=== PATIENT | female | born 1960 | race Caucasian/White ===

== ENCOUNTER 2022-05-07 12:58 | Outpatient (CLI) | payer MEDICARE ==
[2022-05-07 14:16] VITALS: BP 114/78
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
== END 2022-05-07 12:59 | disposition home or self-care (01) ==
LOC: SC 12:58
PROVIDERS: ATTEND Nurse Practitioner Family
DX: G47.10 Hypersomnia, unspecified (principal); R53.83 Other fatigue; R51.9 Headache, unspecified; R06.83 Snoring; G47.8 Other sleep disorders; I10 Essential (primary) hypertension; F32.A Depression, unspecified; F17.210 Nicotine dependence, cigarettes, uncomplicated
CPT/HCPCS: 99203; G0463; 99212

== ENCOUNTER 2022-08-15 11:21 | Outpatient (CLI) | payer MEDICARE ==
[2022-08-15 12:05] VITALS: BP 136/70
--- NOTE | 2022-08-15 12:06 | SLEEP CARE CONSULTATION ---
Information from patient questionnaire entered by Ryanne Murphy. I have reviewed and concur with the information entered by Ryanne Murphy. This document represents the service I personally performed and the decisions made by me, Aminata Levin ARNP. History of Present Illness Service Date and Time: 08/15/2022 1121 Previous diagnosis: Moderate, Obstructive Sleep Apnea-Hypopnea Syndrome AHI: 27.7 (in 2021) Reason for follow up: first compliance Equipment type: CPAP (ResMed, SD card only) Equipment obtained from: [employer] ([employer]) Mask style: Nasal Mask brand: Resmed (Mirage FX) Backup mask available: No (will keep old mask when replaced) Last cushion change: 1 month plus Prior sleep studies: No Type of Sleep Study: Polysomnography HPI additional information: NANNETTE LOUIS was diagnosed to have moderate, AHI 27.7, obstructive sleep apnea- hypopnea syndrome and returned today for CPAP therapy first compliance follow- up. Sleep Study - Results Type of Sleep Study: Polysomnography Prior sleep studies: No CPAP Compliance Data - Data Reviewed with Patient Average duration of nightly device use: 9 HRS, 40 MIN Compliance rate %: 91 (06/19/2022-08/14/2022) Current pressure setting (cmH2O): 4-15 (median 5.6, avg 10.1, max 11.8) Average residual AHI: 2.1 Central apnea: 1.3 Obstructive apnea: 0.4 Subjective Patient concerns: reports: air blowing in eyes (a little), dry mouth, nose, throat. denies: aerophagia, mask discomfort, mask leak noise, condensation in mask/hose, nasal congestion, epistaxis Observed to snore while using device: No Current pressure setting perceived as: comfortable On therapy, patient: reports: sleeping better, awakening more refreshed, being more awake and alert during the day, more rested overall. denies: drowsiness while driving Initial [place] Sleepiness Scale score: 6 Current Rousseau Sleepiness Scale score: 3 (08/15/2022) Allergies and Home Medications Drug allergies reviewed: Yes (Sulfa, Tetracylines) Home medication list reviewed: Yes (Astelin nasal spray; Amelia) Review of Systems Review of systems same as previous: No (Sinusitis) Physical Exam Vital signs obtained and entered by: RYANNE Bridges MA Blood Pressure: 136/70 (LEFT ARM) Cuff size: regular Heart Rate: 67 O2 Saturation: 98 Height: 4 ft 11 in Weight: 109 lb 9.6 oz Body Mass Index: 22.1 BMI Classification: Normal Impression and Plan 1. Obstructive Sleep Apnea-Hypopnea Syndrome, moderate, with good treatment compliance and good apnea control. On CPAP therapy, the patient has better sleep quality and is more rested overall. Patient has had a few difficulties with some air leaking into her eyes but just needs to adjust her mask for this to reduce. She also has had times where she will open her mouth while sleeping and got a dry mouth. We discussed ways to keep her mouth closed with using her nasal mask including a chinstrap or mouth tapes to keep lips closed. She voiced understanding and will look into these. The patients pressure will be changed to autoCPAP 10-12 cmH20 to reflect pressure being used. Patient advised to contact me if pressure change is uncomfortable so that it can be adjusted. Goals for apnea control discussed. Patient's apnea severity and rationale for treatment to reduce apnea, improve sleep quality and reduce cardiovascular and cerebrovascular events was reviewed. I also reviewed the benefit of consistent device use of CPAP for hypertension, cerebrovascular disease, depression and anxiety. * Change auto CPAP pressure to 10-12 cmH2O * Notify me if snoring with mask or feeling that the pressure is too much or too little * Call this office if any problems using CPAP * Return for follow up in 1-2 months, or sooner if concerns arise Counseling Topics: Spare mask Visit Type: In Office Time Spent with Patient (minutes): 22 Provider Statement: I spent 100% of the Face to Face Visit with the patient with greater than 50% spent counseling the patient and coordination of care.
== END 2022-08-15 11:22 | disposition home or self-care (01) ==
LOC: SC 11:21
PROVIDERS: ATTEND Nurse Practitioner Family
DX: G47.33 Obstructive sleep apnea (adult) (pediatric) (principal)
CPT/HCPCS: 99213; G0463; 99212

== ENCOUNTER 2022-09-04 10:46 | Outpatient (CLI) | payer MEDICARE ==
[2022-09-04 11:22] VITALS: BP 142/80
--- NOTE | 2022-09-04 11:22 | SLEEP CARE CONSULTATION ---
Information from patient questionnaire entered by Ryanne Murphy. I have reviewed and concur with the information entered by Ryanne Murphy. This document represents the service I personally performed and the decisions made by me, Aminata Levin ARNP. History of Present Illness Service Date and Time: 09/04/2022 1046 Previous diagnosis: Moderate, Obstructive Sleep Apnea-Hypopnea Syndrome AHI: 27.7 (in 2021) Reason for follow up: one month (F/U PRESSURE CHANGE ) Equipment type: CPAP (ResMed, SD card only) Equipment obtained from: [facility] (needs to) Mask style: Nasal Mask brand: Resmed (Mirage FX, small) Backup mask available: No (will keep old mask when replaced) Last cushion change: 3 months Prior sleep studies: No Type of Sleep Study: Polysomnography HPI additional information: NANNETTE LOUIS was diagnosed to have moderate, AHI 27.7, obstructive sleep apnea- hypopnea syndrome and returned today for CPAP therapy one month follow-up. Sleep Study - Results Type of Sleep Study: Polysomnography Prior sleep studies: No CPAP Compliance Data - Data Reviewed with Patient Average duration of nightly device use: 9 hours 19 minutes Compliance rate %: 90 (74/77 days used) Current pressure setting (cmH2O): 10-12 Average residual AHI: 2.5 Central apnea: 1.3 Obstructive apnea: 0.4 Average large leak: 12.7 lpm Subjective Patient concerns: reports: mask leak noise, nasal congestion, dry mouth, nose, throat. denies: aerophagia, mask discomfort, air blowing in eyes, condensation in mask/hose, epistaxis Observed to snore while using device: No Current pressure setting perceived as: comfortable On therapy, patient: reports: sleeping better, awakening more refreshed, being more awake and alert during the day, more rested overall. denies: drowsiness while driving Initial [place] Sleepiness Scale score: 6 Current [place] Sleepiness Scale score: 0 (09/04/22) Allergies and Home Medications Drug allergies reviewed: Yes (sulfa, tetracyclines) Home medication list reviewed: Yes (astelin nasal spray) Review of Systems Review of systems same as previous: Yes (no changes) Physical Exam Vital signs obtained and entered by: RYANNE Bridges MA Blood Pressure: 142/80 (LEFT ARM) Cuff size: regular Heart Rate: 91 O2 Saturation: 97 Height: 4 ft 11 in Weight: 107 lb 9.6 oz Body Mass Index: 21.7 BMI Classification: Normal Impression and Plan 1. Obstructive Sleep Apnea-Hypopnea Syndrome, moderate, with good treatment compliance and good apnea control. On CPAP therapy, the patient has better sleep quality and is more rested overall. Patient has been getting some dry mouth from oral venting. I advised her to try a chin strap or mouth strips to keep her mouth closed and she voiced understanding. Oral dryness can be reduced by adjusting humidity setting higher or heated hose lower or by adjusting both settings. Verbal instructions given on how to change humidity and heated hose settings with rationale explaining why to change. Oral dryness can also be reduced by reducing mask leaks. Patient's apnea severity and rationale for treatment to reduce apnea, improve sleep quality and reduce cardiovascular and cerebrovascular events was reviewed. I also reviewed the benefit of consistent device use of CPAP for hypertension, cerebrovascular disease, depression and anxiety. * Continue auto CPAP pressure at 10-12 cmH2O * Notify me if snoring with mask or feeling that the pressure is too much or too little * Call this office if any problems using CPAP * Return for follow up in 3 months, or sooner if concerns arise Counseling Topics: Spare mask Visit Type: In Office Time Spent with Patient (minutes): 24 Provider Statement: I spent 100% of the Face to Face Visit with the patient with greater than 50% spent counseling the patient and coordination of care.
== END 2022-09-04 10:47 | disposition home or self-care (01) ==
LOC: SC 10:46
PROVIDERS: ATTEND Nurse Practitioner Family
DX: G47.33 Obstructive sleep apnea (adult) (pediatric) (principal)
CPT/HCPCS: 99213; G0463; 99212

== ENCOUNTER 2022-10-30 22:34 | Emergency (ER) | payer MEDICARE ==
--- NOTE | 2022-10-30 22:51 | ED Physician Documentation ---
PD HPI CHEST PAIN - Stated complaint Stated Complaint: CHEST PX, DISORIENTED - History obtained from History obtained from: Patient, Family (daughter) - Additional information Additional information: 62yF with pmh anxiety and depression, multiple CVAs on eliquis, p/w self reported dizziness, slurring, and frequent falls. patient is poor historian and having difficulty giving further history. She does state she took her nighttime sleeping meds prior to arrival. Collateral history obtained from daughter who lives with the patient. She reports the patient has been depressed ever since a break-up from her boyfriend 2 to 3 weeks ago, staying in bed, not eating much, complaining of dizziness. Daughter states she has had multiple breakups and "she will get herself in a depressed state." She was seen at [facility] last week and also by her primary care provider Dr. Dey yesterday, found to have some LFT and renal function derangements and sludge in the gallbladder. 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 Patient has told her daughter that she has had multiple falls but the daughter herself has not seen her fall and states that her saw the patient standing on 1 leg talking on the phone while eating TV dinner yeste rday.Daughter does report that the patient has a history of anxiety and depression and has been on multiple sedating medications for "a long time" and it is not unusual for her to slur her words and be sedated in the evenings.Daughter does note that the patient has been seemingly forgetful, saying that she needs to feed the dogs after she has already fed them. She states it is possible the patient is taking extra doses of her medications. 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, Hysterectomy - Present Medications Home Medications: Ambulatory Orders Medication Instructions Recorded Confirmed Baclofen 10 mg PO TID 05/09/15 10/30/22 cloNIDine HCL [Clonidine HCl] 0.1 mg PO BID 05/09/15 10/30/22 Tramadol HCl 100 mg PO QID #20 tablet 06/30/16 10/30/22 Apixaban [Eliquis] See Rx Instructions .ROUTE .COMPLEX 08/15/22 10/30/22 Gabapentin [Gralise] See Rx Instructions .ROUTE .COMPLEX 08/15/22 10/30/22 Losartan Potassium See Rx Instructions .ROUTE .COMPLEX 08/15/22 10/30/22 Mirtazapine See Rx Instructions .ROUTE .COMPLEX 08/15/22 10/30/22 Ondansetron Odt [Zofran Odt] See Rx Instructions .ROUTE .COMPLEX 08/15/22 10/30/22 Rosuvastatin Calcium [Crestor] See Rx Instructions .ROUTE .COMPLEX 08/15/22 10/30/22 clonazePAM [Clonazepam] See Rx Instructions .ROUTE .COMPLEX 08/15/22 10/30/22 - Allergies Allergies/Adverse Reactions: Allergies Allergy/AdvReac Type Severity Reaction Status Date / Time Sulfa (Sulfonamide Allergy Rash Verified 10/30/22 22:43 Antibiotics) Tetracyclines Allergy Rash Verified 10/30/22 22:43 - Social History Does the pt smoke?: Yes Does the pt drink ETOH?: No Does the pt have substance abuse?: No - Immunizations Immunizations are current?: Yes PD ED PE NORMAL - Vitals Vital signs reviewed: Yes - General General: Alert and oriented X 3, No acute distress, Well developed/nourished, Other (sedated appearing) - HEENT HEENT: Atraumatic, PERRL, EOMI, Moist mucous membranes, Pharynx benign - Neck Neck: Supple, no meningeal sign - Cardiac Cardiac: RRR - Respiratory Respiratory: No respiratory distress, Clear bilaterally - Abdomen Abdomen: Non tender, Non distended - Derm Derm: Normal color, Warm and dry - Neuro Neuro: Alert and oriented X 3, nurse transitional 2-12 intact, No motor deficit, No sensory deficit, Other (slurred speech) - Psych Psych: Other (sedated appearing) Results - Vitals Vitals: Vital Signs - 24 hr 10/30/22 10/30/22 10/31/22 22:46 23:02 02:01 Temperature 36.9 C Heart Rate 82 73 64 Respiratory 16 21 9 L Rate Blood Pressure 133/80 H 126/62 92/56 L O2 Saturation 100 95 93 10/31/22 10/31/22 03:08 05:00 Temperature 36.2 C L Heart Rate 83 89 Respiratory 14 14 Rate Blood Pressure 153/73 H 146/75 H O2 Saturation 95 100 Oxygen O2 Source Room air - EKG (time done) 2242 Rate: Rate (enter#) (78) Rhythm: NSR, LAE Intervals: Normal NE QRS: Normal Ischemia: Normal ST segments Compare to prior EKG: Unchanged from prior EKG (06/30/16) - Labs Labs: Laboratory Tests 10/30/22 10/30/22 10/30/22 23:03 23:08 23:08 WBC 7.7 RBC 4.27 Hgb 12.3 Hct 40.1 MCV 93.9 MCH 28.8 MCHC 30.7 L RDW 15.2 H Plt Count 338 MPV 9.9 Neut # (Auto) 5.4 Lymph # (Auto) 1.3 L Bonner # (Auto) 0.8 Eos # (Auto) 0.2 Baso # (Auto) 0.1 Absolute Nucleated RBC 0.00 Nucleated RBC % 0.0 Sodium 138 Potassium 4.2 Chloride 100 L Carbon Dioxide 27 Anion Gap 11.0 BUN 34 H Creatinine 2.4 H Estimated GFR (MDRD) 20 L Glucose 119 H POC Whole Bld Glucose 114 H Calcium 9.5 Total Bilirubin 2.1 H AST 309 H ALT 271 H Alkaline Phosphatase 742 H Troponin I High Sens Total Protein 7.8 Albumin 4.0 Globulin 3.8 Albumin/Globulin Ratio 1.1 Lipase 39 10/30/22 23:08 WBC RBC Hgb Hct MCV MCH MCHC RDW Plt Count MPV Neut # (Auto) Lymph # (Auto) Bonner # (Auto) Eos # (Auto) Baso # (Auto) Absolute Nucleated RBC Nucleated RBC % Sodium Potassium Chloride Carbon Dioxide Anion Gap BUN Creatinine Estimated GFR (MDRD) Glucose POC Whole Bld Glucose Calcium Total Bilirubin AST ALT Alkaline Phosphatase Troponin I High Sens 10.9 Total Protein Albumin Globulin Albumin/Globulin Ratio Lipase PD Medical Decision Making - ED course ED course: 62-year-old woman with history of CVA on Eliquis, CKD 3, type 2 diabetes, anxiet y and depression presented for dizziness, slurring, and multiple falls.Patient found to be sedated appearing in the emergency Department and states she took her nighttime medications. Suspect polypharmacy as cause of her symptoms. CT head was unremarkable. Note that she had a visit with her primary care provider yesterday and was told she has renal and liver issues, reflected on her lab work today with elevated LFTs and renal function. Plan to allow her to metabolize her sedating sleep medications and then reevaluate in the morning. daughter has been updated. 5:15am - patient now ambulatory, AOX3, speaking coherently. CN2-12 intact. normal cerebellar testing. Plan to dc home for outpatient follow up with her PCP and neurology. Departure - Departure Disposition: 01 Home, Self Care Clinical Impression: Dizziness, Sedated due to multiple medications Condition: Good Instructions: ED Dizziness UKO Follow-Up: Ruthy Tello, [Physician No Access] - Comments: You were seen in the emergency department for dizziness and sedation. Your CT of the head uncovered no new issues. Your labwork did show liver function and kidney function problems. You should strongly consider cutting back on sedating medications. Please make an appointment with your primary care provider to review labwork and medication use. I also am enclosing a referral to neurology. Return to the emergency department for new or worsening symptoms or if you have other concerns.
--- OUTSIDE RECORDS SUMMARY | 2022-10-30 22:53 | EXTERNAL MEDICAL SUMMARY RPT | Continuity of Care Document ---
:1960 Author Organization [facility] Address [address] [place] [address] Phone Care Team Providers Name Role Phone Arcenio Dey Unavailable Unavailable Allergies and Intolerances date description facility type (no date) Sulfa (Sulfonamide Antibiotics) [facility] (unknown) Encounters No information. Functional Status No information. Immunizations No information. Medications No information. Problems date description facility 2022-10-26 00:00 Chest pain [facility] 2022-10-26 00:00 Elevated liver function tests [facility] Procedures date description facility 2022-10-26 00:00 X-ray of chest, single view [facility] 2022-10-26 00:00 US abdomen complete [facility] Results/Labs test date author facility value unit interpret ation Result panel 1 (unknown) (no date[facility]) Result panel 2 (unknown) (no date) (unknown[facility] Result panel 3 (unknown) (no date) (unknown[facility]) Result panel 4 (unknown) (no date) (unknown[facility]) Result panel 5 (unknown) (no date) (unknown[facility]) Result panel 6 (unknown) (no date) (unknown[facility]) Result panel 7 (unknown) (no date) (unknown[facility]) Result panel 8 (unknown) (no date) (unknown[facility]) Result panel 9 (unknown) (no date) (unknown[facility]) Result panel 10 (unknown) (no date) (unknown[facility]) Result panel 11 (unknown) (no date) (unknown[facility]) Result panel 12 (unknown) (no date) (unknown[facility]) Result panel 13 (unknown) (no date) (unknown[facility]) Result panel 14 (unknown) (no date) (unknown[facility]) Result panel 15 (unknown) (no date) (unknown[facility]) Result panel 16 (unknown) (no date) (unknown[facility]) Result panel 17 (unknown) (no date) (unknown[facility]) Result panel 18 (unknown) (no date) (unknown[facility]) Result panel 19 (unknown) (no date) (unknown[facility]) Result panel 20 (unknown) (no date) (unknown[facility]) Result panel 21 (unknown) (no date) (unknown[facility]) Result panel 22 (unknown) (no date) (unknown[facility]) Result panel 23 (unknown) (no date) (unknown[facility]) Result panel 24 (unknown) (no date) (unknown[facility]) Result panel 25 (unknown) (no date) (unknown[facility]) Result panel 26 (unknown) (no date) (unknown[facility]) Result panel 27 (unknown) (no date) (unknown[facility]) Result panel 28 (unknown) (no date) (unknown[facility]) Result panel 29 (unknown) (no date) (unknown[facility]) Result panel 30 (unknown) (no date) (unknown[facility]) Result panel 31 (unknown) (no date) (unknown[facility]) Result panel 32 (unknown) (no date) (unknown[facility]) Result panel 33 (unknown) (no date) (unknown[facility]) Result panel 34 (unknown) (no date) (unknown[facility]) Result panel 35 (unknown) (no date) (unknown[facility]) Result panel 36 (unknown) (no date) (unknown[facility]) Result panel 37 (unknown) (no date) (unknown[facility]) Result panel 38 (unknown) (no date) (unknown[facility]) Result panel 39 (unknown) (no date) (unknown[facility]) Result panel 40 (unknown) (no date) (unknown[facility]) Result panel 41 (unknown) (no date) (unknown[facility]) Result panel 42 (unknown) (no date) (unknown[facility]) Result panel 43 (unknown) (no date) (unknown[facility]) Result panel 44 (unknown) (no date) (unknown[facility]) Result panel 45 (unknown) (no date) (unknown[facility]) Result panel 46 (unknown) (no date) (unknown[facility]) Result panel 47 (unknown) (no date) (unknown[facility]) Result panel 48 (unknown) (no date) (unknown[facility]) Result panel 49 (unknown) (no date) (unknown[facility]) Result panel 50 (unknown) (no date) (unknown[facility]) Result panel 51 (unknown) (no date) (unknown[facility]) Result panel 52 (unknown) (no date) (unknown[facility]) Result panel 53 (unknown) (no date) (unknown[facility]) Result panel 54 (unknown) (no date) (unknown[facility]) Result panel 55 (unknown) (no date) (unknown[facility]) Result panel 56 (unknown) (no date) (unknown[facility]) Result panel 57 (unknown) (no date) (unknown[facility]) Result panel 58 (unknown) (no date) (unknown[facility]) Result panel 59 (unknown) (no date) (unknown[facility]) Result panel 60 (unknown) (no date) (unknown[facility]) Result panel 61 (unknown) (no date) (unknown[facility]) Result panel 62 (unknown) (no date) (unknown[facility]) Result panel 63 (unknown) (no date) (unknown[facility]) Result panel 64 (unknown) (no date) (unknown[facility]) Result panel 65 (unknown) (no date) (unknown[facility]) Result panel 66 (unknown) (no date) (unknown[facility]) Result panel 67 (unknown) (no date) (unknown[facility]) Result panel 68 (unknown) (no date) (unknown[facility]) Result panel 69 (unknown) (no date) (unknown[facility]) Result panel 70 (unknown) (no date) (unknown[facility]) Result panel 71 (unknown) (no date) (unknown[facility]) Result panel 72 (unknown) (no date) (unknown[facility]) Result panel 73 (unknown) (no date) (unknown[facility]) Result panel 74 (unknown) (no date) (unknown[facility]) Result panel 75 (unknown) (no date) (unknown[facility]) Result panel 76 (unknown) (no date) (unknown[facility]) Result panel 77 (unknown) (no date) (unknown[facility]) Result panel 78 (unknown) (no date) (unknown[facility]) Result panel 79 (unknown) (no date) (unknown[facility]) Result panel 80 (unknown) (no date) (unknown[facility]) Result panel 81 (unknown) (no date) (unknown[facility]) Result panel 82 (unknown) (no date) (unknown[facility]) Result panel 83 (unknown) (no date) (unknown[facility]) Result panel 84 (unknown) (no date) (unknown[facility]) Result panel 85 (unknown) (no date) (unknown[facility]) Result panel 86 (unknown) (no date) (unknown[facility]) Result panel 87 (unknown) (no date) (unknown[facility]) Result panel 88 (unknown) (no date) (unknown[facility]) Result panel 89 (unknown) (no date) (unknown[facility]) Result panel 90 (unknown) (no date) (unknown[facility]) Result panel 91 (unknown) (no date) (unknown[facility]) Result panel 92 (unknown) (no date) (unknown[facility]) Result panel 93 (unknown) (no date) (unknown[facility]) Result panel 94 (unknown) (no date) (unknown[facility]) Result panel 95 (unknown) (no date) (unknown[facility]) Result panel 96 (unknown) (no date) (unknown[facility]) Result panel 97 (unknown) (no date) (unknown[facility]) Result panel 98 (unknown) (no date) (unknown[facility]) Result panel 99 (unknown) (no date) (unknown[facility]) Result panel 100 (unknown) (no date) (unknown[facility]) Result panel 101 (unknown) (no date) (unknown[facility]) Result panel 102 (unknown) (no date) (unknown[facility]) Result panel 103 (unknown) (no date) (unknown[facility]) Result panel 104 (unknown) (no date) (unknown[facility]) Result panel 105 (unknown) (no date) (unknown[facility]) Result panel 106 (unknown) (no date) (unknown[facility]) Result panel 107 (unknown) (no date) (unknown[facility]) Result panel 108 (unknown) (no date) (unknown[facility]) Result panel 109 (unknown) (no date) (unknown[facility]) Result panel 110 (unknown) (no date) (unknown[facility]) Result panel 111 (unknown) (no date) (unknown[facility]) Result panel 112 (unknown) (no date) (unknown[facility]) Result panel 113 (unknown) (no date) (unknown[facility]) Result panel 114 (unknown) (no date) (unknown[facility]) Result panel 115 (unknown) (no date) (unknown[facility]) Result panel 116 (unknown) (no date) (unknown[facility]) Result panel 117 (unknown) (no date) (unknown[facility]) Result panel 118 (unknown) (no date) (unknown[facility]) Result panel 119 (unknown) (no date) (unknown) [facility]) Result panel 120 (unknown) (no date) (unknown[facility]) Result panel 121 (unknown) (no date) (unknown[facility]) Result panel 122 (unknown) (no date) (unknown[facility]) Result panel 123 (unknown) (no date) (unknown) [facility]) Result panel 124 (unknown) (no date) (unknown) [facility]) Result panel 125 (unknown) (no date) (unknown[facility]) Result panel 126 (unknown) (no date) (unknown[facility]) Result panel 127 (unknown) (no date) (unknown[facility]) Result panel 128 (unknown) (no date) (unknown[facility]) Result panel 129 (unknown) (no date) (unknown[facility]) Result panel 130 (unknown) (no date) (unknown[facility]) Result panel 131 (unknown) (no date) (unknown[facility]) Result panel 132 (unknown) (no date) (unknown[facility]) Result panel 133 (unknown) (no date) (unknown[facility]) Result panel 134 (unknown) (no date) (unknown[facility]) Result panel 135 (unknown) (no date) (unknown[facility]) Result panel 136 (unknown) (no date) (unknown) [facility]) Result panel 137 (unknown) (no date) (unknown[facility]) Result panel 138 (unknown) (no date) (unknown) [facility]) Result panel 139 (unknown) (no date) (unknown[facility]) Result panel 140 (unknown) (no (unknown) (unknown) (no value) (units (unk nown) date) unknown) (unknown) (no (unknown) (unknown) 10/26/22 (units (unkno wn) date) unknown) (unknown) (no (unknown) (unknown) [id number] (units (unkno wn) date) unknown) (unknown) (no (unknown) (unknown) [address] [place] [address] (units (unknown) date) unknown) (unknown) (no (unknown) (unknown) Accession Number: (units (unknown) date) [id number] unknown) (unknown) (no (unknown) (unknown) Age/Sex: 62 / F (units (unknown) date) Date of Service: unknown) (unknown) (no (unknown) (unknown) MAGY Escobedo (units ( unknown) date) [id number] unknown) (unknown) (no (unknown) (unknown) Approved by: Robert Rossunits (unknown) date) Ana Maria Arriaga on unknown) 10/26/2022 at 18:42 (unknown) (no (unknown) (unknown) Bones and chest (units (unknown) date) wall: No unknown) suspicious bony lesions. Overlying soft tissues (unknown) (no (unknown) (unknown) COMPARISON: (units (un known) date) [facility], unknown) CR, XR CHEST 1V, 03/30/2022, 18:39. (unknown) (no (unknown) (unknown) : 1960 (units (unknown) date) Acct:[id number] unknown) (unknown) (no (unknown) (unknown) Dictated by: Robert (units (unknown) date) Ana Maria Arriaga on unknown) 10/26/2022 at 18:40 (unknown) (no (unknown) (unknown) FINDINGS: (units (unkn own) date) unknown) (unknown) (no (unknown) (unknown) IMPRESSION: No (units (unknown) date) acute unknown) cardiopulmonary pathology. (unknown) (no (unknown) (unknown) INDICATIONS: (units (u nknown) date) chest pain unknown) (unknown) (no (unknown) (unknown) [facility] (units (unknown) date) unknown) (unknown) (no (unknown) (unknown) Loc: ED (units (unkno wn) date) unknown) (unknown) (no (unknown) (unknown) Lungs and pleura: (units (unknown) date) Lungs are clear. unknown) No pleural effusions or pneumothorax. (unknown) (no (unknown) (unknown) Mediastinum: (units (u nknown) date) Mediastinal unknown) contours appear normal. Heart size is normal. (unknown) (no (unknown) (unknown) Ordering (units (unkno wn) date) Provider: unknown) Vignesh Garcia D.O. (unknown) (no (unknown) (unknown) PROCEDURE: XR (units ( unknown) date) CHEST 1V unknown) (unknown) (no (unknown) (unknown) Patient: (units (unkno wn) date) Mona Hunter MR#: unknown) [id number] (unknown) (no (unknown) (unknown) Procedure: XR (units ( unknown) date) chest 1V unknown) (unknown) (no (unknown) (unknown) Signed (units (unkno wn) date) unknown) (unknown) (no (unknown) (unknown) Surgical changes (units (unknown) date) and devices: None. unknown) (unknown) (no (unknown) (unknown) TECHNIQUE: One (units (unknown) date) view of the chest unknown) was acquired. (unknown) (no (unknown) (unknown) XRay Report (units (un known) date) unknown) (unknown) (no (unknown) (unknown) appear (units (unkno wn) date) unknown) (unknown) (no (unknown) (unknown) unremarkable. (units ( unknown) date) unknown) Result panel 141 (unknown) (no date) (unknown) (unknown) 0.9 % (unkn own) (unknown) (no date) (unknown) (unknown) 10.2 % (unkn own) (unknown) (no date) (unknown) (unknown) 100 /ul (unkn own) (unknown) (no date) (unknown) (unknown) 11.9 g/dl (unkn own) (unknown) (no date) (unknown) (unknown) 14.7 % (unkn own) (unknown) (no date) (unknown) (unknown) 1900 /ul (unkn own) (unknown) (no date) (unknown) (unknown) 200 /ul (unkn own) (unknown) (no date) (unknown) (unknown) 284 x10 3/ul (unkn own) (unknown) (no date) (unknown) (unknown) 29.8 pg (unkn own) (unknown) (no date) (unknown) (unknown) 3.1 % (unkn own) (unknown) (no date) (unknown) (unknown) 32.2 % (unkn own) (unknown) (no date) (unknown) (unknown) 3200 /ul (unkn own) (unknown) (no date) (unknown) (unknown) 33.1 % (unkn own) (unknown) (no date) (unknown) (unknown) 36.0 % (unkn own) (unknown) (no date) (unknown) (unknown) 4.00 x10 6/ul (unkn own) (unknown) (no date) (unknown) (unknown) 5.9 x10 3/ul (unkn own) (unknown) (no date) (unknown) (unknown) 53.6 % (unkn own) (unknown) (no date) (unknown) (unknown) 600 /ul (unkn own) (unknown) (no date) (unknown) (unknown) 90.0 fl (unkn own) Result panel 142 (unknown) (no date) (unknown) (unknown) 0.9 mg/dl (unkn own) (unknown) (no date) (unknown) (unknown) 1.2 (units unknown) (unknown) (unknown) (no date) (unknown) (unknown) 1.66 mg/dl (unkn own) (unknown) (no date) (unknown) (unknown) 101 mmol/l (unkn own) (unknown) (no date) (unknown) (unknown) 13.9 (units unknown) (unknown) (unknown) (no date) (unknown) (unknown) 14.3 seconds (unkn own) (unknown) (no date) (unknown) (unknown) 141 mmol/l (unkn own) (unknown) (no date) (unknown) (unknown) 143 u/l (unkn own) (unknown) (no date) (unknown) (unknown) 153 u/l (unkn own) (unknown) (no date) (unknown) (unknown) 2.0 mg/dl (unkn own) (unknown) (no date) (unknown) (unknown) 23 mg/dl (unkn own) (unknown) (no date) (unknown) (unknown) 263 iu/l (unkn own) (unknown) (no date) (unknown) (unknown) 3.7 mmol/l (unkn own) (unknown) (no date) (unknown) (unknown) 30 mmol/l (unkn own) (unknown) (no date) (unknown) (unknown) 35 ml/min (unkn own) (unknown) (no date) (unknown) (unknown) 35 ml/min (unkn own) (unknown) (no date) (unknown) (unknown) 375 iu/l (unkn own) (unknown) (no date) (unknown) (unknown) 38 seconds (unkn own) (unknown) (no date) (unknown) (unknown) 38 seconds (unkn own) (unknown) (no date) (unknown) (unknown) 424 u/l (unkn own) (unknown) (no date) (unknown) (unknown) 7.9 g/dl (unkn own) (unknown) (no date) (unknown) (unknown) 9.5 mg/dl (unkn own) (unknown) (no date) (unknown) (unknown) 95 mg/dl (unkn own) (unknown) (no date) (unknown) (unknown) 95 mg/dl (unkn own) Result panel 143 (unknown) (no date) (unknown) (unknown) < 0.012 ng/ml (unkn own) (unknown) (no date) (unknown) (unknown) < 0.012 ng/ml (unkn own) (unknown) (no date) (unknown) (unknown) 0.5 % (unkn own) (unknown) (no date) (unknown) (unknown) 0.73 ng/ml (unkn own) (unknown) (no date) (unknown) (unknown) 0.9 mg/dl (unkn own) (unknown) (no date) (unknown) (unknown) 1.66 mg/dl (unkn own) (unknown) (no date) (unknown) (unknown) 101 mmol/l (unkn own) (unknown) (no date) (unknown) (unknown) 13.9 (units (unkn own) unknown) (unknown) (no date) (unknown) (unknown) 141 mmol/l (unkn own) (unknown) (no date) (unknown) (unknown) 143 u/l (unkn own) (unknown) (no date) (unknown) (unknown) 153 u/l (unkn own) (unknown) (no date) (unknown) (unknown) 2.0 mg/dl (unkn own) (unknown) (no date) (unknown) (unknown) 23 mg/dl (unkn own) (unknown) (no date) (unknown) (unknown) 263 iu/l (unkn own) (unknown) (no date) (unknown) (unknown) 3.7 mmol/l (unkn own) (unknown) (no date) (unknown) (unknown) 30 mmol/l (unkn own) (unknown) (no date) (unknown) (unknown) 35 ml/min (unkn own) (unknown) (no date) (unknown) (unknown) 35 ml/min (unkn own) (unknown) (no date) (unknown) (unknown) 375 iu/l (unkn own) (unknown) (no date) (unknown) (unknown) 424 u/l (unkn own) (unknown) (no date) (unknown) (unknown) 7.9 g/dl (unkn own) (unknown) (no date) (unknown) (unknown) 9.5 mg/dl (unkn own) (unknown) (no date) (unknown) (unknown) 95 mg/dl (unkn own) (unknown) (no date) (unknown) (unknown) 95 mg/dl (unkn own) Result panel 144 (unknown) (no (unknown) (unknown) (no value) (units (unk nown) date) unknown) (unknown) (no (unknown) (unknown) 10/26/22 (units (unkno wn) date) 10/26/22 10/26/22 unknown) Range/Units (unknown) (no (unknown) (unknown) 10/26/22 16:47 (units (unknown) date) unknown) (unknown) (no (unknown) (unknown) 10/26/22 17:56 (units (unknown) date) unknown) (unknown) (no (unknown) (unknown) 10/26/22 18:00 (units (unknown) date) unknown) (unknown) (no (unknown) (unknown) 10/26/22 18:20 (units (unknown) date) unknown) (unknown) (no (unknown) (unknown) 10/26/22 18:30 (units (unknown) date) unknown) (unknown) (no (unknown) (unknown) 10/26/22 (units (unkno wn) date) unknown) (unknown) (no (unknown) (unknown) 0924 (units (unkno wn) date) unknown) (unknown) (no (unknown) (unknown) 17:50 (units (unkno wn) date) unknown) (unknown) (no (unknown) (unknown) 18:00 18:00 (units (un known) date) 18:00 unknown) (unknown) (no (unknown) (unknown) ALT 375 H (<35) (units (unknown) date) IU/L unknown) (unknown) (no (unknown) (unknown) APTT 38 H (units (unkn own) date) (26-36) SECONDS unknown) (unknown) (no (unknown) (unknown) AST 263 H (units (unkn own) date) (14-36) IU/L unknown) (unknown) (no (unknown) (unknown) Age/Sex: 62 / F (units (unknown) date) unknown) (unknown) (no (unknown) (unknown) Alkaline (units (unkno wn) date) Phosphatase 424 H unknown) (38-126) U/L (unknown) (no (unknown) (unknown) Allergies (units (unkn own) date) unknown) (unknown) (no (unknown) (unknown) Allergy/AdvReac (units (unknown) date) Type Severity unknown) Reaction Status Date / Time (unknown) (no (unknown) (unknown) Antibiotics) (units (u nknown) date) Skin unknown) (unknown) (no (unknown) (unknown) Aspirin (Aspirin (units (unknown) date) 81 Mg Chew Tab) unknown) 324 mg PO NOW ONE (unknown) (no (unknown) (unknown) BUN 23 H (7-17) (units (unknown) date) mg/dL unknown) (unknown) (no (unknown) (unknown) BUN/Creatinine (units (unknown) date) Ratio 13.9 (6-22) unknown) (unknown) (no (unknown) (unknown) Baso # (Auto) (units ( unknown) date) 100 (0-100) /uL unknown) (unknown) (no (unknown) (unknown) Baso % (Auto) (units ( unknown) date) 0.9 (0-2) % unknown) (unknown) (no (unknown) (unknown) Bedside Urine (units ( unknown) date) Bilirubin - unknown) Negative (unknown) (no (unknown) (unknown) Bedside Urine (units ( unknown) date) Glucose Negative unknown) (unknown) (no (unknown) (unknown) Bedside Urine (units ( unknown) date) Ketone - Negative unknown) (unknown) (no (unknown) (unknown) Bedside Urine (units ( unknown) date) Leukocytes - unknown) Negative (unknown) (no (unknown) (unknown) Bedside Urine (units ( unknown) date) Nitrite - unknown) Negative (unknown) (no (unknown) (unknown) Bedside Urine (units ( unknown) date) Occult Blood +/ unknown) (unknown) (no (unknown) (unknown) Bedside Urine (units ( unknown) date) Protein - unknown) Negative (unknown) (no (unknown) (unknown) Bedside Urine (units ( unknown) date) Urobilinogen - unknown) Negative (unknown) (no (unknown) (unknown) Bedside Urine pH (units (unknown) date) 6.0 unknown) (unknown) (no (unknown) (unknown) Blood Pressure (units (unknown) date) 151/68 H 10/26/22 unknown) 17:50 (unknown) (no (unknown) (unknown) Blood Pressure (units (unknown) date) 151/68 H unknown) (unknown) (no (unknown) (unknown) CK-MB (CK-2) (units (u nknown) date) 0.73 (<2.37) unknown) ng/mL (unknown) (no (unknown) (unknown) CK-MB (CK-2) Rel (units (unknown) date) Index 0.5 L unknown) (1.5-5.0) % (unknown) (no (unknown) (unknown) COVID19 -Nasal (units (unknown) date) RAPID/Pre-Proc unknown) Stat (unknown) (no (unknown) (unknown) Calcium 9.5 (units (un known) date) (8.4-10.2) mg/dL unknown) (unknown) (no (unknown) (unknown) Carbon Dioxide (units (unknown) date) 30 (22-32) mmol/L unknown) (unknown) (no (unknown) (unknown) Chief Complaint: (units (unknown) date) Chest Pain unknown) (unknown) (no (unknown) (unknown) Chloride 101 (units (u nknown) date) (98-107) mmol/L unknown) (unknown) (no (unknown) (unknown) Complete Blood (units (unknown) date) Count AUTO DIFF unknown) Stat (unknown) (no (unknown) (unknown) Comprehensive (units ( unknown) date) Metabolic Panel unknown) Stat (unknown) (no (unknown) (unknown) Course (units (unkno wn) date) unknown) (unknown) (no (unknown) (unknown) Creatinine 1.66 (units (unknown) date) H (0.52-1.04) unknown) mg/dL (unknown) (no (unknown) (unknown) : 1960 (units (unknown) date) Acct:[id number] unknown) (unknown) (no (unknown) (unknown) Date of Service: (units (unknown) date) 10/26/22 unknown) (unknown) (no (unknown) (unknown) Departure (units (unkn own) date) unknown) (unknown) (no (unknown) (unknown) Discharge Plan (units (unknown) date) unknown) (unknown) (no (unknown) (unknown) Discontinued (units (u nknown) date) Medications unknown) (unknown) (no (unknown) (unknown) Documented By: (units (unknown) date) KEB unknown) (unknown) (no (unknown) (unknown) ED Orders (units (unkn own) date) unknown) (unknown) (no (unknown) (unknown) EKG-12 Lead Stat (units (unknown) date) unknown) (unknown) (no (unknown) (unknown) ER Physician: (units ( unknown) date) Ruthy Vance unknown) D.O. (unknown) (no (unknown) (unknown) Emergency Report (units (unknown) date) unknown) (unknown) (no (unknown) (unknown) Eos # (Auto) 200 (units (unknown) date) (0-450) /uL unknown) (unknown) (no (unknown) (unknown) Eos % (Auto) 3.1 (units (unknown) date) (2-4) % unknown) (unknown) (no (unknown) (unknown) Esterase (units (unkno wn) date) unknown) (unknown) (no (unknown) (unknown) Estimated GFR 35 (units (unknown) date) L (>60) mL/min unknown) (unknown) (no (unknown) (unknown) Exam (units (unkno wn) date) unknown) (unknown) (no (unknown) (unknown) Arcenio Dey (units (unk nown) date) MD Madhav unknown) [Primary Care Provider] (unknown) (no (unknown) (unknown) General (units (unkno wn) date) unknown) (unknown) (no (unknown) (unknown) Glucose 95 (units (unk nown) date) (80-110) mg/dL unknown) (unknown) (no (unknown) (unknown) HPI - Chest Pain (units (unknown) date) unknown) (unknown) (no (unknown) (unknown) Hct 36.0 (36-46) (units (unknown) date) % unknown) (unknown) (no (unknown) (unknown) Hgb 11.9 L (units (unk nown) date) (12.0-16.0) g/dL unknown) (unknown) (no (unknown) (unknown) INR 1.2 (units (unkno wn) date) (0.9-1.3) unknown) (unknown) (no (unknown) (unknown) Initial Vital (units ( unknown) date) Signs unknown) (unknown) (no (unknown) (unknown) Initial Vital (units ( unknown) date) Signs: unknown) (unknown) (no (unknown) (unknown) [facility] (units (unknown) date) [address] unknown) [place] [address] (unknown) (no (unknown) (unknown) Lab Data (units (unkno wn) date) unknown) (unknown) (no (unknown) (unknown) Lab Results (units (un known) date) unknown) (unknown) (no (unknown) (unknown) Labs: (units (unkno wn) date) unknown) (unknown) (no (unknown) (unknown) Last Admin: (units (un known) date) 10/26/22 18:59 unknown) Dose: 324 mg (unknown) (no (unknown) (unknown) Lipase 153 (units (unk nown) date) (23-300) U/L unknown) (unknown) (no (unknown) (unknown) Lipase Stat (units (un known) date) unknown) (unknown) (no (unknown) (unknown) Lymph # (Auto) (units (unknown) date) 1900 (9556-6714) unknown) /uL (unknown) (no (unknown) (unknown) Lymph % (Auto) (units (unknown) date) 32.2 (25-40) % unknown) (unknown) (no (unknown) (unknown) MCH 29.8 (26-34) (units (unknown) date) PG unknown) (unknown) (no (unknown) (unknown) MCHC 33.1 (units (unkn own) date) (30-36) % unknown) (unknown) (no (unknown) (unknown) MCV 90.0 (units (unkno wn) date) (80-100) fL unknown) (unknown) (no (unknown) (unknown) MDM - Chest Pain (units (unknown) date) unknown) (unknown) (no (unknown) (unknown) Magnesium 2.0 (units ( unknown) date) (1.6-2.3) mg/dL unknown) (unknown) (no (unknown) (unknown) Magnesium Stat (units (unknown) date) unknown) (unknown) (no (unknown) (unknown) Mode of arrival: (units (unknown) date) Ambulatory unknown) (unknown) (no (unknown) (unknown) [place] # (Auto) (units ( unknown) date) 600 (0-900) /uL unknown) (unknown) (no (unknown) (unknown) [place] % (Auto) (units ( unknown) date) 10.2 (3-14) % unknown) (unknown) (no (unknown) (unknown) Neut # (Auto) (units ( unknown) date) 3200 (4226-8610) unknown) /uL (unknown) (no (unknown) (unknown) Neut % (Auto) (units ( unknown) date) 53.6 (50-75) % unknown) (unknown) (no (unknown) (unknown) Ordered: (units (unkno wn) date) unknown) (unknown) (no (unknown) (unknown) Orders (units (unkno wn) date) unknown) (unknown) (no (unknown) (unknown) Oxygen Delivery (units (unknown) date) Method 10/26/22 unknown) 17:50 (unknown) (no (unknown) (unknown) Oxygen Delivery (units (unknown) date) Method Room Air unknown) (unknown) (no (unknown) (unknown) PT 14.3 H (units (unkn own) date) (10.1-12.7) unknown) SECONDS (unknown) (no (unknown) (unknown) Partial (units (unkno wn) date) Thromboplastin unknown) Time Stat (unknown) (no (unknown) (unknown) Patient History (units (unknown) date) unknown) (unknown) (no (unknown) (unknown) Patient: (units (unkno wn) date) Mona Hunter MR#: unknown) [id number] (unknown) (no (unknown) (unknown) Plt Count 284 (units ( unknown) date) (150-400) X103/uL unknown) (unknown) (no (unknown) (unknown) Potassium 3.7 (units ( unknown) date) (3.4-5.1) mmol/L unknown) (unknown) (no (unknown) (unknown) Prothrombin Time (units (unknown) date) INR Stat unknown) (unknown) (no (unknown) (unknown) Pulse Oximetry (units (unknown) date) 99 10/26/22 17:50 unknown) (unknown) (no (unknown) (unknown) Pulse Oximetry (units (unknown) date) 99 unknown) (unknown) (no (unknown) (unknown) Pulse Rate 86 (units ( unknown) date) 10/26/22 17:50 unknown) (unknown) (no (unknown) (unknown) Pulse Rate 86 (units ( unknown) date) unknown) (unknown) (no (unknown) (unknown) RBC 4.00 (units (unkno wn) date) (4.0-5.2) X106/uL unknown) (unknown) (no (unknown) (unknown) RDW 14.7 (units (unkno wn) date) (11.6-14.8) % unknown) (unknown) (no (unknown) (unknown) Referrals: (units (unk nown) date) unknown) (unknown) (no (unknown) (unknown) Related Data (units (u nknown) date) unknown) (unknown) (no (unknown) (unknown) Respiratory Rate (units (unknown) date) 18 10/26/22 17:50 unknown) (unknown) (no (unknown) (unknown) Respiratory Rate (units (unknown) date) 18 unknown) (unknown) (no (unknown) (unknown) Result diagrams: (units (unknown) date) unknown) (unknown) (no (unknown) (unknown) Signed By: (units (unk nown) date) unknown) (unknown) (no (unknown) (unknown) Smoking Status: (units (unknown) date) Current every day unknown) smoker (unknown) (no (unknown) (unknown) Social History (units (unknown) date) (Reviewed unknown) 03/30/22 @ 21:55 by Luzma Cooley DO) (unknown) (no (unknown) (unknown) Sodium 141 (units (unk nown) date) (137-145) mmol/L unknown) (unknown) (no (unknown) (unknown) Source: patient (units (unknown) date) unknown) (unknown) (no (unknown) (unknown) Stated (units (unkno wn) date) Complaint: Chest unknown) pain, squeezing, light headed, 'not right' (unknown) (no (unknown) (unknown) Stop: 10/26/22 (units (unknown) date) 17:57 unknown) (unknown) (no (unknown) (unknown) Substance Use (units ( unknown) date) Type: does not unknown) use (unknown) (no (unknown) (unknown) Sulfa (units (unkno wn) date) (Sulfonamide unknown) Allergy Redness of Verified 10/26/22 17:50 (unknown) (no (unknown) (unknown) Temperature 98.1 (units (unknown) date) F 10/26/22 17:50 unknown) (unknown) (no (unknown) (unknown) Temperature 98.1 (units (unknown) date) F unknown) (unknown) (no (unknown) (unknown) Time Seen by (units (u nknown) date) Provider: unknown) 10/26/22 19:14 (unknown) (no (unknown) (unknown) Total Bilirubin (units (unknown) date) 0.9 (0.2-1.3) unknown) mg/dL (unknown) (no (unknown) (unknown) Total Creatine (units (unknown) date) Kinase 143 H unknown) (30-135) U/L (unknown) (no (unknown) (unknown) Total Protein (units ( unknown) date) 7.9 (6.3-8.2) unknown) g/dL (unknown) (no (unknown) (unknown) Troponin + CK (units ( unknown) date) Cardiac Panel unknown) Stat (unknown) (no (unknown) (unknown) Troponin I < (units (u nknown) date) 0.012 unknown) (0.01-0.034) ng/mL (unknown) (no (unknown) (unknown) Urine Dip (units (unkn own) date) unknown) (unknown) (no (unknown) (unknown) Urine (units (unkno wn) date) Microscopic Stat unknown) (unknown) (no (unknown) (unknown) Urine Specific (units (unknown) date) Ophelia 1.015 unknown) (unknown) (no (unknown) (unknown) Vital Signs - 8 (units (unknown) date) hr unknown) (unknown) (no (unknown) (unknown) Vital Signs (units (un known) date) unknown) (unknown) (no (unknown) (unknown) Vital signs: (units (u nknown) date) unknown) (unknown) (no (unknown) (unknown) WBC 5.9 (units (unkno wn) date) (4.5-11.0) unknown) X103/uL (unknown) (no (unknown) (unknown) XR chest 1V Stat (units (unknown) date) unknown) (unknown) (no (unknown) (unknown) [Embedded Image (units (unknown) date) Not Available] unknown) (unknown) (no (unknown) (unknown) alcohol intake (units (unknown) date) frequency: 0-2 unknown) drinks per day (unknown) (no (unknown) (unknown) tobacco type: (units ( unknown) date) cigarettes unknown) Result panel 145 (unknown) (no (unknown) (unknown) (no value) (units (unk nown) date) unknown) (unknown) (no (unknown) (unknown) 10/26/22 (units (unkno wn) date) unknown) (unknown) (no (unknown) (unknown) [address] (units (unkno wn) date) unknown) (unknown) (no (unknown) (unknown) [address] [place] [address] (units (unknown) date) unknown) (unknown) (no (unknown) (unknown) 7.5 mm. There (units ( unknown) date) appears to be unknown) debris/sludge or mural thickening involving the (unknown) (no (unknown) (unknown) 8.8 cm long; (units (u nknown) date) unknown) (unknown) (no (unknown) (unknown) Accession Number: (units (unknown) date) [id number] unknown) (unknown) (no (unknown) (unknown) Age/Sex: 62 / F (units (unknown) date) Date of Service: unknown) (unknown) (no (unknown) (unknown) [place], [place] (units ( unknown) date) [id number] unknown) (unknown) (no (unknown) (unknown) Aorta: Visualized (units (unknown) date) aorta is normal in unknown) caliber at less than 3 cm. (unknown) (no (unknown) (unknown) Approved by: (units (u nknown) date) Matthew Barrera, unknown) Aan Maria on 10/26/2022 at 20:46 (unknown) (no (unknown) (unknown) Biliary ducts: (units (unknown) date) Intrahepatic bile unknown) ducts are slightly dilated. Extrahepatic (unknown) (no (unknown) (unknown) COMPARISON: None. (units (unknown) date) unknown) (unknown) (no (unknown) (unknown) : 1960 (units (unknown) date) Acct:[id number] unknown) (unknown) (no (unknown) (unknown) Dictated by: (units (u nknown) date) jim Be) Ana Maria on 10/26/2022 at 20:43 (unknown) (no (unknown) (unknown) FINDINGS: (units (unkn own) date) unknown) (unknown) (no (unknown) (unknown) Gallbladder: Free (units (unknown) date) of calculus or unknown) abnormal gallbladder wall thickening (unknown) (no (unknown) (unknown) IMPRESSION: No (units (unknown) date) hepatic mass unknown) lesion is seen. Slight prominence of the (unknown) (no (unknown) (unknown) INDICATIONS: (units (u nknown) date) ELEVATED LFTS; unknown) LEFT FLANK PAIN (unknown) (no (unknown) (unknown) IVC: Intrahepatic (units (unknown) date) inferior vena cava unknown) is patent. (unknown) (no (unknown) (unknown) Iliacs: Proximal (units (unknown) date) common iliac unknown) arteries are normal in caliber at less than 2.5 (unknown) (no (unknown) (unknown) [facility] (units (unknown) date) unknown) (unknown) (no (unknown) (unknown) Kidneys: Kidneys (units (unknown) date) are normal in size unknown) and echotexture. Right kidney measures (unknown) (no (unknown) (unknown) Liver: Liver is (units (unknown) date) normal in size and unknown) homogeneous in echotexture. (unknown) (no (unknown) (unknown) Loc: ED (units (unkno wn) date) unknown) (unknown) (no (unknown) (unknown) Miscellaneous: No (units (unknown) date) free abdominal unknown) fluid. (unknown) (no (unknown) (unknown) Ordering (units (unkno wn) date) Provider: unknown) Ruthy Vance D.O. (unknown) (no (unknown) (unknown) PROCEDURE: US (units ( unknown) date) ABDOMEN COMPLETE unknown) (unknown) (no (unknown) (unknown) Pancreas: (units (unkn own) date) Visualized unknown) portions of the pancreas are sonographically normal. (unknown) (no (unknown) (unknown) Patient: (units (unkno wn) date) Mona Hunter MR#: unknown) [id number] (unknown) (no (unknown) (unknown) Procedure: US (units ( unknown) date) abdomen complete unknown) (unknown) (no (unknown) (unknown) Real-time (units (unkn own) date) scanning was unknown) performed of the abdominal and retroperitoneal organs, (unknown) (no (unknown) (unknown) Signed (units (unkno wn) date) unknown) (unknown) (no (unknown) (unknown) Spleen: Spleen is (units (unknown) date) normal in size and unknown) homogeneous in echotexture. (unknown) (no (unknown) (unknown) TECHNIQUE: (units (unk nown) date) unknown) (unknown) (no (unknown) (unknown) Ultrasound Report (units (unknown) date) unknown) (unknown) (no (unknown) (unknown) bile duct (units (unkn own) date) unknown) (unknown) (no (unknown) (unknown) caliber measures (units (unknown) date) 7.5 mm. Normal is unknown) 6-7 mm or less in diameter, or 10 mm or (unknown) (no (unknown) (unknown) cm. (units (unkno wn) date) unknown) (unknown) (no (unknown) (unknown) common bile duct. (units (unknown) date) The gallbladder unknown) wall is not abnormally thickened (unknown) (no (unknown) (unknown) common bile (units (un known) date) unknown) (unknown) (no (unknown) (unknown) documentation. (units (unknown) date) unknown) (unknown) (no (unknown) (unknown) duct. This may (units (unknown) date) indicate presence unknown) of cholangitis. (unknown) (no (unknown) (unknown) ducts. The (units (unk nown) date) extrahepatic unknown) common bile duct is just above the upper limits of (unknown) (no (unknown) (unknown) intrahepatic bile (units (unknown) date) unknown) (unknown) (no (unknown) (unknown) involving the (units ( unknown) date) unknown) (unknown) (no (unknown) (unknown) left kidney (units (un known) date) measures 9.8 cm unknown) long. No hydronephrosis or nephrolithiasis. No (unknown) (no (unknown) (unknown) less (units (unkno wn) date) unknown) (unknown) (no (unknown) (unknown) masses. (units (unkno wn) date) unknown) (unknown) (no (unknown) (unknown) normal, at (units (unk nown) date) unknown) (unknown) (no (unknown) (unknown) post-cholecystect (units (unknown) date) jennifer. There appears unknown) to be a sludge or mural thickening (unknown) (no (unknown) (unknown) solid (units (unkno wn) date) unknown) (unknown) (no (unknown) (unknown) with image (units (unk nown) date) unknown) Result panel 146 (unknown) (no (unknown) (unknown) (no value) (units (unk nown) date) unknown) (unknown) (no (unknown) (unknown) 10/26/22 (units (unkno wn) date) 10/26/22 10/26/22 unknown) Range/Units (unknown) (no (unknown) (unknown) 10/26/22 16:47 (units (unknown) date) unknown) (unknown) (no (unknown) (unknown) 10/26/22 17:56 (units (unknown) date) unknown) (unknown) (no (unknown) (unknown) 10/26/22 18:00 (units (unknown) date) unknown) (unknown) (no (unknown) (unknown) 10/26/22 18:20 (units (unknown) date) unknown) (unknown) (no (unknown) (unknown) 10/26/22 18:30 (units (unknown) date) unknown) (unknown) (no (unknown) (unknown) 10/26/22 (units (unkno wn) date) unknown) (unknown) (no (unknown) (unknown) 0924 (units (unkno wn) date) unknown) (unknown) (no (unknown) (unknown) 17:50 (units (unkno wn) date) unknown) (unknown) (no (unknown) (unknown) 18:00 18:00 (units (un known) date) 18:00 unknown) (unknown) (no (unknown) (unknown) ALT 375 H (<35) (units (unknown) date) IU/L unknown) (unknown) (no (unknown) (unknown) APTT 38 H (units (unkn own) date) (26-36) SECONDS unknown) (unknown) (no (unknown) (unknown) AST 263 H (units (unkn own) date) (14-36) IU/L unknown) (unknown) (no (unknown) (unknown) Age/Sex: 62 / F (units (unknown) date) unknown) (unknown) (no (unknown) (unknown) Alkaline (units (unkno wn) date) Phosphatase 424 H unknown) (38-126) U/L (unknown) (no (unknown) (unknown) Allergies (units (unkn own) date) unknown) (unknown) (no (unknown) (unknown) Allergy/AdvReac (units (unknown) date) Type Severity unknown) Reaction Status Date / Time (unknown) (no (unknown) (unknown) Antibiotics) (units (u nknown) date) Skin unknown) (unknown) (no (unknown) (unknown) Aspirin (Aspirin (units (unknown) date) 81 Mg Chew Tab) unknown) 324 mg PO NOW ONE (unknown) (no (unknown) (unknown) BUN 23 H (7-17) (units (unknown) date) mg/dL unknown) (unknown) (no (unknown) (unknown) BUN/Creatinine (units (unknown) date) Ratio 13.9 (6-22) unknown) (unknown) (no (unknown) (unknown) Baso # (Auto) (units ( unknown) date) 100 (0-100) /uL unknown) (unknown) (no (unknown) (unknown) Baso % (Auto) (units ( unknown) date) 0.9 (0-2) % unknown) (unknown) (no (unknown) (unknown) Bedside Urine (units ( unknown) date) Bilirubin - unknown) Negative (unknown) (no (unknown) (unknown) Bedside Urine (units ( unknown) date) Glucose Negative unknown) (unknown) (no (unknown) (unknown) Bedside Urine (units ( unknown) date) Ketone - Negative unknown) (unknown) (no (unknown) (unknown) Bedside Urine (units ( unknown) date) Leukocytes - unknown) Negative (unknown) (no (unknown) (unknown) Bedside Urine (units ( unknown) date) Nitrite - unknown) Negative (unknown) (no (unknown) (unknown) Bedside Urine (units ( unknown) date) Occult Blood +/ unknown) (unknown) (no (unknown) (unknown) Bedside Urine (units ( unknown) date) Protein - unknown) Negative (unknown) (no (unknown) (unknown) Bedside Urine (units ( unknown) date) Urobilinogen - unknown) Negative (unknown) (no (unknown) (unknown) Bedside Urine pH (units (unknown) date) 6.0 unknown) (unknown) (no (unknown) (unknown) Blood Pressure (units (unknown) date) 151/68 H 10/26/22 unknown) 17:50 (unknown) (no (unknown) (unknown) Blood Pressure (units (unknown) date) 151/68 H unknown) (unknown) (no (unknown) (unknown) CK-MB (CK-2) (units (u nknown) date) 0.73 (<2.37) unknown) ng/mL (unknown) (no (unknown) (unknown) CK-MB (CK-2) Rel (units (unknown) date) Index 0.5 L unknown) (1.5-5.0) % (unknown) (no (unknown) (unknown) COVID19 -Nasal (units (unknown) date) RAPID/Pre-Proc unknown) Stat (unknown) (no (unknown) (unknown) Calcium 9.5 (units (un known) date) (8.4-10.2) mg/dL unknown) (unknown) (no (unknown) (unknown) Carbon Dioxide (units (unknown) date) 30 (22-32) mmol/L unknown) (unknown) (no (unknown) (unknown) Chief Complaint: (units (unknown) date) Chest Pain unknown) (unknown) (no (unknown) (unknown) Chloride 101 (units (u nknown) date) (98-107) mmol/L unknown) (unknown) (no (unknown) (unknown) Complete Blood (units (unknown) date) Count AUTO DIFF unknown) Stat (unknown) (no (unknown) (unknown) Comprehensive (units ( unknown) date) Metabolic Panel unknown) Stat (unknown) (no (unknown) (unknown) Course (units (unkno wn) date) unknown) (unknown) (no (unknown) (unknown) Creatinine 1.66 (units (unknown) date) H (0.52-1.04) unknown) mg/dL (unknown) (no (unknown) (unknown) : 1960 (units (unknown) date) Acct:[id number] unknown) (unknown) (no (unknown) (unknown) Date of Service: (units (unknown) date) 10/26/22 unknown) (unknown) (no (unknown) (unknown) Departure (units (unkn own) date) unknown) (unknown) (no (unknown) (unknown) Discharge Plan (units (unknown) date) unknown) (unknown) (no (unknown) (unknown) Discontinued (units (u nknown) date) Medications unknown) (unknown) (no (unknown) (unknown) Documented By: (units (unknown) date) KEB unknown) (unknown) (no (unknown) (unknown) ED Orders (units (unkn own) date) unknown) (unknown) (no (unknown) (unknown) EKG-12 Lead Stat (units (unknown) date) unknown) (unknown) (no (unknown) (unknown) ER Physician: (units ( unknown) date) Ruthy Vance unknown) D.O. (unknown) (no (unknown) (unknown) Emergency Report (units (unknown) date) unknown) (unknown) (no (unknown) (unknown) Eos # (Auto) 200 (units (unknown) date) (0-450) /uL unknown) (unknown) (no (unknown) (unknown) Eos % (Auto) 3.1 (units (unknown) date) (2-4) % unknown) (unknown) (no (unknown) (unknown) Esterase (units (unkno wn) date) unknown) (unknown) (no (unknown) (unknown) Estimated GFR 35 (units (unknown) date) L (>60) mL/min unknown) (unknown) (no (unknown) (unknown) Exam (units (unkno wn) date) unknown) (unknown) (no (unknown) (unknown) Arcenio Dey (units (unk nown) date) MD Madhav unknown) [Primary Care Provider] (unknown) (no (unknown) (unknown) General (units (unkno wn) date) unknown) (unknown) (no (unknown) (unknown) Glucose 95 (units (unk nown) date) (80-110) mg/dL unknown) (unknown) (no (unknown) (unknown) HPI - Chest Pain (units (unknown) date) unknown) (unknown) (no (unknown) (unknown) Hct 36.0 (36-46) (units (unknown) date) % unknown) (unknown) (no (unknown) (unknown) Hgb 11.9 L (units (unk nown) date) (12.0-16.0) g/dL unknown) (unknown) (no (unknown) (unknown) INR 1.2 (units (unkno wn) date) (0.9-1.3) unknown) (unknown) (no (unknown) (unknown) Initial Vital (units ( unknown) date) Signs unknown) (unknown) (no (unknown) (unknown) Initial Vital (units ( unknown) date) Signs: unknown) (unknown) (no (unknown) (unknown) [facility] (units (unknown) date) [address] [place] [address] unknown) [place] [address] (unknown) (no (unknown) (unknown) Lab Data (units (unkno wn) date) unknown) (unknown) (no (unknown) (unknown) Lab Results (units (un known) date) unknown) (unknown) (no (unknown) (unknown) Labs: (units (unkno wn) date) unknown) (unknown) (no (unknown) (unknown) Last Admin: (units (un known) date) 10/26/22 18:59 unknown) Dose: 324 mg (unknown) (no (unknown) (unknown) Lipase 153 (units (unk nown) date) (23-300) U/L unknown) (unknown) (no (unknown) (unknown) Lipase Stat (units (un known) date) unknown) (unknown) (no (unknown) (unknown) Lymph # (Auto) (units (unknown) date) 1900 (8672-3982) unknown) /uL (unknown) (no (unknown) (unknown) Lymph % (Auto) (units (unknown) date) 32.2 (25-40) % unknown) (unknown) (no (unknown) (unknown) MCH 29.8 (26-34) (units (unknown) date) PG unknown) (unknown) (no (unknown) (unknown) MCHC 33.1 (units (unkn own) date) (30-36) % unknown) (unknown) (no (unknown) (unknown) MCV 90.0 (units (unkno wn) date) (80-100) fL unknown) (unknown) (no (unknown) (unknown) MDM - Chest Pain (units (unknown) date) unknown) (unknown) (no (unknown) (unknown) Magnesium 2.0 (units ( unknown) date) (1.6-2.3) mg/dL unknown) (unknown) (no (unknown) (unknown) Magnesium Stat (units (unknown) date) unknown) (unknown) (no (unknown) (unknown) Mode of arrival: (units (unknown) date) Ambulatory unknown) (unknown) (no (unknown) (unknown) [place] # (Auto) (units ( unknown) date) 600 (0-900) /uL unknown) (unknown) (no (unknown) (unknown) [place] % (Auto) (units ( unknown) date) 10.2 (3-14) % unknown) (unknown) (no (unknown) (unknown) Neut # (Auto) (units ( unknown) date) 3200 ([id number]) unknown) /uL (unknown) (no (unknown) (unknown) Neut % (Auto) (units ( unknown) date) 53.6 (50-75) % unknown) (unknown) (no (unknown) (unknown) Ordered: (units (unkno wn) date) unknown) (unknown) (no (unknown) (unknown) Orders (units (unkno wn) date) unknown) (unknown) (no (unknown) (unknown) Oxygen Delivery (units (unknown) date) Method 10/26/22 unknown) 17:50 (unknown) (no (unknown) (unknown) Oxygen Delivery (units (unknown) date) Method Room Air unknown) (unknown) (no (unknown) (unknown) PT 14.3 H (units (unkn own) date) (10.1-12.7) unknown) SECONDS (unknown) (no (unknown) (unknown) Partial (units (unkno wn) date) Thromboplastin unknown) Time Stat (unknown) (no (unknown) (unknown) Patient History (units (unknown) date) unknown) (unknown) (no (unknown) (unknown) Patient: (units (unkno wn) date) Mona Hunter MR#: unknown) [id number] (unknown) (no (unknown) (unknown) Plt Count 284 (units ( unknown) date) (150-400) X103/uL unknown) (unknown) (no (unknown) (unknown) Potassium 3.7 (units ( unknown) date) (3.4-5.1) mmol/L unknown) (unknown) (no (unknown) (unknown) Prothrombin Time (units (unknown) date) INR Stat unknown) (unknown) (no (unknown) (unknown) Pulse Oximetry (units (unknown) date) 99 10/26/22 17:50 unknown) (unknown) (no (unknown) (unknown) Pulse Oximetry (units (unknown) date) 99 unknown) (unknown) (no (unknown) (unknown) Pulse Rate 86 (units ( unknown) date) 10/26/22 17:50 unknown) (unknown) (no (unknown) (unknown) Pulse Rate 86 (units ( unknown) date) unknown) (unknown) (no (unknown) (unknown) RBC 4.00 (units (unkno wn) date) (4.0-5.2) X106/uL unknown) (unknown) (no (unknown) (unknown) RDW 14.7 (units (unkno wn) date) (11.6-14.8) % unknown) (unknown) (no (unknown) (unknown) Referrals: (units (unk nown) date) unknown) (unknown) (no (unknown) (unknown) Related Data (units (u nknown) date) unknown) (unknown) (no (unknown) (unknown) Respiratory Rate (units (unknown) date) 18 10/26/22 17:50 unknown) (unknown) (no (unknown) (unknown) Respiratory Rate (units (unknown) date) 18 unknown) (unknown) (no (unknown) (unknown) Result diagrams: (units (unknown) date) unknown) (unknown) (no (unknown) (unknown) Signed By: (units (unk nown) date) unknown) (unknown) (no (unknown) (unknown) Smoking Status: (units (unknown) date) Current every day unknown) smoker (unknown) (no (unknown) (unknown) Social History (units (unknown) date) (Reviewed unknown) 03/30/22 @ 21:55 by Luzma Cooley DO) (unknown) (no (unknown) (unknown) Sodium 141 (units (unk nown) date) (137-145) mmol/L unknown) (unknown) (no (unknown) (unknown) Source: patient (units (unknown) date) unknown) (unknown) (no (unknown) (unknown) Stated (units (unkno wn) date) Complaint: Chest unknown) pain, squeezing, light headed, 'not right' (unknown) (no (unknown) (unknown) Stop: 10/26/22 (units (unknown) date) 17:57 unknown) (unknown) (no (unknown) (unknown) Substance Use (units ( unknown) date) Type: does not unknown) use (unknown) (no (unknown) (unknown) Sulfa (units (unkno wn) date) (Sulfonamide unknown) Allergy Redness of Verified 10/26/22 17:50 (unknown) (no (unknown) (unknown) Temperature 98.1 (units (unknown) date) F 10/26/22 17:50 unknown) (unknown) (no (unknown) (unknown) Temperature 98.1 (units (unknown) date) F unknown) (unknown) (no (unknown) (unknown) Time Seen by (units (u nknown) date) Provider: unknown) 10/26/22 19:14 (unknown) (no (unknown) (unknown) Total Bilirubin (units (unknown) date) 0.9 (0.2-1.3) unknown) mg/dL (unknown) (no (unknown) (unknown) Total Creatine (units (unknown) date) Kinase 143 H unknown) (30-135) U/L (unknown) (no (unknown) (unknown) Total Protein (units ( unknown) date) 7.9 (6.3-8.2) unknown) g/dL (unknown) (no (unknown) (unknown) Troponin + CK (units ( unknown) date) Cardiac Panel unknown) Stat (unknown) (no (unknown) (unknown) Troponin I < (units (u nknown) date) 0.012 unknown) (0.01-0.034) ng/mL (unknown) (no (unknown) (unknown) Urine Dip (units (unkn own) date) unknown) (unknown) (no (unknown) (unknown) Urine (units (unkno wn) date) Microscopic Stat unknown) (unknown) (no (unknown) (unknown) Urine Specific (units (unknown) date) Ophelia 1.015 unknown) (unknown) (no (unknown) (unknown) Vital Signs - 8 (units (unknown) date) hr unknown) (unknown) (no (unknown) (unknown) Vital Signs (units (un known) date) unknown) (unknown) (no (unknown) (unknown) Vital signs: (units (u nknown) date) unknown) (unknown) (no (unknown) (unknown) WBC 5.9 (units (unkno wn) date) (4.5-11.0) unknown) X103/uL (unknown) (no (unknown) (unknown) XR chest 1V Stat (units (unknown) date) unknown) (unknown) (no (unknown) (unknown) [Embedded Image (units (unknown) date) Not Available] unknown) (unknown) (no (unknown) (unknown) alcohol intake (units (unknown) date) frequency: 0-2 unknown) drinks per day (unknown) (no (unknown) (unknown) tobacco type: (units ( unknown) date) cigarettes unknown) Result panel 147 (unknown) (no (unknown) (unknown) (no value) (units (unk nown) date) unknown) (unknown) (no (unknown) (unknown) 10/26/22 10/26/22 (units (unknown) date) 10/26/22 unknown) Range/Units (unknown) (no (unknown) (unknown) 10/26/22 16:47 (units (unknown) date) unknown) (unknown) (no (unknown) (unknown) 10/26/22 17:56 (units (unknown) date) unknown) (unknown) (no (unknown) (unknown) 10/26/22 18:00 (units (unknown) date) unknown) (unknown) (no (unknown) (unknown) 10/26/22 18:20 (units (unknown) date) unknown) (unknown) (no (unknown) (unknown) 10/26/22 18:30 (units (unknown) date) unknown) (unknown) (no (unknown) (unknown) 10/26/22 19:16 (units (unknown) date) unknown) (unknown) (no (unknown) (unknown) 10/26/22 19:32 (units (unknown) date) unknown) (unknown) (no (unknown) (unknown) 10/26/22 20:00 (units (unknown) date) unknown) (unknown) (no (unknown) (unknown) 10/26/22 (units (unkno wn) date) unknown) (unknown) (no (unknown) (unknown) 0924 (units (unkno wn) date) unknown) (unknown) (no (unknown) (unknown) [address] [place] [address] (units (unknown) date) unknown) (unknown) (no (unknown) (unknown) 17:50 10/26/22 (units (unknown) date) unknown) (unknown) (no (unknown) (unknown) 18:00 18:00 18:00 (units (unknown) date) unknown) (unknown) (no (unknown) (unknown) 18:01 10/26/22 (units (unknown) date) unknown) (unknown) (no (unknown) (unknown) 18:03 10/26/22 (units (unknown) date) unknown) (unknown) (no (unknown) (unknown) 18:03 (units (unkno wn) date) unknown) (unknown) (no (unknown) (unknown) 18:30 10/26/22 (units (unknown) date) unknown) (unknown) (no (unknown) (unknown) 18:31 10/26/22 (units (unknown) date) unknown) (unknown) (no (unknown) (unknown) 18:31 (units (unkno wn) date) unknown) (unknown) (no (unknown) (unknown) 19:00 10/26/22 (units (unknown) date) unknown) (unknown) (no (unknown) (unknown) 19:00 (units (unkno wn) date) unknown) (unknown) (no (unknown) (unknown) ? (units (unkno wn) date) unknown) (unknown) (no (unknown) (unknown) ABDOMEN: Soft, (units (unknown) date) nontender. unknown) Normoactive bowel sounds all 4 quadrants. No (unknown) (no (unknown) (unknown) ALT 375 H (<35) (units (unknown) date) IU/L unknown) (unknown) (no (unknown) (unknown) APTT 38 H (26-36) (units (unknown) date) SECONDS unknown) (unknown) (no (unknown) (unknown) AST 263 H (14-36) (units (unknown) date) IU/L unknown) (unknown) (no (unknown) (unknown) Accession Number: (units (unknown) date) [id number] ?? unknown) (unknown) (no (unknown) (unknown) Acct:[id number] (units (unknown) date) unknown) (unknown) (no (unknown) (unknown) Age/Sex: 62 / F (units (unknown) date) unknown) (unknown) (no (unknown) (unknown) Alkaline (units (unkno wn) date) Phosphatase 424 H unknown) (38-126) U/L (unknown) (no (unknown) (unknown) Allergies (units (unkn own) date) unknown) (unknown) (no (unknown) (unknown) Allergy/AdvReac (units (unknown) date) Type Severity unknown) Reaction Status Date / Time (unknown) (no (unknown) (unknown) [place], [place] (units ( unknown) date) [address] unknown) (unknown) (no (unknown) (unknown) Antibiotics) Skin (units (unknown) date) unknown) (unknown) (no (unknown) (unknown) Approved by: Robert Rossunits (unknown) date) Ana Maria Arriaga on unknown) 10/26/2022 at 18:42?? (unknown) (no (unknown) (unknown) Aspirin (Aspirin (units (unknown) date) 81 Mg Chew Tab) unknown) 324 mg PO NOW ONE (unknown) (no (unknown) (unknown) Attestation: I (units (unknown) date) personally unknown) reviewed and interpreted this ECG as follows: (unknown) (no (unknown) (unknown) BUN 23 H (7-17) (units (unknown) date) mg/dL unknown) (unknown) (no (unknown) (unknown) BUN/Creatinine (units (unknown) date) Ratio 13.9 (6-22) unknown) (unknown) (no (unknown) (unknown) Baso # (Auto) 100 (units (unknown) date) (0-100) /uL unknown) (unknown) (no (unknown) (unknown) Baso % (Auto) 0.9 (units (unknown) date) (0-2) % unknown) (unknown) (no (unknown) (unknown) Bedside Urine (units ( unknown) date) Bilirubin - unknown) Negative (unknown) (no (unknown) (unknown) Bedside Urine (units ( unknown) date) Glucose Negative unknown) (unknown) (no (unknown) (unknown) Bedside Urine (units ( unknown) date) Ketone - Negative unknown) (unknown) (no (unknown) (unknown) Bedside Urine (units ( unknown) date) Leukocytes - unknown) Negative (unknown) (no (unknown) (unknown) Bedside Urine (units ( unknown) date) Nitrite - Negative unknown) (unknown) (no (unknown) (unknown) Bedside Urine (units ( unknown) date) Occult Blood +/ unknown) (unknown) (no (unknown) (unknown) Bedside Urine (units ( unknown) date) Protein - Negative unknown) (unknown) (no (unknown) (unknown) Bedside Urine (units ( unknown) date) Urobilinogen - unknown) Negative (unknown) (no (unknown) (unknown) Bedside Urine pH (units (unknown) date) 6.0 unknown) (unknown) (no (unknown) (unknown) Blood Pressure (units (unknown) date) 127/59 L unknown) (unknown) (no (unknown) (unknown) Blood Pressure (units (unknown) date) 151/68 H 10/26/22 unknown) 17:50 (unknown) (no (unknown) (unknown) Blood Pressure (units (unknown) date) 151/68 H unknown) (unknown) (no (unknown) (unknown) Blood Pressure (units (unknown) date) 164/72 H 138/62 unknown) (unknown) (no (unknown) (unknown) Bones and chest (units (unknown) date) wall:? No unknown) suspicious bony lesions.? Overlying soft tissues (unknown) (no (unknown) (unknown) CARDIOVASCULAR: (units (unknown) date) Regular rate and unknown) rhythm without murmurs, rubs or gallops. No (unknown) (no (unknown) (unknown) CK-MB (CK-2) 0.73 (units (unknown) date) (<2.37) ng/mL unknown) (unknown) (no (unknown) (unknown) CK-MB (CK-2) Rel (units (unknown) date) Index 0.5 L unknown) (1.5-5.0) % (unknown) (no (unknown) (unknown) COMPARISON:? (units (u nknown) date) [facility], unknown) CR, XR CHEST 1V, 03/30/2022, 18:39. (unknown) (no (unknown) (unknown) COVID19 -Nasal (units (unknown) date) RAPID/Pre-Proc unknown) Stat (unknown) (no (unknown) (unknown) Calcium 9.5 (units (un known) date) (8.4-10.2) mg/dL unknown) (unknown) (no (unknown) (unknown) Carbon Dioxide 30 (units (unknown) date) (22-32) mmol/L unknown) (unknown) (no (unknown) (unknown) Chest x-ray: (units (u nknown) date) unknown) (unknown) (no (unknown) (unknown) Chief Complaint: (units (unknown) date) Chest Pain unknown) (unknown) (no (unknown) (unknown) Chloride 101 (units (u nknown) date) (98-107) mmol/L unknown) (unknown) (no (unknown) (unknown) Complete Blood (units (unknown) date) Count AUTO DIFF unknown) Stat (unknown) (no (unknown) (unknown) Comprehensive (units ( unknown) date) Metabolic Panel unknown) Stat (unknown) (no (unknown) (unknown) Course (units (unkno wn) date) unknown) (unknown) (no (unknown) (unknown) Creatinine 1.66 H (units (unknown) date) (0.52-1.04) mg/dL unknown) (unknown) (no (unknown) (unknown) : 1960 (units (unknown) date) Acct:[id number] unknown) (unknown) (no (unknown) (unknown) : 1960 (units (unknown) date) unknown) (unknown) (no (unknown) (unknown) Date of Service: (units (unknown) date) 10/26/22 unknown) (unknown) (no (unknown) (unknown) Departure (units (unkn own) date) unknown) (unknown) (no (unknown) (unknown) Dictated by: Robert (units (unknown) date) Ana Maria Arriaga on unknown) 10/26/2022 at 18:40 ? ? (unknown) (no (unknown) (unknown) Discharge Plan (units (unknown) date) unknown) (unknown) (no (unknown) (unknown) Discontinued (units (u nknown) date) Medications unknown) (unknown) (no (unknown) (unknown) Documented By: (units (unknown) date) JO unknown) (unknown) (no (unknown) (unknown) ECG Data (units (unkno wn) date) unknown) (unknown) (no (unknown) (unknown) ED Orders (units (unkn own) date) unknown) (unknown) (no (unknown) (unknown) EKG-12 Lead Stat (units (unknown) date) unknown) (unknown) (no (unknown) (unknown) ER Physician: (units ( unknown) date) Ruthy Vance D.O. unknown) (unknown) (no (unknown) (unknown) EXTREMITIES: (units (u nknown) date) Normal range of unknown) motion, no clubbing or edema. Neurovascularly (unknown) (no (unknown) (unknown) Emergency Report (units (unknown) date) unknown) (unknown) (no (unknown) (unknown) Eos # (Auto) 200 (units (unknown) date) (0-450) /uL unknown) (unknown) (no (unknown) (unknown) Eos % (Auto) 3.1 (units (unknown) date) (2-4) % unknown) (unknown) (no (unknown) (unknown) Esterase (units (unkno wn) date) unknown) (unknown) (no (unknown) (unknown) Estimated GFR 35 (units (unknown) date) L (>60) mL/min unknown) (unknown) (no (unknown) (unknown) Exam Narrative: (units (unknown) date) unknown) (unknown) (no (unknown) (unknown) Exam (units (unkno wn) date) unknown) (unknown) (no (unknown) (unknown) FINDINGS:? (units (unk nown) date) unknown) (unknown) (no (unknown) (unknown) Arcenio Dey (units (unk nown) date) MD Madhav unknown) [Primary Care Provider] (unknown) (no (unknown) (unknown) GENERAL: Alert (units (unknown) date) and oriented x unknown) three, female in mild distress. (unknown) (no (unknown) (unknown) : No CVA (units (unk nown) date) tenderness unknown) (unknown) (no (unknown) (unknown) General (units (unkno wn) date) unknown) (unknown) (no (unknown) (unknown) Glucose 95 (units (unk nown) date) (80-110) mg/dL unknown) (unknown) (no (unknown) (unknown) HEENT: Head (units (un known) date) normocephalic, unknown) atraumatic, EOMI, pupils reactive, face symmetric, (unknown) (no (unknown) (unknown) HPI - Chest Pain (units (unknown) date) unknown) (unknown) (no (unknown) (unknown) HPI narrative: (units (unknown) date) unknown) (unknown) (no (unknown) (unknown) Hct 36.0 (36-46) (units (unknown) date) % unknown) (unknown) (no (unknown) (unknown) Hgb 11.9 L (units (unk nown) date) (12.0-16.0) g/dL unknown) (unknown) (no (unknown) (unknown) History of (units (unk nown) date) Present Illness unknown) (unknown) (no (unknown) (unknown) IMPRESSION:? No (units (unknown) date) acute unknown) cardiopulmonary pathology. (unknown) (no (unknown) (unknown) INDICATIONS:? (units ( unknown) date) chest pain unknown) (unknown) (no (unknown) (unknown) INR 1.2 (0.9-1.3) (units (unknown) date) unknown) (unknown) (no (unknown) (unknown) Imaging Data (units (u nknown) date) unknown) (unknown) (no (unknown) (unknown) Initial Vital (units ( unknown) date) Signs unknown) (unknown) (no (unknown) (unknown) Initial Vital (units ( unknown) date) Signs: unknown) (unknown) (no (unknown) (unknown) Interpretation: (units (unknown) date) unknown) (unknown) (no (unknown) (unknown) [facility] (units (unknown) date) [address] unknown) [place] [address] (unknown) (no (unknown) (unknown) [facility] (units (unknown) date) unknown) (unknown) (no (unknown) (unknown) JVD. No swelling (units (unknown) date) bilateral lower unknown) extremities. (unknown) (no (unknown) (unknown) Lab Data (units (unkno wn) date) unknown) (unknown) (no (unknown) (unknown) Lab Results (units (un known) date) unknown) (unknown) (no (unknown) (unknown) Labs: (units (unkno wn) date) unknown) (unknown) (no (unknown) (unknown) Last Admin: (units (un known) date) 10/26/22 18:59 unknown) Dose: 324 mg (unknown) (no (unknown) (unknown) Limitations: no (units (unknown) date) limitations unknown) (unknown) (no (unknown) (unknown) Lipase 153 (units (unk nown) date) (23-300) U/L unknown) (unknown) (no (unknown) (unknown) Lipase Stat (units (un known) date) unknown) (unknown) (no (unknown) (unknown) Loc: ED (units (unkno wn) date) unknown) (unknown) (no (unknown) (unknown) Lungs and (units (unkn own) date) pleura:? Lungs are unknown) clear.? No pleural effusions or pneumothorax.? (unknown) (no (unknown) (unknown) Lymph # (Auto) (units (unknown) date) 1900 (8939-0095) unknown) /uL (unknown) (no (unknown) (unknown) Lymph % (Auto) (units (unknown) date) 32.2 (25-40) % unknown) (unknown) (no (unknown) (unknown) MCH 29.8 (26-34) (units (unknown) date) PG unknown) (unknown) (no (unknown) (unknown) MCHC 33.1 (30-36) (units (unknown) date) % unknown) (unknown) (no (unknown) (unknown) MCV 90.0 (80-100) (units (unknown) date) fL unknown) (unknown) (no (unknown) (unknown) MDM - Chest Pain (units (unknown) date) unknown) (unknown) (no (unknown) (unknown) MDM Narrative (units ( unknown) date) unknown) (unknown) (no (unknown) (unknown) MR#: [id number] (units (unknown) date) unknown) (unknown) (no (unknown) (unknown) Magnesium 2.0 (units ( unknown) date) (1.6-2.3) mg/dL unknown) (unknown) (no (unknown) (unknown) Magnesium Stat (units (unknown) date) unknown) (unknown) (no (unknown) (unknown) Mediastinum:? (units ( unknown) date) Mediastinal unknown) contours appear normal.? Heart size is normal.? (unknown) (no (unknown) (unknown) Medical decision (units (unknown) date) making narrative: unknown) (unknown) (no (unknown) (unknown) Mode of arrival: (units (unknown) date) Ambulatory unknown) (unknown) (no (unknown) (unknown) [place] [facility] # (Auto) 600 (units (unknown) date) (0-900) /uL unknown) (unknown) (no (unknown) (unknown) [place] % (Auto) (units ( unknown) date) 10.2 (3-14) % unknown) (unknown) (no (unknown) (unknown) NECK: Supple, (units ( unknown) date) full range of unknown) motion (unknown) (no (unknown) (unknown) NEUROLOGICAL: (units ( unknown) date) Cranial nerves II unknown) through XII grossly intact. Moving all (unknown) (no (unknown) (unknown) Narrative (units (unkn own) date) unknown) (unknown) (no (unknown) (unknown) Neut # (Auto) (units ( unknown) date) 3200 (7787-2288) unknown) /uL (unknown) (no (unknown) (unknown) Neut % (Auto) (units ( unknown) date) 53.6 (50-75) % unknown) (unknown) (no (unknown) (unknown) Ordered: (units (unkno wn) date) unknown) (unknown) (no (unknown) (unknown) Ordering (units (unkno wn) date) Provider: unknown) Vignesh Garcia D.O. (unknown) (no (unknown) (unknown) Orders (units (unkno wn) date) unknown) (unknown) (no (unknown) (unknown) Oxygen Delivery (units (unknown) date) Method 10/26/22 unknown) 17:50 (unknown) (no (unknown) (unknown) Oxygen Delivery (units (unknown) date) Method Room Air unknown) (unknown) (no (unknown) (unknown) Oxygen Delivery (units (unknown) date) Method unknown) (unknown) (no (unknown) (unknown) PROCEDURE:? XR (units (unknown) date) CHEST 1V unknown) (unknown) (no (unknown) (unknown) PT 14.3 H (units (unkn own) date) (10.1-12.7) unknown) SECONDS (unknown) (no (unknown) (unknown) Partial (units (unkno wn) date) Thromboplastin unknown) Time Stat (unknown) (no (unknown) (unknown) Patient History (units (unknown) date) unknown) (unknown) (no (unknown) (unknown) Patient states (units (unknown) date) she is never had a unknown) stress test or cardiac catheterization. (unknown) (no (unknown) (unknown) Patient: (units (unkno wn) date) ElsaMona MR#: unknown) [id number] (unknown) (no (unknown) (unknown) Patient: (units (unkno wn) date) Mona Hunter unknown) (unknown) (no (unknown) (unknown) Plt Count 284 (units ( unknown) date) (150-400) X103/uL unknown) (unknown) (no (unknown) (unknown) Potassium 3.7 (units ( unknown) date) (3.4-5.1) mmol/L unknown) (unknown) (no (unknown) (unknown) Prior ECG (units (unkn own) date) tracings: unknown) available for review (unknown) (no (unknown) (unknown) Procedure: XR (units ( unknown) date) chest 1V unknown) (unknown) (no (unknown) (unknown) Prothrombin Time (units (unknown) date) INR Stat unknown) (unknown) (no (unknown) (unknown) Pulse Oximetry 96 (units (unknown) date) unknown) (unknown) (no (unknown) (unknown) Pulse Oximetry 98 (units (unknown) date) 97 unknown) (unknown) (no (unknown) (unknown) Pulse Oximetry 99 (units (unknown) date) 10/26/22 17:50 unknown) (unknown) (no (unknown) (unknown) Pulse Oximetry 99 (units (unknown) date) 99 99 unknown) (unknown) (no (unknown) (unknown) Pulse Rate 78 78 (units (unknown) date) unknown) (unknown) (no (unknown) (unknown) Pulse Rate 80 (units ( unknown) date) unknown) (unknown) (no (unknown) (unknown) Pulse Rate 86 (units ( unknown) date) 10/26/22 17:50 unknown) (unknown) (no (unknown) (unknown) Pulse Rate 86 78 (units (unknown) date) 81 unknown) (unknown) (no (unknown) (unknown) RBC 4.00 (units (unkno wn) date) (4.0-5.2) X106/uL unknown) (unknown) (no (unknown) (unknown) RDW 14.7 (units (unkno wn) date) (11.6-14.8) % unknown) (unknown) (no (unknown) (unknown) RESPIRATORY: (units (u nknown) date) Breath sounds unknown) equal bilaterally, no wheezes rales or rhonchi. (unknown) (no (unknown) (unknown) ROS Unobtainable: (units (unknown) date) All systems unknown) reviewed + are unremarkable except as noted in HPI (unknown) (no (unknown) (unknown) Radiologist's (units ( unknown) date) Impression: unknown) (unknown) (no (unknown) (unknown) Referrals: (units (unk nown) date) unknown) (unknown) (no (unknown) (unknown) Related Data (units (u nknown) date) unknown) (unknown) (no (unknown) (unknown) Respiratory Rate (units (unknown) date) 18 10/26/22 17:50 unknown) (unknown) (no (unknown) (unknown) Respiratory Rate (units (unknown) date) 18 unknown) (unknown) (no (unknown) (unknown) Respiratory Rate (units (unknown) date) 23 28 H unknown) (unknown) (no (unknown) (unknown) Respiratory Rate (units (unknown) date) 23 unknown) (unknown) (no (unknown) (unknown) Result diagrams: (units (unknown) date) unknown) (unknown) (no (unknown) (unknown) Review of Systems (units (unknown) date) unknown) (unknown) (no (unknown) (unknown) SKIN: Warm, dry, (units (unknown) date) no petechiae, no unknown) rashes or lesions. (unknown) (no (unknown) (unknown) Signed By: (units (unk nown) date) unknown) (unknown) (no (unknown) (unknown) Signed (units (unkno wn) date) unknown) (unknown) (no (unknown) (unknown) Sinus rhythm rate (units (unknown) date) of 70 9p are 138 unknown) QRS of 94 QTC 415. No acute ST elevation or (unknown) (no (unknown) (unknown) Smoking Status: (units (unknown) date) Current every day unknown) smoker (unknown) (no (unknown) (unknown) Social History (units (unknown) date) (Reviewed 10/26/22 unknown) @ 19:36 by Ruthy Vance DO) (unknown) (no (unknown) (unknown) Sodium 141 (units (unk nown) date) (137-145) mmol/L unknown) (unknown) (no (unknown) (unknown) Source: patient (units (unknown) date) unknown) (unknown) (no (unknown) (unknown) Stated Complaint: (units (unknown) date) Chest pain, unknown) squeezing, light headed, 'not right' (unknown) (no (unknown) (unknown) States she is (units ( unknown) date) allergic to sulfa unknown) tetracycline. She does smoke tobacco, denies (unknown) (no (unknown) (unknown) Stop: 10/26/22 (units (unknown) date) 17:57 unknown) (unknown) (no (unknown) (unknown) Substance Use (units ( unknown) date) Type: does not use unknown) (unknown) (no (unknown) (unknown) Sulfa (units (unkno wn) date) (Sulfonamide unknown) Allergy Redness of Verified 10/26/22 17:50 (unknown) (no (unknown) (unknown) Surgical changes (units (unknown) date) and devices:? unknown) None.? (unknown) (no (unknown) (unknown) TECHNIQUE:? One (units (unknown) date) view of the chest unknown) was acquired.? (unknown) (no (unknown) (unknown) Temperature 98.1 (units (unknown) date) F 10/26/22 17:50 unknown) (unknown) (no (unknown) (unknown) Temperature 98.1 (units (unknown) date) F unknown) (unknown) (no (unknown) (unknown) Temperature (units (un known) date) unknown) (unknown) (no (unknown) (unknown) This is a (units (unkno wn) date) 62-year-old female unknown) with history of factor 8 elevation, 3 prior strokes (unknown) (no (unknown) (unknown) This is a (units (unkn own) date) 62-year-old female unknown) with history of hypertension, diabetes, factor 8 (unknown) (no (unknown) (unknown) Time Seen by (units (u nknown) date) Provider: 10/26/22 unknown) 19:14 (unknown) (no (unknown) (unknown) Total Bilirubin (units (unknown) date) 0.9 (0.2-1.3) unknown) mg/dL (unknown) (no (unknown) (unknown) Total Creatine (units (unknown) date) Kinase 143 H unknown) (30-135) U/L (unknown) (no (unknown) (unknown) Total Protein 7.9 (units (unknown) date) (6.3-8.2) g/dL unknown) (unknown) (no (unknown) (unknown) Trop I [Troponin (units (unknown) date) I] Stat unknown) (unknown) (no (unknown) (unknown) Troponin + CK (units ( unknown) date) Cardiac Panel Stat unknown) (unknown) (no (unknown) (unknown) Troponin I < (units (u nknown) date) 0.012 (0.01-0.034) unknown) ng/mL (unknown) (no (unknown) (unknown) Friday. (units (unkno wn) date) unknown) (unknown) (no (unknown) (unknown) US abdomen (units (unk nown) date) complete Stat unknown) (unknown) (no (unknown) (unknown) US abdomen (units (unk nown) date) limited Stat unknown) (unknown) (no (unknown) (unknown) Urine Dip (units (unkn own) date) unknown) (unknown) (no (unknown) (unknown) Urine Microscopic (units (unknown) date) Stat unknown) (unknown) (no (unknown) (unknown) Urine Specific (units (unknown) date) Ophelia 1.015 unknown) (unknown) (no (unknown) (unknown) Vital Signs - 8 (units (unknown) date) hr unknown) (unknown) (no (unknown) (unknown) Vital Signs (units (un known) date) unknown) (unknown) (no (unknown) (unknown) Vital signs: (units (u nknown) date) unknown) (unknown) (no (unknown) (unknown) WBC 5.9 (units (unkno wn) date) (4.5-11.0) X103/uL unknown) (unknown) (no (unknown) (unknown) XR chest 1V Stat (units (unknown) date) unknown) (unknown) (no (unknown) (unknown) XRay Report (units (un known) date) unknown) (unknown) (no (unknown) (unknown) [Embedded Image (units (unknown) date) Not Available] unknown) (unknown) (no (unknown) (unknown) alcohol intake (units (unknown) date) frequency: 0-2 unknown) drinks per day (unknown) (no (unknown) (unknown) alcohol, denies (units (unknown) date) illicit. Primary unknown) care is Dr. Dey she has not appointment on (unknown) (no (unknown) (unknown) also notes she is (units (unknown) date) had left flank unknown) pain for the past week she states she has a (unknown) (no (unknown) (unknown) and below (units (unkn own) date) unknown) (unknown) (no (unknown) (unknown) appear (units (unkno wn) date) unknown) (unknown) (no (unknown) (unknown) been constipated. (units (unknown) date) She states in unknown) terms of surgeries she is had lithotripsies, (unknown) (no (unknown) (unknown) depression noted. (units (unknown) date) Patient has prior unknown) from 03/30/2022 with no acute changes. (unknown) (no (unknown) (unknown) describes (units (unkn own) date) intermittent unknown) rating her jaw and left arm. She felt dizzy during these (unknown) (no (unknown) (unknown) diabetes, (units (unkn own) date) hypertension unknown) dyslipidemia and prior kidney stones. 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 Lipase (unknown) (no (unknown) (unknown) episodes and felt (units (unknown) date) short of breath unknown) during episodes they resolved on their own she (unknown) (no (unknown) (unknown) extremities (units (un known) date) unknown) (unknown) (no (unknown) (unknown) guarding or (units (un known) date) rebound, rigidity, unknown) no mass (unknown) (no (unknown) (unknown) history of kidney (units (unknown) date) stones feels unknown) similar. Patient denies dysuria frequency or (unknown) (no (unknown) (unknown) in her chest. (units ( unknown) date) Patient states she unknown) has not had similar symptoms in the past. She (unknown) (no (unknown) (unknown) intact (units (unkno wn) date) unknown) (unknown) (no (unknown) (unknown) is had an (units (unkn own) date) intermittently. unknown) She is had nausea when she has a squeezing sensation (unknown) (no (unknown) (unknown) is negative and (units (unknown) date) bilirubins normal. unknown) (unknown) (no (unknown) (unknown) major changes. (units (unknown) date) Creatinine appears unknown) stable from her baseline, she does have an (unknown) (no (unknown) (unknown) moist mucous (units (u nknown) date) membranes unknown) (unknown) (no (unknown) (unknown) of left chest (units ( unknown) date) pain squeezing unknown) radiating to her jaw arm intermittent. Has (unknown) (no (unknown) (unknown) on Eliquis, CKD (units (unknown) date) stage 3, Crohn's unknown) disease, diverticulitis, diet-controlled (unknown) (no (unknown) (unknown) resolved at this (units (unknown) date) time she also unknown) notes a little bit of left flank pain. Patient (unknown) (no (unknown) (unknown) tobacco type: (units ( unknown) date) cigarettes unknown) (unknown) (no (unknown) (unknown) unremarkable.? (units (unknown) date) unknown) (unknown) (no (unknown) (unknown) ureteral stents, (units (unknown) date) x3 with unknown) a complete hysterectomy for endometriosis. (unknown) (no (unknown) (unknown) urgency she (units (un known) date) states it has been unknown) a little bit more difficult to urinate. She is (unknown) (no (unknown) (unknown) woke up from a (units (unknown) date) nap at about 1300 unknown) day had left-sided chest squeezing which he Result panel 148 (unknown) (no date) (unknown) (unknown) Negative (units (unkn own) unknown) (unknown) (no date) (unknown) (unknown) Negative (units (unkn own) unknown) Result panel 149 (unknown) (no date) (unknown) (unknown) 0-1/HPF (units (unkn own) unknown) (unknown) (no date) (unknown) (unknown) Cult Not (units (unkn own) Indicated unknown) (unknown) (no date) (unknown) (unknown) None Seen (units (unk nown) unknown) (unknown) (no date) (unknown) (unknown) None Seen (units (unk nown) unknown) (unknown) (no date) (unknown) (unknown) None Seen (units (unk nown) unknown) Result panel 150 (unknown) (no date) (unknown) (unknown) < 0.012 ng/ml (unkn own) (unknown) (no date) (unknown) (unknown) < 0.012 ng/ml (unkn own) Result panel 151 (unknown) (no (unknown) (unknown) (no value) (units (unk nown) date) unknown) (unknown) (no (unknown) (unknown) 10/26/22 10/26/22 (units (unknown) date) 10/26/22 unknown) Range/Units (unknown) (no (unknown) (unknown) 10/26/22 16:47 (units (unknown) date) unknown) (unknown) (no (unknown) (unknown) 10/26/22 17:56 (units (unknown) date) unknown) (unknown) (no (unknown) (unknown) 10/26/22 18:00 (units (unknown) date) unknown) (unknown) (no (unknown) (unknown) 10/26/22 18:20 (units (unknown) date) unknown) (unknown) (no (unknown) (unknown) 10/26/22 18:30 (units (unknown) date) unknown) (unknown) (no (unknown) (unknown) 10/26/22 19:32 (units (unknown) date) unknown) (unknown) (no (unknown) (unknown) 10/26/22 20:20 (units (unknown) date) unknown) (unknown) (no (unknown) (unknown) 10/26/22 (units (unkno wn) date) unknown) (unknown) (no (unknown) (unknown) 0924 (units (unkno wn) date) unknown) (unknown) (no (unknown) (unknown) [address] [place] [address] (units (unknown) date) unknown) (unknown) (no (unknown) (unknown) 16:47 18:00 18:00 (units (unknown) date) unknown) (unknown) (no (unknown) (unknown) 17:50 10/26/22 (units (unknown) date) unknown) (unknown) (no (unknown) (unknown) 18:00 18:30 20:20 (units (unknown) date) unknown) (unknown) (no (unknown) (unknown) 18:01 10/26/22 (units (unknown) date) unknown) (unknown) (no (unknown) (unknown) 18:03 10/26/22 (units (unknown) date) unknown) (unknown) (no (unknown) (unknown) 18:03 (units (unkno wn) date) unknown) (unknown) (no (unknown) (unknown) 18:30 10/26/22 (units (unknown) date) unknown) (unknown) (no (unknown) (unknown) 18:31 10/26/22 (units (unknown) date) unknown) (unknown) (no (unknown) (unknown) 18:31 (units (unkno wn) date) unknown) (unknown) (no (unknown) (unknown) 19:00 10/26/22 (units (unknown) date) unknown) (unknown) (no (unknown) (unknown) 19:00 (units (unkno wn) date) unknown) (unknown) (no (unknown) (unknown) 19:30 10/26/22 (units (unknown) date) unknown) (unknown) (no (unknown) (unknown) 19:30 (units (unkno wn) date) unknown) (unknown) (no (unknown) (unknown) 19:44 10/26/22 (units (unknown) date) unknown) (unknown) (no (unknown) (unknown) 19:44 (units (unkno wn) date) unknown) (unknown) (no (unknown) (unknown) 19:46 10/26/22 (units (unknown) date) unknown) (unknown) (no (unknown) (unknown) 19:49 10/26/22 (units (unknown) date) unknown) (unknown) (no (unknown) (unknown) 19:51 10/26/22 (units (unknown) date) unknown) (unknown) (no (unknown) (unknown) 20:00 10/26/22 (units (unknown) date) unknown) (unknown) (no (unknown) (unknown) 20:00 (units (unkno wn) date) unknown) (unknown) (no (unknown) (unknown) 20:30 10/26/22 (units (unknown) date) unknown) (unknown) (no (unknown) (unknown) 20:30 (units (unkno wn) date) unknown) (unknown) (no (unknown) (unknown) 21:00 10/26/22 (units (unknown) date) unknown) (unknown) (no (unknown) (unknown) 21:01 10/26/22 (units (unknown) date) unknown) (unknown) (no (unknown) (unknown) 21:01 (units (unkno wn) date) unknown) (unknown) (no (unknown) (unknown) ? (units (unkno wn) date) unknown) (unknown) (no (unknown) (unknown) ABDOMEN: Soft, (units (unknown) date) nontender. unknown) Normoactive bowel sounds all 4 quadrants. No (unknown) (no (unknown) (unknown) ALT (<35) IU/L (units (unknown) date) unknown) (unknown) (no (unknown) (unknown) ALT 375 H (<35) (units (unknown) date) IU/L unknown) (unknown) (no (unknown) (unknown) APTT (26-36) (units (u nknown) date) SECONDS unknown) (unknown) (no (unknown) (unknown) APTT 38 H (26-36) (units (unknown) date) SECONDS unknown) (unknown) (no (unknown) (unknown) AST (14-36) IU/L (units (unknown) date) unknown) (unknown) (no (unknown) (unknown) AST 263 H (14-36) (units (unknown) date) IU/L unknown) (unknown) (no (unknown) (unknown) Accession Number: (units (unknown) date) [id number] ?? unknown) (unknown) (no (unknown) (unknown) Acct:[id number] (units (unknown) date) unknown) (unknown) (no (unknown) (unknown) Age/Sex: 62 / F (units (unknown) date) unknown) (unknown) (no (unknown) (unknown) Alkaline (units (unkno wn) date) Phosphatase unknown) (38-126) U/L (unknown) (no (unknown) (unknown) Alkaline (units (unkno wn) date) Phosphatase 424 H unknown) (38-126) U/L (unknown) (no (unknown) (unknown) Allergies (units (unkn own) date) unknown) (unknown) (no (unknown) (unknown) Allergy/AdvReac (units (unknown) date) Type Severity unknown) Reaction Status Date / Time (unknown) (no (unknown) (unknown) [place], [place] (units ( unknown) date) [address] unknown) (unknown) (no (unknown) (unknown) Antibiotics) Skin (units (unknown) date) unknown) (unknown) (no (unknown) (unknown) Approved by: Robert (units (unknown) date) Ana Maria Arriaga on unknown) 10/26/2022 at 18:42?? (unknown) (no (unknown) (unknown) Aspirin (Aspirin (units (unknown) date) 81 Mg Chew Tab) unknown) 324 mg PO NOW ONE (unknown) (no (unknown) (unknown) Attestation: I (units (unknown) date) personally unknown) reviewed and interpreted this ECG as follows: (unknown) (no (unknown) (unknown) BUN (7-17) mg/dL (units (unknown) date) unknown) (unknown) (no (unknown) (unknown) BUN 23 H (7-17) (units (unknown) date) mg/dL unknown) (unknown) (no (unknown) (unknown) BUN/Creatinine (units (unknown) date) Ratio (6-22) unknown) (unknown) (no (unknown) (unknown) BUN/Creatinine (units (unknown) date) Ratio 13.9 (6-22) unknown) (unknown) (no (unknown) (unknown) Baso # (Auto) (units ( unknown) date) (0-100) /uL unknown) (unknown) (no (unknown) (unknown) Baso # (Auto) 100 (units (unknown) date) (0-100) /uL unknown) (unknown) (no (unknown) (unknown) Baso % (Auto) (units ( unknown) date) (0-2) % unknown) (unknown) (no (unknown) (unknown) Baso % (Auto) 0.9 (units (unknown) date) (0-2) % unknown) (unknown) (no (unknown) (unknown) Bedside Urine (units ( unknown) date) Bilirubin - unknown) Negative (unknown) (no (unknown) (unknown) Bedside Urine (units ( unknown) date) Glucose Negative unknown) (unknown) (no (unknown) (unknown) Bedside Urine (units ( unknown) date) Ketone - Negative unknown) (unknown) (no (unknown) (unknown) Bedside Urine (units ( unknown) date) Leukocytes - unknown) Negative (unknown) (no (unknown) (unknown) Bedside Urine (units ( unknown) date) Nitrite - Negative unknown) (unknown) (no (unknown) (unknown) Bedside Urine (units ( unknown) date) Occult Blood +/ unknown) (unknown) (no (unknown) (unknown) Bedside Urine (units ( unknown) date) Protein - Negative unknown) (unknown) (no (unknown) (unknown) Bedside Urine (units ( unknown) date) Urobilinogen - unknown) Negative (unknown) (no (unknown) (unknown) Bedside Urine pH (units (unknown) date) 6.0 unknown) (unknown) (no (unknown) (unknown) Blood Pressure (units (unknown) date) 121/62 unknown) (unknown) (no (unknown) (unknown) Blood Pressure (units (unknown) date) 127/59 L unknown) (unknown) (no (unknown) (unknown) Blood Pressure (units (unknown) date) 137/97 H unknown) (unknown) (no (unknown) (unknown) Blood Pressure (units (unknown) date) 143/65 H 144/67 H unknown) (unknown) (no (unknown) (unknown) Blood Pressure (units (unknown) date) 151/68 H 10/26/22 unknown) 17:50 (unknown) (no (unknown) (unknown) Blood Pressure (units (unknown) date) 151/68 H unknown) (unknown) (no (unknown) (unknown) Blood Pressure (units (unknown) date) 152/74 H 143/65 H unknown) 162/78 H (unknown) (no (unknown) (unknown) Blood Pressure (units (unknown) date) 152/74 H unknown) (unknown) (no (unknown) (unknown) Blood Pressure (units (unknown) date) 164/72 H 138/62 unknown) (unknown) (no (unknown) (unknown) Bones and chest (units (unknown) date) wall:? No unknown) suspicious bony lesions.? Overlying soft tissues (unknown) (no (unknown) (unknown) CARDIOVASCULAR: (units (unknown) date) Regular rate and unknown) rhythm without murmurs, rubs or gallops. No (unknown) (no (unknown) (unknown) CK-MB (CK-2) (units (u nknown) date) (<2.37) ng/mL unknown) (unknown) (no (unknown) (unknown) CK-MB (CK-2) 0.73 (units (unknown) date) (<2.37) ng/mL unknown) (unknown) (no (unknown) (unknown) CK-MB (CK-2) Rel (units (unknown) date) Index (1.5-5.0) % unknown) (unknown) (no (unknown) (unknown) CK-MB (CK-2) Rel (units (unknown) date) Index 0.5 L unknown) (1.5-5.0) % (unknown) (no (unknown) (unknown) COMPARISON:? (units (u nknown) date) [facility], unknown) CR, XR CHEST 1V, 03/30/2022, 18:39. (unknown) (no (unknown) (unknown) COVID19 -Nasal (units (unknown) date) RAPID/Pre-Proc unknown) Stat (unknown) (no (unknown) (unknown) Calcium (units (unkno wn) date) (8.4-10.2) mg/dL unknown) (unknown) (no (unknown) (unknown) Calcium 9.5 (units (un known) date) (8.4-10.2) mg/dL unknown) (unknown) (no (unknown) (unknown) Carbon Dioxide (units (unknown) date) (22-32) mmol/L unknown) (unknown) (no (unknown) (unknown) Carbon Dioxide 30 (units (unknown) date) (22-32) mmol/L unknown) (unknown) (no (unknown) (unknown) Chest x-ray: (units (u nknown) date) unknown) (unknown) (no (unknown) (unknown) Chief Complaint: (units (unknown) date) Chest Pain unknown) (unknown) (no (unknown) (unknown) Chloride (98-107) (units (unknown) date) mmol/L unknown) (unknown) (no (unknown) (unknown) Chloride 101 (units (u nknown) date) (98-107) mmol/L unknown) (unknown) (no (unknown) (unknown) Complete Blood (units (unknown) date) Count AUTO DIFF unknown) Stat (unknown) (no (unknown) (unknown) Comprehensive (units ( unknown) date) Metabolic Panel unknown) Stat (unknown) (no (unknown) (unknown) Course (units (unkno wn) date) unknown) (unknown) (no (unknown) (unknown) Creatinine (units (unk nown) date) (0.52-1.04) mg/dL unknown) (unknown) (no (unknown) (unknown) Creatinine 1.66 H (units (unknown) date) (0.52-1.04) mg/dL unknown) (unknown) (no (unknown) (unknown) : 1960 (units (unknown) date) Acct:[id number] unknown) (unknown) (no (unknown) (unknown) : 1960 (units (unknown) date) unknown) (unknown) (no (unknown) (unknown) Date of Service: (units (unknown) date) 10/26/22 unknown) (unknown) (no (unknown) (unknown) Departure (units (unkn own) date) unknown) (unknown) (no (unknown) (unknown) Dictated by: Robert (units (unknown) date) Ana Maria Arriaga on unknown) 10/26/2022 at 18:40 ? ? (unknown) (no (unknown) (unknown) Discharge Plan (units (unknown) date) unknown) (unknown) (no (unknown) (unknown) Discontinued (units (u nknown) date) Medications unknown) (unknown) (no (unknown) (unknown) Documented By: BS (units (unknown) date) unknown) (unknown) (no (unknown) (unknown) Documented By: (units (unknown) date) [facility] unknown) (unknown) (no (unknown) (unknown) ECG Data (units (unkno wn) date) unknown) (unknown) (no (unknown) (unknown) ED Orders (units (unkn own) date) unknown) (unknown) (no (unknown) (unknown) EKG-12 Lead Stat (units (unknown) date) unknown) (unknown) (no (unknown) (unknown) ER Physician: (units ( unknown) date) Ruthy Vance D.O. unknown) (unknown) (no (unknown) (unknown) EXTREMITIES: (units (u nknown) date) Normal range of unknown) motion, no clubbing or edema. Neurovascularly (unknown) (no (unknown) (unknown) Emergency Report (units (unknown) date) unknown) (unknown) (no (unknown) (unknown) Eos # (Auto) (units (u nknown) date) (0-450) /uL unknown) (unknown) (no (unknown) (unknown) Eos # (Auto) 200 (units (unknown) date) (0-450) /uL unknown) (unknown) (no (unknown) (unknown) Eos % (Auto) (units (u nknown) date) (2-4) % unknown) (unknown) (no (unknown) (unknown) Eos % (Auto) 3.1 (units (unknown) date) (2-4) % unknown) (unknown) (no (unknown) (unknown) Esterase (units (unkno wn) date) unknown) (unknown) (no (unknown) (unknown) Estimated GFR (units ( unknown) date) (>60) mL/min unknown) (unknown) (no (unknown) (unknown) Estimated GFR 35 (units (unknown) date) L (>60) mL/min unknown) (unknown) (no (unknown) (unknown) Exam Narrative: (units (unknown) date) unknown) (unknown) (no (unknown) (unknown) Exam (units (unkno wn) date) unknown) (unknown) (no (unknown) (unknown) FINDINGS:? (units (unk nown) date) unknown) (unknown) (no (unknown) (unknown) Arcenio Dey (units (unk nown) date) MD Madhav unknown) [Primary Care Provider] (unknown) (no (unknown) (unknown) GENERAL: Alert (units (unknown) date) and oriented x unknown) three, female in mild distress. (unknown) (no (unknown) (unknown) : No CVA (units (unk nown) date) tenderness unknown) (unknown) (no (unknown) (unknown) General (units (unkno wn) date) unknown) (unknown) (no (unknown) (unknown) Glucose (80-110) (units (unknown) date) mg/dL unknown) (unknown) (no (unknown) (unknown) Glucose 95 (units (unk nown) date) (80-110) mg/dL unknown) (unknown) (no (unknown) (unknown) HEENT: Head (units (un known) date) normocephalic, unknown) atraumatic, EOMI, pupils reactive, face symmetric, (unknown) (no (unknown) (unknown) HPI - Chest Pain (units (unknown) date) unknown) (unknown) (no (unknown) (unknown) HPI narrative: (units (unknown) date) unknown) (unknown) (no (unknown) (unknown) Hct (36-46) % (units ( unknown) date) unknown) (unknown) (no (unknown) (unknown) Hct 36.0 (36-46) (units (unknown) date) % unknown) (unknown) (no (unknown) (unknown) Hgb (12.0-16.0) (units (unknown) date) g/dL unknown) (unknown) (no (unknown) (unknown) Hgb 11.9 L (units (unk nown) date) (12.0-16.0) g/dL unknown) (unknown) (no (unknown) (unknown) History of (units (unk nown) date) Present Illness unknown) (unknown) (no (unknown) (unknown) IMPRESSION:? No (units (unknown) date) acute unknown) cardiopulmonary pathology. (unknown) (no (unknown) (unknown) INDICATIONS:? (units ( unknown) date) chest pain unknown) (unknown) (no (unknown) (unknown) INR (0.9-1.3) (units ( unknown) date) unknown) (unknown) (no (unknown) (unknown) INR 1.2 (0.9-1.3) (units (unknown) date) unknown) (unknown) (no (unknown) (unknown) Imaging Data (units (u nknown) date) unknown) (unknown) (no (unknown) (unknown) Initial Vital (units ( unknown) date) Signs unknown) (unknown) (no (unknown) (unknown) Initial Vital (units ( unknown) date) Signs: unknown) (unknown) (no (unknown) (unknown) Interpretation: (units (unknown) date) unknown) (unknown) (no (unknown) (unknown) [facility] (units (unknown) date) [address] unknown) [place] [address] (unknown) (no (unknown) (unknown) [facility] (units (unknown) date) unknown) (unknown) (no (unknown) (unknown) JVD. No swelling (units (unknown) date) bilateral lower unknown) extremities. (unknown) (no (unknown) (unknown) Lab Data (units (unkno wn) date) unknown) (unknown) (no (unknown) (unknown) Lab Results (units (un known) date) unknown) (unknown) (no (unknown) (unknown) Labs: (units (unkno wn) date) unknown) (unknown) (no (unknown) (unknown) Last Admin: (units (un known) date) 10/26/22 18:59 unknown) Dose: 324 mg (unknown) (no (unknown) (unknown) Last Admin: (units (un known) date) 10/26/22 19:46 unknown) Dose: 0.4 mg (unknown) (no (unknown) (unknown) Limitations: no (units (unknown) date) limitations unknown) (unknown) (no (unknown) (unknown) Lipase (23-300) (units (unknown) date) U/L unknown) (unknown) (no (unknown) (unknown) Lipase 153 (units (unk nown) date) (23-300) U/L unknown) (unknown) (no (unknown) (unknown) Lipase Stat (units (un known) date) unknown) (unknown) (no (unknown) (unknown) Loc: ED (units (unkno wn) date) unknown) (unknown) (no (unknown) (unknown) Lungs and (units (unkn own) date) pleura:? Lungs are unknown) clear.? No pleural effusions or pneumothorax.? (unknown) (no (unknown) (unknown) Lymph # (Auto) (units (unknown) date) ([phone]) /uL unknown) (unknown) (no (unknown) (unknown) Lymph # (Auto) (units (unknown) date) 1900 ([phone]) unknown) /uL (unknown) (no (unknown) (unknown) Lymph % (Auto) (units (unknown) date) (25-40) % unknown) (unknown) (no (unknown) (unknown) Lymph % (Auto) (units (unknown) date) 32.2 (25-40) % unknown) (unknown) (no (unknown) (unknown) MCH (26-34) PG (units (unknown) date) unknown) (unknown) (no (unknown) (unknown) MCH 29.8 (26-34) (units (unknown) date) PG unknown) (unknown) (no (unknown) (unknown) MCHC (30-36) % (units (unknown) date) unknown) (unknown) (no (unknown) (unknown) MCHC 33.1 (30-36) (units (unknown) date) % unknown) (unknown) (no (unknown) (unknown) MCV (80-100) fL (units (unknown) date) unknown) (unknown) (no (unknown) (unknown) MCV 90.0 (80-100) (units (unknown) date) fL unknown) (unknown) (no (unknown) (unknown) MDM - Chest Pain (units (unknown) date) unknown) (unknown) (no (unknown) (unknown) MDM Narrative (units ( unknown) date) unknown) (unknown) (no (unknown) (unknown) MR#: [id number] (units (unknown) date) unknown) (unknown) (no (unknown) (unknown) Magnesium (units (unkn own) date) (1.6-2.3) mg/dL unknown) (unknown) (no (unknown) (unknown) Magnesium 2.0 (units ( unknown) date) (1.6-2.3) mg/dL unknown) (unknown) (no (unknown) (unknown) Magnesium Stat (units (unknown) date) unknown) (unknown) (no (unknown) (unknown) Mediastinum:? (units ( unknown) date) Mediastinal unknown) contours appear normal.? Heart size is normal.? (unknown) (no (unknown) (unknown) Medical decision (units (unknown) date) making narrative: unknown) (unknown) (no (unknown) (unknown) Mode of arrival: (units (unknown) date) Ambulatory unknown) (unknown) (no (unknown) (unknown) [facility] # (Auto) (units ( unknown) date) (0-900) /uL unknown) (unknown) (no (unknown) (unknown) [facility] # (Auto) 600 (units (unknown) date) (0-900) /uL unknown) (unknown) (no (unknown) (unknown) [facility] % (Auto) (units ( unknown) date) (3-14) % unknown) (unknown) (no (unknown) (unknown) [facility] % (Auto) (units ( unknown) date) 10.2 (3-14) % unknown) (unknown) (no (unknown) (unknown) NECK: Supple, (units ( unknown) date) full range of unknown) motion (unknown) (no (unknown) (unknown) NEUROLOGICAL: (units ( unknown) date) Cranial nerves II unknown) through XII grossly intact. Moving all (unknown) (no (unknown) (unknown) Narrative (units (unkn own) date) unknown) (unknown) (no (unknown) (unknown) Neut # (Auto) (units ( unknown) date) (7644-0836) /uL unknown) (unknown) (no (unknown) (unknown) Neut # (Auto) (units ( unknown) date) 3200 (2614-5954) unknown) /uL (unknown) (no (unknown) (unknown) Neut % (Auto) (units ( unknown) date) (50-75) % unknown) (unknown) (no (unknown) (unknown) Neut % (Auto) (units ( unknown) date) 53.6 (50-75) % unknown) (unknown) (no (unknown) (unknown) Nitroglycerin (units ( unknown) date) (Nitroglycerin 0.4 unknown) Mg Sl Tab) 0.4 mg SL [id number] PRN (unknown) (no (unknown) (unknown) Ordered: (units (unkno wn) date) unknown) (unknown) (no (unknown) (unknown) Ordering (units (unkno wn) date) Provider: unknown) Vignesh Garcia D.O. (unknown) (no (unknown) (unknown) Orders (units (unkno wn) date) unknown) (unknown) (no (unknown) (unknown) Oxygen Delivery (units (unknown) date) Method 10/26/22 unknown) 17:50 (unknown) (no (unknown) (unknown) Oxygen Delivery (units (unknown) date) Method Room Air unknown) (unknown) (no (unknown) (unknown) Oxygen Delivery (units (unknown) date) Method unknown) (unknown) (no (unknown) (unknown) PRN Reason: Chest (units (unknown) date) Pain unknown) (unknown) (no (unknown) (unknown) PROCEDURE:? XR (units (unknown) date) CHEST 1V unknown) (unknown) (no (unknown) (unknown) PT (10.1-12.7) (units (unknown) date) SECONDS unknown) (unknown) (no (unknown) (unknown) PT 14.3 H (units (unkn own) date) (10.1-12.7) unknown) SECONDS (unknown) (no (unknown) (unknown) Partial (units (unkno wn) date) Thromboplastin unknown) Time Stat (unknown) (no (unknown) (unknown) Patient History (units (unknown) date) unknown) (unknown) (no (unknown) (unknown) Patient states (units (unknown) date) she is never had a unknown) stress test or cardiac catheterization. (unknown) (no (unknown) (unknown) Patient: (units (unkno wn) date) Mona Hunter MR#: unknown) [id number] (unknown) (no (unknown) (unknown) Patient: (units (unkno wn) date) Mona Hunter unknown) (unknown) (no (unknown) (unknown) Plt Count (units (unkn own) date) (150-400) X103/uL unknown) (unknown) (no (unknown) (unknown) Plt Count 284 (units ( unknown) date) (150-400) X103/uL unknown) (unknown) (no (unknown) (unknown) Potassium (units (unkn own) date) (3.4-5.1) mmol/L unknown) (unknown) (no (unknown) (unknown) Potassium 3.7 (units ( unknown) date) (3.4-5.1) mmol/L unknown) (unknown) (no (unknown) (unknown) Prior ECG (units (unkn own) date) tracings: unknown) available for review (unknown) (no (unknown) (unknown) Procedure: XR (units ( unknown) date) chest 1V unknown) (unknown) (no (unknown) (unknown) Prothrombin Time (units (unknown) date) INR Stat unknown) (unknown) (no (unknown) (unknown) Pulse Oximetry 96 (units (unknown) date) unknown) (unknown) (no (unknown) (unknown) Pulse Oximetry 97 (units (unknown) date) 96 unknown) (unknown) (no (unknown) (unknown) Pulse Oximetry 97 (units (unknown) date) unknown) (unknown) (no (unknown) (unknown) Pulse Oximetry 98 (units (unknown) date) 97 unknown) (unknown) (no (unknown) (unknown) Pulse Oximetry 98 (units (unknown) date) 98 unknown) (unknown) (no (unknown) (unknown) Pulse Oximetry 99 (units (unknown) date) 10/26/22 17:50 unknown) (unknown) (no (unknown) (unknown) Pulse Oximetry 99 (units (unknown) date) 99 99 unknown) (unknown) (no (unknown) (unknown) Pulse Oximetry (units (unknown) date) unknown) (unknown) (no (unknown) (unknown) Pulse Rate 74 72 (units (unknown) date) unknown) (unknown) (no (unknown) (unknown) Pulse Rate 78 78 (units (unknown) date) unknown) (unknown) (no (unknown) (unknown) Pulse Rate 78 80 (units (unknown) date) unknown) (unknown) (no (unknown) (unknown) Pulse Rate 78 (units ( unknown) date) unknown) (unknown) (no (unknown) (unknown) Pulse Rate 79 75 (units (unknown) date) unknown) (unknown) (no (unknown) (unknown) Pulse Rate 80 80 (units (unknown) date) unknown) (unknown) (no (unknown) (unknown) Pulse Rate 80 (units ( unknown) date) unknown) (unknown) (no (unknown) (unknown) Pulse Rate 86 (units ( unknown) date) 10/26/22 17:50 unknown) (unknown) (no (unknown) (unknown) Pulse Rate 86 78 (units (unknown) date) 81 unknown) (unknown) (no (unknown) (unknown) RBC (4.0-5.2) (units ( unknown) date) X106/uL unknown) (unknown) (no (unknown) (unknown) RBC 4.00 (units (unkno wn) date) (4.0-5.2) X106/uL unknown) (unknown) (no (unknown) (unknown) RDW (11.6-14.8) % (units (unknown) date) unknown) (unknown) (no (unknown) (unknown) RDW 14.7 (units (unkno wn) date) (11.6-14.8) % unknown) (unknown) (no (unknown) (unknown) RESPIRATORY: (units (u nknown) date) Breath sounds unknown) equal bilaterally, no wheezes rales or rhonchi. (unknown) (no (unknown) (unknown) ROS Unobtainable: (units (unknown) date) All systems unknown) reviewed + are unremarkable except as noted in HPI (unknown) (no (unknown) (unknown) Radiologist's (units ( unknown) date) Impression: unknown) (unknown) (no (unknown) (unknown) Referrals: (units (unk nown) date) unknown) (unknown) (no (unknown) (unknown) Related Data (units (u nknown) date) unknown) (unknown) (no (unknown) (unknown) Respiratory Rate (units (unknown) date) 18 10/26/22 17:50 unknown) (unknown) (no (unknown) (unknown) Respiratory Rate (units (unknown) date) 18 unknown) (unknown) (no (unknown) (unknown) Respiratory Rate (units (unknown) date) 19 24 unknown) (unknown) (no (unknown) (unknown) Respiratory Rate (units (unknown) date) 20 19 unknown) (unknown) (no (unknown) (unknown) Respiratory Rate (units (unknown) date) 21 35 H unknown) (unknown) (no (unknown) (unknown) Respiratory Rate (units (unknown) date) 23 28 H unknown) (unknown) (no (unknown) (unknown) Respiratory Rate (units (unknown) date) 23 unknown) (unknown) (no (unknown) (unknown) Respiratory Rate (units (unknown) date) unknown) (unknown) (no (unknown) (unknown) Result diagrams: (units (unknown) date) unknown) (unknown) (no (unknown) (unknown) Review of Systems (units (unknown) date) unknown) (unknown) (no (unknown) (unknown) SARS-CoV-2 (PCR) (units (unknown) date) (Negative) unknown) (unknown) (no (unknown) (unknown) SARS-CoV-2 (PCR) (units (unknown) date) Negative unknown) (Negative) (unknown) (no (unknown) (unknown) SKIN: Warm, dry, (units (unknown) date) no petechiae, no unknown) rashes or lesions. (unknown) (no (unknown) (unknown) Signed By: (units (unk nown) date) unknown) (unknown) (no (unknown) (unknown) Signed (units (unkno wn) date) unknown) (unknown) (no (unknown) (unknown) Sinus rhythm rate (units (unknown) date) of 70 9p are 138 unknown) QRS of 94 QTC 415. No acute ST elevation or (unknown) (no (unknown) (unknown) Smoking Status: (units (unknown) date) Current every day unknown) smoker (unknown) (no (unknown) (unknown) Social History (units (unknown) date) (Reviewed 10/26/22 unknown) @ 19:36 by Ruthy Vance DO) (unknown) (no (unknown) (unknown) Sodium (137-145) (units (unknown) date) mmol/L unknown) (unknown) (no (unknown) (unknown) Sodium 141 (units (unk nown) date) (137-145) mmol/L unknown) (unknown) (no (unknown) (unknown) Source: patient (units (unknown) date) unknown) (unknown) (no (unknown) (unknown) Stated Complaint: (units (unknown) date) Chest pain, unknown) squeezing, light headed, 'not right' (unknown) (no (unknown) (unknown) States she is (units ( unknown) date) allergic to sulfa unknown) tetracycline. She does smoke tobacco, denies (unknown) (no (unknown) (unknown) Stop: 10/26/22 (units (unknown) date) 17:57 unknown) (unknown) (no (unknown) (unknown) Substance Use (units ( unknown) date) Type: does not use unknown) (unknown) (no (unknown) (unknown) Sulfa (units (unkno wn) date) (Sulfonamide unknown) Allergy Redness of Verified 10/26/22 17:50 (unknown) (no (unknown) (unknown) Surgical changes (units (unknown) date) and devices:? unknown) None.? (unknown) (no (unknown) (unknown) TECHNIQUE:? One (units (unknown) date) view of the chest unknown) was acquired.? (unknown) (no (unknown) (unknown) Temperature 98.1 (units (unknown) date) F 10/26/22 17:50 unknown) (unknown) (no (unknown) (unknown) Temperature 98.1 (units (unknown) date) F unknown) (unknown) (no (unknown) (unknown) Temperature (units (un known) date) unknown) (unknown) (no (unknown) (unknown) This is a (units (unkno wn) date) 62-year-old female unknown) with history of factor 8 elevation, 3 prior strokes (unknown) (no (unknown) (unknown) This is a (units (unkn own) date) 62-year-old female unknown) with history of hypertension, diabetes, factor 8 (unknown) (no (unknown) (unknown) Time Seen by (units (u nknown) date) Provider: 10/26/22 unknown) 19:14 (unknown) (no (unknown) (unknown) Total Bilirubin (units (unknown) date) (0.2-1.3) mg/dL unknown) (unknown) (no (unknown) (unknown) Total Bilirubin (units (unknown) date) 0.9 (0.2-1.3) unknown) mg/dL (unknown) (no (unknown) (unknown) Total Creatine (units (unknown) date) Kinase (30-135) unknown) U/L (unknown) (no (unknown) (unknown) Total Creatine (units (unknown) date) Kinase 143 H unknown) (30-135) U/L (unknown) (no (unknown) (unknown) Total Protein (units ( unknown) date) (6.3-8.2) g/dL unknown) (unknown) (no (unknown) (unknown) Total Protein 7.9 (units (unknown) date) (6.3-8.2) g/dL unknown) (unknown) (no (unknown) (unknown) Trop I [Troponin (units (unknown) date) I] Stat unknown) (unknown) (no (unknown) (unknown) Troponin + CK (units ( unknown) date) Cardiac Panel Stat unknown) (unknown) (no (unknown) (unknown) Troponin I < (units (u nknown) date) 0.012 < 0.012 unknown) (0.01-0.034) ng/mL (unknown) (no (unknown) (unknown) Troponin I (units (unk nown) date) (0.01-0.034) ng/mL unknown) (unknown) (no (unknown) (unknown) Friday. (units (unkno wn) date) unknown) (unknown) (no (unknown) (unknown) US abdomen (units (unk nown) date) complete Stat unknown) (unknown) (no (unknown) (unknown) Ur Culture (units (unk nown) date) Indicated? Cult unknown) not indicated (unknown) (no (unknown) (unknown) Ur Culture (units (unk nown) date) Indicated? unknown) (unknown) (no (unknown) (unknown) Urine Bacteria (units (unknown) date) (None) unknown) (unknown) (no (unknown) (unknown) Urine Bacteria (units (unknown) date) None seen (None) unknown) (unknown) (no (unknown) (unknown) Urine Dip (units (unkn own) date) unknown) (unknown) (no (unknown) (unknown) Urine Microscopic (units (unknown) date) Stat unknown) (unknown) (no (unknown) (unknown) Urine RBC (units (unkn own) date) (0-5/HPF) unknown) (unknown) (no (unknown) (unknown) Urine RBC None (units (unknown) date) seen (0-5/HPF) unknown) (unknown) (no (unknown) (unknown) Urine Specific (units (unknown) date) Ophelia 1.015 unknown) (unknown) (no (unknown) (unknown) Urine WBC (units (unkn own) date) (0-5/HPF) unknown) (unknown) (no (unknown) (unknown) Urine WBC 0-1/hpf (units (unknown) date) (0-5/HPF) unknown) (unknown) (no (unknown) (unknown) Vital Signs - 8 (units (unknown) date) hr unknown) (unknown) (no (unknown) (unknown) Vital Signs (units (un known) date) unknown) (unknown) (no (unknown) (unknown) Vital signs: (units (u nknown) date) unknown) (unknown) (no (unknown) (unknown) WBC (4.5-11.0) (units (unknown) date) X103/uL unknown) (unknown) (no (unknown) (unknown) WBC 5.9 (units (unkno wn) date) (4.5-11.0) X103/uL unknown) (unknown) (no (unknown) (unknown) XR chest 1V Stat (units (unknown) date) unknown) (unknown) (no (unknown) (unknown) XRay Report (units (un known) date) unknown) (unknown) (no (unknown) (unknown) [Embedded Image (units (unknown) date) Not Available] unknown) (unknown) (no (unknown) (unknown) alcohol intake (units (unknown) date) frequency: 0-2 unknown) drinks per day (unknown) (no (unknown) (unknown) alcohol, denies (units (unknown) date) illicit. Primary unknown) care is Dr. Dey she has not appointment on (unknown) (no (unknown) (unknown) also notes she is (units (unknown) date) had left flank unknown) pain for the past week she states she has a (unknown) (no (unknown) (unknown) and below (units (unkn own) date) unknown) (unknown) (no (unknown) (unknown) appear (units (unkno wn) date) unknown) (unknown) (no (unknown) (unknown) been constipated. (units (unknown) date) She states in unknown) terms of surgeries she is had lithotripsies, (unknown) (no (unknown) (unknown) depression noted. (units (unknown) date) Patient has prior unknown) from 03/30/2022 with no acute changes. (unknown) (no (unknown) (unknown) describes (units (unkn own) date) intermittent unknown) rating her jaw and left arm. She felt dizzy during these (unknown) (no (unknown) (unknown) diabetes, (units (unkn own) date) hypertension unknown) dyslipidemia and prior kidney stones. 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 Lipase (unknown) (no (unknown) (unknown) episodes and felt (units (unknown) date) short of breath unknown) during episodes they resolved on their own she (unknown) (no (unknown) (unknown) extremities (units (un known) date) unknown) (unknown) (no (unknown) (unknown) guarding or (units (un known) date) rebound, rigidity, unknown) no mass (unknown) (no (unknown) (unknown) history of kidney (units (unknown) date) stones feels unknown) similar. Patient denies dysuria frequency or (unknown) (no (unknown) (unknown) in her chest. (units ( unknown) date) Patient states she unknown) has not had similar symptoms in the past. She (unknown) (no (unknown) (unknown) intact (units (unkno wn) date) unknown) (unknown) (no (unknown) (unknown) is had an (units (unkn own) date) intermittently. unknown) She is had nausea when she has a squeezing sensation (unknown) (no (unknown) (unknown) is negative and (units (unknown) date) bilirubins normal. unknown) (unknown) (no (unknown) (unknown) major changes. (units (unknown) date) Creatinine appears unknown) stable from her baseline, she does have an (unknown) (no (unknown) (unknown) moist mucous (units (u nknown) date) membranes unknown) (unknown) (no (unknown) (unknown) of left chest (units ( unknown) date) pain squeezing unknown) radiating to her jaw arm intermittent. Has (unknown) (no (unknown) (unknown) on Eliquis, CKD (units (unknown) date) stage 3, Crohn's unknown) disease, diverticulitis, diet-controlled (unknown) (no (unknown) (unknown) resolved at this (units (unknown) date) time she also unknown) notes a little bit of left flank pain. Patient (unknown) (no (unknown) (unknown) tobacco type: (units ( unknown) date) cigarettes unknown) (unknown) (no (unknown) (unknown) unremarkable.? (units (unknown) date) unknown) (unknown) (no (unknown) (unknown) ureteral stents, (units (unknown) date) x3 with unknown) a complete hysterectomy for endometriosis. (unknown) (no (unknown) (unknown) urgency she (units (un known) date) states it has been unknown) a little bit more difficult to urinate. She is (unknown) (no (unknown) (unknown) woke up from a (units (unknown) date) nap at about 1300 unknown) day had left-sided chest squeezing which he Result panel 152 (unknown) (no (unknown) (unknown) (no value) (units (unk nown) date) unknown) (unknown) (no (unknown) (unknown) 10/26/22 10/26/22 (units (unknown) date) 10/26/22 unknown) Range/Units (unknown) (no (unknown) (unknown) 10/26/22 16:47 (units (unknown) date) unknown) (unknown) (no (unknown) (unknown) 10/26/22 17:56 (units (unknown) date) unknown) (unknown) (no (unknown) (unknown) 10/26/22 18:00 (units (unknown) date) unknown) (unknown) (no (unknown) (unknown) 10/26/22 18:20 (units (unknown) date) unknown) (unknown) (no (unknown) (unknown) 10/26/22 18:30 (units (unknown) date) unknown) (unknown) (no (unknown) (unknown) 10/26/22 19:32 (units (unknown) date) unknown) (unknown) (no (unknown) (unknown) 10/26/22 20:20 (units (unknown) date) unknown) (unknown) (no (unknown) (unknown) 10/26/22 (units (unkno wn) date) unknown) (unknown) (no (unknown) (unknown) 0924 (units (unkno wn) date) unknown) (unknown) (no (unknown) (unknown) [address] [place] [address] (units (unknown) date) unknown) (unknown) (no (unknown) (unknown) 16:47 18:00 18:00 (units (unknown) date) unknown) (unknown) (no (unknown) (unknown) 17:50 10/26/22 (units (unknown) date) unknown) (unknown) (no (unknown) (unknown) 18:00 18:30 20:20 (units (unknown) date) unknown) (unknown) (no (unknown) (unknown) 18:01 10/26/22 (units (unknown) date) unknown) (unknown) (no (unknown) (unknown) 18:03 10/26/22 (units (unknown) date) unknown) (unknown) (no (unknown) (unknown) 18:03 (units (unkno wn) date) unknown) (unknown) (no (unknown) (unknown) 18:30 10/26/22 (units (unknown) date) unknown) (unknown) (no (unknown) (unknown) 18:31 10/26/22 (units (unknown) date) unknown) (unknown) (no (unknown) (unknown) 18:31 (units (unkno wn) date) unknown) (unknown) (no (unknown) (unknown) 19:00 10/26/22 (units (unknown) date) unknown) (unknown) (no (unknown) (unknown) 19:00 (units (unkno wn) date) unknown) (unknown) (no (unknown) (unknown) 19:30 10/26/22 (units (unknown) date) unknown) (unknown) (no (unknown) (unknown) 19:30 (units (unkno wn) date) unknown) (unknown) (no (unknown) (unknown) 19:44 10/26/22 (units (unknown) date) unknown) (unknown) (no (unknown) (unknown) 19:44 (units (unkno wn) date) unknown) (unknown) (no (unknown) (unknown) 19:46 10/26/22 (units (unknown) date) unknown) (unknown) (no (unknown) (unknown) 19:49 10/26/22 (units (unknown) date) unknown) (unknown) (no (unknown) (unknown) 19:51 01/14/23 (units (unknown) date) unknown) (unknown) (no (unknown) (unknown) 20:00 10/26/22 (units (unknown) date) unknown) (unknown) (no (unknown) (unknown) 20:00 (units (unkno wn) date) unknown) (unknown) (no (unknown) (unknown) 20:30 10/26/22 (units (unknown) date) unknown) (unknown) (no (unknown) (unknown) 20:30 (units (unkno wn) date) unknown) (unknown) (no (unknown) (unknown) 21:00 10/26/22 (units (unknown) date) unknown) (unknown) (no (unknown) (unknown) 21:10/26/22 (units (unknown) date) unknown) (unknown) (no (unknown) (unknown) 21: (units (unkno wn) date) unknown) (unknown) (no (unknown) (unknown) ? (units (unkno wn) date) unknown) (unknown) (no (unknown) (unknown) ABDOMEN: Soft, (units (unknown) date) nontender. unknown) Normoactive bowel sounds all 4 quadrants. No (unknown) (no (unknown) (unknown) ALT (<35) IU/L (units (unknown) date) unknown) (unknown) (no (unknown) (unknown) ALT 375 H (<35) (units (unknown) date) IU/L unknown) (unknown) (no (unknown) (unknown) APTT (26-36) (units (u nknown) date) SECONDS unknown) (unknown) (no (unknown) (unknown) APTT 38 H (26-36) (units (unknown) date) SECONDS unknown) (unknown) (no (unknown) (unknown) AST (14-36) IU/L (units (unknown) date) unknown) (unknown) (no (unknown) (unknown) AST 263 H (14-36) (units (unknown) date) IU/L unknown) (unknown) (no (unknown) (unknown) Accession Number: (units (unknown) date) [id number] ?? unknown) (unknown) (no (unknown) (unknown) Acct:[id number] (units (unknown) date) unknown) (unknown) (no (unknown) (unknown) Age/Sex: 62 / F (units (unknown) date) unknown) (unknown) (no (unknown) (unknown) Alkaline (units (unkno wn) date) Phosphatase unknown) (38-126) U/L (unknown) (no (unknown) (unknown) Alkaline (units (unkno wn) date) Phosphatase 424 H unknown) (38-126) U/L (unknown) (no (unknown) (unknown) Allergies (units (unkn own) date) unknown) (unknown) (no (unknown) (unknown) Allergy/AdvReac (units (unknown) date) Type Severity unknown) Reaction Status Date / Time (unknown) (no (unknown) (unknown) [place], [place] (units ( unknown) date) [id number] unknown) (unknown) (no (unknown) (unknown) Antibiotics) Skin (units (unknown) date) unknown) (unknown) (no (unknown) (unknown) Approved by: Robert Rossunits (unknown) date) Ana Maria Arriaga on unknown) 10/26/2022 at 18:42?? (unknown) (no (unknown) (unknown) Aspirin (Aspirin (units (unknown) date) 81 Mg Chew Tab) unknown) 324 mg PO NOW ONE (unknown) (no (unknown) (unknown) Attestation: I (units (unknown) date) personally unknown) reviewed and interpreted this ECG as follows: (unknown) (no (unknown) (unknown) BUN (7-17) mg/dL (units (unknown) date) unknown) (unknown) (no (unknown) (unknown) BUN 23 H (7-17) (units (unknown) date) mg/dL unknown) (unknown) (no (unknown) (unknown) BUN/Creatinine (units (unknown) date) Ratio (6-22) unknown) (unknown) (no (unknown) (unknown) BUN/Creatinine (units (unknown) date) Ratio 13.9 (6-22) unknown) (unknown) (no (unknown) (unknown) Baso # (Auto) (units ( unknown) date) (0-100) /uL unknown) (unknown) (no (unknown) (unknown) Baso # (Auto) 100 (units (unknown) date) (0-100) /uL unknown) (unknown) (no (unknown) (unknown) Baso % (Auto) (units ( unknown) date) (0-2) % unknown) (unknown) (no (unknown) (unknown) Baso % (Auto) 0.9 (units (unknown) date) (0-2) % unknown) (unknown) (no (unknown) (unknown) Bedside Urine (units ( unknown) date) Bilirubin - unknown) Negative (unknown) (no (unknown) (unknown) Bedside Urine (units ( unknown) date) Glucose Negative unknown) (unknown) (no (unknown) (unknown) Bedside Urine (units ( unknown) date) Ketone - Negative unknown) (unknown) (no (unknown) (unknown) Bedside Urine (units ( unknown) date) Leukocytes - unknown) Negative (unknown) (no (unknown) (unknown) Bedside Urine (units ( unknown) date) Nitrite - Negative unknown) (unknown) (no (unknown) (unknown) Bedside Urine (units ( unknown) date) Occult Blood +/ unknown) (unknown) (no (unknown) (unknown) Bedside Urine (units ( unknown) date) Protein - Negative unknown) (unknown) (no (unknown) (unknown) Bedside Urine (units ( unknown) date) Urobilinogen - unknown) Negative (unknown) (no (unknown) (unknown) Bedside Urine pH (units (unknown) date) 6.0 unknown) (unknown) (no (unknown) (unknown) Blood Pressure (units (unknown) date) 121/62 unknown) (unknown) (no (unknown) (unknown) Blood Pressure (units (unknown) date) 127/59 L unknown) (unknown) (no (unknown) (unknown) Blood Pressure (units (unknown) date) 137/97 H unknown) (unknown) (no (unknown) (unknown) Blood Pressure (units (unknown) date) 143/65 H 144/67 H unknown) (unknown) (no (unknown) (unknown) Blood Pressure (units (unknown) date) 151/68 H 10/26/22 unknown) 17:50 (unknown) (no (unknown) (unknown) Blood Pressure (units (unknown) date) 151/68 H unknown) (unknown) (no (unknown) (unknown) Blood Pressure (units (unknown) date) 152/74 H 143/65 H unknown) 162/78 H (unknown) (no (unknown) (unknown) Blood Pressure (units (unknown) date) 152/74 H unknown) (unknown) (no (unknown) (unknown) Blood Pressure (units (unknown) date) 164/72 H 138/62 unknown) (unknown) (no (unknown) (unknown) Bones and chest (units (unknown) date) wall:? No unknown) suspicious bony lesions.? Overlying soft tissues (unknown) (no (unknown) (unknown) CARDIOVASCULAR: (units (unknown) date) Regular rate and unknown) rhythm without murmurs, rubs or gallops. No (unknown) (no (unknown) (unknown) CK-MB (CK-2) (units (u nknown) date) (<2.37) ng/mL unknown) (unknown) (no (unknown) (unknown) CK-MB (CK-2) 0.73 (units (unknown) date) (<2.37) ng/mL unknown) (unknown) (no (unknown) (unknown) CK-MB (CK-2) Rel (units (unknown) date) Index (1.5-5.0) % unknown) (unknown) (no (unknown) (unknown) CK-MB (CK-2) Rel (units (unknown) date) Index 0.5 L unknown) (1.5-5.0) % (unknown) (no (unknown) (unknown) COMPARISON:? (units (u nknown) date) [facility], unknown) CR, XR CHEST 1V, 03/30/2022, 18:39. (unknown) (no (unknown) (unknown) COVID19 -Nasal (units (unknown) date) RAPID/Pre-Proc unknown) Stat (unknown) (no (unknown) (unknown) Calcium (units (unkno wn) date) (8.4-10.2) mg/dL unknown) (unknown) (no (unknown) (unknown) Calcium 9.5 (units (un known) date) (8.4-10.2) mg/dL unknown) (unknown) (no (unknown) (unknown) Carbon Dioxide (units (unknown) date) (22-32) mmol/L unknown) (unknown) (no (unknown) (unknown) Carbon Dioxide 30 (units (unknown) date) (22-32) mmol/L unknown) (unknown) (no (unknown) (unknown) Chest x-ray: (units (u nknown) date) unknown) (unknown) (no (unknown) (unknown) Chief Complaint: (units (unknown) date) Chest Pain unknown) (unknown) (no (unknown) (unknown) Chloride (98-107) (units (unknown) date) mmol/L unknown) (unknown) (no (unknown) (unknown) Chloride 101 (units (u nknown) date) (98-107) mmol/L unknown) (unknown) (no (unknown) (unknown) Complete Blood (units (unknown) date) Count AUTO DIFF unknown) Stat (unknown) (no (unknown) (unknown) Comprehensive (units ( unknown) date) Metabolic Panel unknown) Stat (unknown) (no (unknown) (unknown) Course (units (unkno wn) date) unknown) (unknown) (no (unknown) (unknown) Creatinine (units (unk nown) date) (0.52-1.04) mg/dL unknown) (unknown) (no (unknown) (unknown) Creatinine 1.66 H (units (unknown) date) (0.52-1.04) mg/dL unknown) (unknown) (no (unknown) (unknown) : 1960 (units (unknown) date) Acct:[id number] unknown) (unknown) (no (unknown) (unknown) : 1960 (units (unknown) date) unknown) (unknown) (no (unknown) (unknown) Date of Service: (units (unknown) date) 10/26/22 unknown) (unknown) (no (unknown) (unknown) Departure (units (unkn own) date) unknown) (unknown) (no (unknown) (unknown) Dictated by: Robert (units (unknown) date) Ana Maria Arriaga on unknown) 10/26/2022 at 18:40 ? ? (unknown) (no (unknown) (unknown) Discharge Plan (units (unknown) date) unknown) (unknown) (no (unknown) (unknown) Discontinued (units (u nknown) date) Medications unknown) (unknown) (no (unknown) (unknown) Documented By: BS (units (unknown) date) unknown) (unknown) (no (unknown) (unknown) Documented By: (units (unknown) date) [facility] unknown) (unknown) (no (unknown) (unknown) ECG Data (units (unkno wn) date) unknown) (unknown) (no (unknown) (unknown) ED Orders (units (unkn own) date) unknown) (unknown) (no (unknown) (unknown) EKG-12 Lead Stat (units (unknown) date) unknown) (unknown) (no (unknown) (unknown) ER Physician: (units ( unknown) date) Ruthy Vance D.O. unknown) (unknown) (no (unknown) (unknown) EXTREMITIES: (units (u nknown) date) Normal range of unknown) motion, no clubbing or edema. Neurovascularly (unknown) (no (unknown) (unknown) Emergency Report (units (unknown) date) unknown) (unknown) (no (unknown) (unknown) Eos # (Auto) (units (u nknown) date) (0-450) /uL unknown) (unknown) (no (unknown) (unknown) Eos # (Auto) 200 (units (unknown) date) (0-450) /uL unknown) (unknown) (no (unknown) (unknown) Eos % (Auto) (units (u nknown) date) (2-4) % unknown) (unknown) (no (unknown) (unknown) Eos % (Auto) 3.1 (units (unknown) date) (2-4) % unknown) (unknown) (no (unknown) (unknown) Esterase (units (unkno wn) date) unknown) (unknown) (no (unknown) (unknown) Estimated GFR (units ( unknown) date) (>60) mL/min unknown) (unknown) (no (unknown) (unknown) Estimated GFR 35 (units (unknown) date) L (>60) mL/min unknown) (unknown) (no (unknown) (unknown) Exam Narrative: (units (unknown) date) unknown) (unknown) (no (unknown) (unknown) Exam (units (unkno wn) date) unknown) (unknown) (no (unknown) (unknown) FINDINGS:? (units (unk nown) date) unknown) (unknown) (no (unknown) (unknown) Arcenio Dey (units (unk nown) date) MD Madhav unknown) [Primary Care Provider] (unknown) (no (unknown) (unknown) GENERAL: Alert (units (unknown) date) and oriented x unknown) three, female in mild distress. (unknown) (no (unknown) (unknown) : No CVA (units (unk nown) date) tenderness unknown) (unknown) (no (unknown) (unknown) General (units (unkno wn) date) unknown) (unknown) (no (unknown) (unknown) Glucose (80-110) (units (unknown) date) mg/dL unknown) (unknown) (no (unknown) (unknown) Glucose 95 (units (unk nown) date) (80-110) mg/dL unknown) (unknown) (no (unknown) (unknown) HEENT: Head (units (un known) date) normocephalic, unknown) atraumatic, EOMI, pupils reactive, face symmetric, (unknown) (no (unknown) (unknown) HPI - Chest Pain (units (unknown) date) unknown) (unknown) (no (unknown) (unknown) HPI narrative: (units (unknown) date) unknown) (unknown) (no (unknown) (unknown) Hct (36-46) % (units ( unknown) date) unknown) (unknown) (no (unknown) (unknown) Hct 36.0 (36-46) (units (unknown) date) % unknown) (unknown) (no (unknown) (unknown) Hgb (12.0-16.0) (units (unknown) date) g/dL unknown) (unknown) (no (unknown) (unknown) Hgb 11.9 L (units (unk nown) date) (12.0-16.0) g/dL unknown) (unknown) (no (unknown) (unknown) History of (units (unk nown) date) Present Illness unknown) (unknown) (no (unknown) (unknown) IMPRESSION:? No (units (unknown) date) acute unknown) cardiopulmonary pathology. (unknown) (no (unknown) (unknown) INDICATIONS:? (units ( unknown) date) chest pain unknown) (unknown) (no (unknown) (unknown) INR (0.9-1.3) (units ( unknown) date) unknown) (unknown) (no (unknown) (unknown) INR 1.2 (0.9-1.3) (units (unknown) date) unknown) (unknown) (no (unknown) (unknown) Imaging Data (units (u nknown) date) unknown) (unknown) (no (unknown) (unknown) Initial Vital (units ( unknown) date) Signs unknown) (unknown) (no (unknown) (unknown) Initial Vital (units ( unknown) date) Signs: unknown) (unknown) (no (unknown) (unknown) Interpretation: (units (unknown) date) unknown) (unknown) (no (unknown) (unknown) [facility] (units (unknown) date) [address] unknown) [place] [address] (unknown) (no (unknown) (unknown) [facility] (units (unknown) date) unknown) (unknown) (no (unknown) (unknown) JVD. No swelling (units (unknown) date) bilateral lower unknown) extremities. (unknown) (no (unknown) (unknown) Lab Data (units (unkno wn) date) unknown) (unknown) (no (unknown) (unknown) Lab Results (units (un known) date) unknown) (unknown) (no (unknown) (unknown) Labs: (units (unkno wn) date) unknown) (unknown) (no (unknown) (unknown) Last Admin: (units (un known) date) 10/26/22 18:59 unknown) Dose: 324 mg (unknown) (no (unknown) (unknown) Last Admin: (units (un known) date) 10/26/22 19:46 unknown) Dose: 0.4 mg (unknown) (no (unknown) (unknown) Limitations: no (units (unknown) date) limitations unknown) (unknown) (no (unknown) (unknown) Lipase (23-300) (units (unknown) date) U/L unknown) (unknown) (no (unknown) (unknown) Lipase 153 (units (unk nown) date) (23-300) U/L unknown) (unknown) (no (unknown) (unknown) Lipase Stat (units (un known) date) unknown) (unknown) (no (unknown) (unknown) Loc: ED (units (unkno wn) date) unknown) (unknown) (no (unknown) (unknown) Lungs and (units (unkn own) date) pleura:? Lungs are unknown) clear.? No pleural effusions or pneumothorax.? (unknown) (no (unknown) (unknown) Lymph # (Auto) (units (unknown) date) ([id number]) /uL unknown) (unknown) (no (unknown) (unknown) Lymph # (Auto) (units (unknown) date) 1900 ([id number]) unknown) /uL (unknown) (no (unknown) (unknown) Lymph % (Auto) (units (unknown) date) (25-40) % unknown) (unknown) (no (unknown) (unknown) Lymph % (Auto) (units (unknown) date) 32.2 (25-40) % unknown) (unknown) (no (unknown) (unknown) MCH (26-34) PG (units (unknown) date) unknown) (unknown) (no (unknown) (unknown) MCH 29.8 (26-34) (units (unknown) date) PG unknown) (unknown) (no (unknown) (unknown) MCHC (30-36) % (units (unknown) date) unknown) (unknown) (no (unknown) (unknown) MCHC 33.1 (30-36) (units (unknown) date) % unknown) (unknown) (no (unknown) (unknown) MCV (80-100) fL (units (unknown) date) unknown) (unknown) (no (unknown) (unknown) MCV 90.0 (80-100) (units (unknown) date) fL unknown) (unknown) (no (unknown) (unknown) MDM - Chest Pain (units (unknown) date) unknown) (unknown) (no (unknown) (unknown) MDM Narrative (units ( unknown) date) unknown) (unknown) (no (unknown) (unknown) MR#: [id number] (units (unknown) date) unknown) (unknown) (no (unknown) (unknown) Magnesium (units (unkn own) date) (1.6-2.3) mg/dL unknown) (unknown) (no (unknown) (unknown) Magnesium 2.0 (units ( unknown) date) (1.6-2.3) mg/dL unknown) (unknown) (no (unknown) (unknown) Magnesium Stat (units (unknown) date) unknown) (unknown) (no (unknown) (unknown) Mediastinum:? (units ( unknown) date) Mediastinal unknown) contours appear normal.? Heart size is normal.? (unknown) (no (unknown) (unknown) Medical decision (units (unknown) date) making narrative: unknown) (unknown) (no (unknown) (unknown) Mode of arrival: (units (unknown) date) Ambulatory unknown) (unknown) (no (unknown) (unknown) [place] # (Auto) (units ( unknown) date) (0-900) /uL unknown) (unknown) (no (unknown) (unknown) [place] # (Auto) 600 (units (unknown) date) (0-900) /uL unknown) (unknown) (no (unknown) (unknown) [place] % (Auto) (units ( unknown) date) (3-14) % unknown) (unknown) (no (unknown) (unknown) [place] % (Auto) (units ( unknown) date) 10.2 (3-14) % unknown) (unknown) (no (unknown) (unknown) NECK: Supple, (units ( unknown) date) full range of unknown) motion (unknown) (no (unknown) (unknown) NEUROLOGICAL: (units ( unknown) date) Cranial nerves II unknown) through XII grossly intact. Moving all (unknown) (no (unknown) (unknown) NSR rate of 73, (units (unknown) date) pr 144, qrs 90, unknown) Qtc 409. No acute ST changes. (unknown) (no (unknown) (unknown) Narrative (units (unkn own) date) unknown) (unknown) (no (unknown) (unknown) Neut # (Auto) (units ( unknown) date) (0307-7031) /uL unknown) (unknown) (no (unknown) (unknown) Neut # (Auto) (units ( unknown) date) 3200 (6714-0484) unknown) /uL (unknown) (no (unknown) (unknown) Neut % (Auto) (units ( unknown) date) (50-75) % unknown) (unknown) (no (unknown) (unknown) Neut % (Auto) (units ( unknown) date) 53.6 (50-75) % unknown) (unknown) (no (unknown) (unknown) Nitroglycerin (units ( unknown) date) (Nitroglycerin 0.4 unknown) Mg Sl Tab) 0.4 mg SL [id number] PRN (unknown) (no (unknown) (unknown) Ordered: (units (unkno wn) date) unknown) (unknown) (no (unknown) (unknown) Ordering (units (unkno wn) date) Provider: unknown) Vignesh Garcia D.O. (unknown) (no (unknown) (unknown) Orders (units (unkno wn) date) unknown) (unknown) (no (unknown) (unknown) Oxygen Delivery (units (unknown) date) Method 10/26/22 unknown) 17:50 (unknown) (no (unknown) (unknown) Oxygen Delivery (units (unknown) date) Method Room Air unknown) (unknown) (no (unknown) (unknown) Oxygen Delivery (units (unknown) date) Method unknown) (unknown) (no (unknown) (unknown) PRN Reason: Chest (units (unknown) date) Pain unknown) (unknown) (no (unknown) (unknown) PROCEDURE:? XR (units (unknown) date) CHEST 1V unknown) (unknown) (no (unknown) (unknown) PT (10.1-12.7) (units (unknown) date) SECONDS unknown) (unknown) (no (unknown) (unknown) PT 14.3 H (units (unkn own) date) (10.1-12.7) unknown) SECONDS (unknown) (no (unknown) (unknown) Partial (units (unkno wn) date) Thromboplastin unknown) Time Stat (unknown) (no (unknown) (unknown) Patient History (units (unknown) date) unknown) (unknown) (no (unknown) (unknown) Patient states (units (unknown) date) she is never had a unknown) stress test or cardiac catheterization. (unknown) (no (unknown) (unknown) Patient: (units (unkno wn) date) Mona Hunter MR#: unknown) [id number] (unknown) (no (unknown) (unknown) Patient: (units (unkno wn) date) Mona Hunter unknown) (unknown) (no (unknown) (unknown) Plt Count (units (unkn own) date) (150-400) X103/uL unknown) (unknown) (no (unknown) (unknown) Plt Count 284 (units ( unknown) date) (150-400) X103/uL unknown) (unknown) (no (unknown) (unknown) Potassium (units (unkn own) date) (3.4-5.1) mmol/L unknown) (unknown) (no (unknown) (unknown) Potassium 3.7 (units ( unknown) date) (3.4-5.1) mmol/L unknown) (unknown) (no (unknown) (unknown) Prior ECG (units (unkn own) date) tracings: unknown) available for review (unknown) (no (unknown) (unknown) Procedure: XR (units ( unknown) date) chest 1V unknown) (unknown) (no (unknown) (unknown) Prothrombin Time (units (unknown) date) INR Stat unknown) (unknown) (no (unknown) (unknown) Pulse Oximetry 96 (units (unknown) date) unknown) (unknown) (no (unknown) (unknown) Pulse Oximetry 97 (units (unknown) date) 96 unknown) (unknown) (no (unknown) (unknown) Pulse Oximetry 97 (units (unknown) date) unknown) (unknown) (no (unknown) (unknown) Pulse Oximetry 98 (units (unknown) date) 97 unknown) (unknown) (no (unknown) (unknown) Pulse Oximetry 98 (units (unknown) date) 98 unknown) (unknown) (no (unknown) (unknown) Pulse Oximetry 99 (units (unknown) date) 10/26/22 17:50 unknown) (unknown) (no (unknown) (unknown) Pulse Oximetry 99 (units (unknown) date) 99 99 unknown) (unknown) (no (unknown) (unknown) Pulse Oximetry (units (unknown) date) unknown) (unknown) (no (unknown) (unknown) Pulse Rate 74 72 (units (unknown) date) unknown) (unknown) (no (unknown) (unknown) Pulse Rate 78 78 (units (unknown) date) unknown) (unknown) (no (unknown) (unknown) Pulse Rate 78 80 (units (unknown) date) unknown) (unknown) (no (unknown) (unknown) Pulse Rate 78 (units ( unknown) date) unknown) (unknown) (no (unknown) (unknown) Pulse Rate 79 75 (units (unknown) date) unknown) (unknown) (no (unknown) (unknown) Pulse Rate 80 80 (units (unknown) date) unknown) (unknown) (no (unknown) (unknown) Pulse Rate 80 (units ( unknown) date) unknown) (unknown) (no (unknown) (unknown) Pulse Rate 86 (units ( unknown) date) 10/26/22 17:50 unknown) (unknown) (no (unknown) (unknown) Pulse Rate 86 78 (units (unknown) date) 81 unknown) (unknown) (no (unknown) (unknown) RBC (4.0-5.2) (units ( unknown) date) X106/uL unknown) (unknown) (no (unknown) (unknown) RBC 4.00 (units (unkno wn) date) (4.0-5.2) X106/uL unknown) (unknown) (no (unknown) (unknown) RDW (11.6-14.8) % (units (unknown) date) unknown) (unknown) (no (unknown) (unknown) RDW 14.7 (units (unkno wn) date) (11.6-14.8) % unknown) (unknown) (no (unknown) (unknown) RESPIRATORY: (units (u nknown) date) Breath sounds unknown) equal bilaterally, no wheezes rales or rhonchi. (unknown) (no (unknown) (unknown) ROS Unobtainable: (units (unknown) date) All systems unknown) reviewed + are unremarkable except as noted in HPI (unknown) (no (unknown) (unknown) Radiologist's (units ( unknown) date) Impression: unknown) (unknown) (no (unknown) (unknown) Referrals: (units (unk nown) date) unknown) (unknown) (no (unknown) (unknown) Related Data (units (u nknown) date) unknown) (unknown) (no (unknown) (unknown) Respiratory Rate (units (unknown) date) 18 10/26/22 17:50 unknown) (unknown) (no (unknown) (unknown) Respiratory Rate (units (unknown) date) 18 unknown) (unknown) (no (unknown) (unknown) Respiratory Rate (units (unknown) date) 19 24 unknown) (unknown) (no (unknown) (unknown) Respiratory Rate (units (unknown) date) 20 19 unknown) (unknown) (no (unknown) (unknown) Respiratory Rate (units (unknown) date) 21 35 H unknown) (unknown) (no (unknown) (unknown) Respiratory Rate (units (unknown) date) 23 28 H unknown) (unknown) (no (unknown) (unknown) Respiratory Rate (units (unknown) date) 23 unknown) (unknown) (no (unknown) (unknown) Respiratory Rate (units (unknown) date) unknown) (unknown) (no (unknown) (unknown) Result diagrams: (units (unknown) date) unknown) (unknown) (no (unknown) (unknown) Review of Systems (units (unknown) date) unknown) (unknown) (no (unknown) (unknown) SARS-CoV-2 (PCR) (units (unknown) date) (Negative) unknown) (unknown) (no (unknown) (unknown) SARS-CoV-2 (PCR) (units (unknown) date) Negative unknown) (Negative) (unknown) (no (unknown) (unknown) SKIN: Warm, dry, (units (unknown) date) no petechiae, no unknown) rashes or lesions. (unknown) (no (unknown) (unknown) Signed By: (units (unk nown) date) unknown) (unknown) (no (unknown) (unknown) Signed (units (unkno wn) date) unknown) (unknown) (no (unknown) (unknown) Sinus rhythm rate (units (unknown) date) of 79 CA 138 QRS unknown) of 94 QTC 415. No acute ST elevation or (unknown) (no (unknown) (unknown) Smoking Status: (units (unknown) date) Current every day unknown) smoker (unknown) (no (unknown) (unknown) Social History (units (unknown) date) (Reviewed 10/26/22 unknown) @ 19:36 by Ruthy Vance DO) (unknown) (no (unknown) (unknown) Sodium (137-145) (units (unknown) date) mmol/L unknown) (unknown) (no (unknown) (unknown) Sodium 141 (units (unk nown) date) (137-145) mmol/L unknown) (unknown) (no (unknown) (unknown) Source: patient (units (unknown) date) unknown) (unknown) (no (unknown) (unknown) Stated Complaint: (units (unknown) date) Chest pain, unknown) squeezing, light headed, 'not right' (unknown) (no (unknown) (unknown) States she is (units ( unknown) date) allergic to sulfa unknown) tetracycline. She does smoke tobacco, denies (unknown) (no (unknown) (unknown) Stop: 10/26/22 (units (unknown) date) 17:57 unknown) (unknown) (no (unknown) (unknown) Substance Use (units ( unknown) date) Type: does not use unknown) (unknown) (no (unknown) (unknown) Sulfa (units (unkno wn) date) (Sulfonamide unknown) Allergy Redness of Verified 10/26/22 17:50 (unknown) (no (unknown) (unknown) Surgical changes (units (unknown) date) and devices:? unknown) None.? (unknown) (no (unknown) (unknown) TECHNIQUE:? One (units (unknown) date) view of the chest unknown) was acquired.? (unknown) (no (unknown) (unknown) Temperature 98.1 (units (unknown) date) F 10/26/22 17:50 unknown) (unknown) (no (unknown) (unknown) Temperature 98.1 (units (unknown) date) F unknown) (unknown) (no (unknown) (unknown) Temperature (units (un known) date) unknown) (unknown) (no (unknown) (unknown) This is a (units (unkno wn) date) 62-year-old female unknown) with history of factor 8 elevation, 3 prior strokes (unknown) (no (unknown) (unknown) This is a (units (unkn own) date) 62-year-old female unknown) with history of hypertension, diabetes, factor 8 (unknown) (no (unknown) (unknown) Time Seen by (units (u nknown) date) Provider: 10/26/22 unknown) 19:14 (unknown) (no (unknown) (unknown) Total Bilirubin (units (unknown) date) (0.2-1.3) mg/dL unknown) (unknown) (no (unknown) (unknown) Total Bilirubin (units (unknown) date) 0.9 (0.2-1.3) unknown) mg/dL (unknown) (no (unknown) (unknown) Total Creatine (units (unknown) date) Kinase (30-135) unknown) U/L (unknown) (no (unknown) (unknown) Total Creatine (units (unknown) date) Kinase 143 H unknown) (30-135) U/L (unknown) (no (unknown) (unknown) Total Protein (units ( unknown) date) (6.3-8.2) g/dL unknown) (unknown) (no (unknown) (unknown) Total Protein 7.9 (units (unknown) date) (6.3-8.2) g/dL unknown) (unknown) (no (unknown) (unknown) Trop I [Troponin (units (unknown) date) I] Stat unknown) (unknown) (no (unknown) (unknown) Troponin + CK (units ( unknown) date) Cardiac Panel Stat unknown) (unknown) (no (unknown) (unknown) Troponin I < (units (u nknown) date) 0.012 < 0.012 unknown) (0.01-0.034) ng/mL (unknown) (no (unknown) (unknown) Troponin I (units (unk nown) date) (0.01-0.034) ng/mL unknown) (unknown) (no (unknown) (unknown) Friday. (units (unkno wn) date) unknown) (unknown) (no (unknown) (unknown) US abdomen (units (unk nown) date) complete Stat unknown) (unknown) (no (unknown) (unknown) Ur Culture (units (unk nown) date) Indicated? Cult unknown) not indicated (unknown) (no (unknown) (unknown) Ur Culture (units (unk nown) date) Indicated? unknown) (unknown) (no (unknown) (unknown) Urine Bacteria (units (unknown) date) (None) unknown) (unknown) (no (unknown) (unknown) Urine Bacteria (units (unknown) date) None seen (None) unknown) (unknown) (no (unknown) (unknown) Urine Dip (units (unkn own) date) unknown) (unknown) (no (unknown) (unknown) Urine Microscopic (units (unknown) date) Stat unknown) (unknown) (no (unknown) (unknown) Urine RBC (units (unkn own) date) (0-5/HPF) unknown) (unknown) (no (unknown) (unknown) Urine RBC None (units (unknown) date) seen (0-5/HPF) unknown) (unknown) (no (unknown) (unknown) Urine Specific (units (unknown) date) Ophelia 1.015 unknown) (unknown) (no (unknown) (unknown) Urine WBC (units (unkn own) date) (0-5/HPF) unknown) (unknown) (no (unknown) (unknown) Urine WBC 0-1/hpf (units (unknown) date) (0-5/HPF) unknown) (unknown) (no (unknown) (unknown) Vital Signs - 8 (units (unknown) date) hr unknown) (unknown) (no (unknown) (unknown) Vital Signs (units (un known) date) unknown) (unknown) (no (unknown) (unknown) Vital signs: (units (u nknown) date) unknown) (unknown) (no (unknown) (unknown) WBC (4.5-11.0) (units (unknown) date) X103/uL unknown) (unknown) (no (unknown) (unknown) WBC 5.9 (units (unkno wn) date) (4.5-11.0) X103/uL unknown) (unknown) (no (unknown) (unknown) XR chest 1V Stat (units (unknown) date) unknown) (unknown) (no (unknown) (unknown) XRay Report (units (un known) date) unknown) (unknown) (no (unknown) (unknown) [Embedded Image (units (unknown) date) Not Available] unknown) (unknown) (no (unknown) (unknown) alcohol intake (units (unknown) date) frequency: 0-2 unknown) drinks per day (unknown) (no (unknown) (unknown) alcohol, denies (units (unknown) date) illicit. Primary unknown) care is Dr. Dey she has not appointment on (unknown) (no (unknown) (unknown) also notes she is (units (unknown) date) had left flank unknown) pain for the past week she states she has a (unknown) (no (unknown) (unknown) and below (units (unkn own) date) unknown) (unknown) (no (unknown) (unknown) appear (units (unkno wn) date) unknown) (unknown) (no (unknown) (unknown) been constipated. (units (unknown) date) She states in unknown) terms of surgeries she is had lithotripsies, (unknown) (no (unknown) (unknown) depression noted. (units (unknown) date) Patient has prior unknown) from 03/30/2022 with no acute changes. (unknown) (no (unknown) (unknown) describes (units (unkn own) date) intermittent unknown) rating her jaw and left arm. She felt dizzy during these (unknown) (no (unknown) (unknown) diabetes, (units (unkn own) date) hypertension unknown) dyslipidemia and prior kidney stones. 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 Lipase (unknown) (no (unknown) (unknown) episodes and felt (units (unknown) date) short of breath unknown) during episodes they resolved on their own she (unknown) (no (unknown) (unknown) extremities (units (un known) date) unknown) (unknown) (no (unknown) (unknown) guarding or (units (un known) date) rebound, rigidity, unknown) no mass (unknown) (no (unknown) (unknown) history of kidney (units (unknown) date) stones feels unknown) similar. Patient denies dysuria frequency or (unknown) (no (unknown) (unknown) in her chest. (units ( unknown) date) Patient states she unknown) has not had similar symptoms in the past. She (unknown) (no (unknown) (unknown) intact (units (unkno wn) date) unknown) (unknown) (no (unknown) (unknown) is had an (units (unkn own) date) intermittently. unknown) She is had nausea when she has a squeezing sensation (unknown) (no (unknown) (unknown) is negative and (units (unknown) date) bilirubins normal. unknown) (unknown) (no (unknown) (unknown) major changes. (units (unknown) date) Creatinine appears unknown) stable from her baseline, she does have an (unknown) (no (unknown) (unknown) moist mucous (units (u nknown) date) membranes unknown) (unknown) (no (unknown) (unknown) of left chest (units ( unknown) date) pain squeezing unknown) radiating to her jaw arm intermittent. Has (unknown) (no (unknown) (unknown) on Eliquis, CKD (units (unknown) date) stage 3, Crohn's unknown) disease, diverticulitis, diet-controlled (unknown) (no (unknown) (unknown) resolved at this (units (unknown) date) time she also unknown) notes a little bit of left flank pain. Patient (unknown) (no (unknown) (unknown) tobacco type: (units ( unknown) date) cigarettes unknown) (unknown) (no (unknown) (unknown) unremarkable.? (units (unknown) date) unknown) (unknown) (no (unknown) (unknown) ureteral stents, (units (unknown) date) x3 with unknown) a complete hysterectomy for endometriosis. (unknown) (no (unknown) (unknown) urgency she (units (un known) date) states it has been unknown) a little bit more difficult to urinate. She is (unknown) (no (unknown) (unknown) woke up from a (units (unknown) date) nap at about 1300 unknown) day had left-sided chest squeezing which he Result panel 153 (unknown) (no (unknown) (unknown) (no value) (units (unk nown) date) unknown) (unknown) (no (unknown) (unknown) 10/26/22 10/26/22 (units (unknown) date) 10/26/22 unknown) Range/Units (unknown) (no (unknown) (unknown) 10/26/22 16:47 (units (unknown) date) unknown) (unknown) (no (unknown) (unknown) 10/26/22 17:56 (units (unknown) date) unknown) (unknown) (no (unknown) (unknown) 10/26/22 18:00 (units (unknown) date) unknown) (unknown) (no (unknown) (unknown) 10/26/22 18:20 (units (unknown) date) unknown) (unknown) (no (unknown) (unknown) 10/26/22 18:30 (units (unknown) date) unknown) (unknown) (no (unknown) (unknown) 10/26/22 19:32 (units (unknown) date) unknown) (unknown) (no (unknown) (unknown) 10/26/22 20:20 (units (unknown) date) unknown) (unknown) (no (unknown) (unknown) 10/26/22 (units (unkno wn) date) unknown) (unknown) (no (unknown) (unknown) 0924 (units (unkno wn) date) unknown) (unknown) (no (unknown) (unknown) [address] [place] [address] (units (unknown) date) unknown) (unknown) (no (unknown) (unknown) 16:47 18:00 18:00 (units (unknown) date) unknown) (unknown) (no (unknown) (unknown) 17:50 10/26/22 (units (unknown) date) unknown) (unknown) (no (unknown) (unknown) 18:00 18:30 20:20 (units (unknown) date) unknown) (unknown) (no (unknown) (unknown) 18:01 10/26/22 (units (unknown) date) unknown) (unknown) (no (unknown) (unknown) 18:03 10/26/22 (units (unknown) date) unknown) (unknown) (no (unknown) (unknown) 18:03 (units (unkno wn) date) unknown) (unknown) (no (unknown) (unknown) 18:30 10/26/22 (units (unknown) date) unknown) (unknown) (no (unknown) (unknown) 18:31 10/26/22 (units (unknown) date) unknown) (unknown) (no (unknown) (unknown) 18:31 (units (unkno wn) date) unknown) (unknown) (no (unknown) (unknown) 19:00 10/26/22 (units (unknown) date) unknown) (unknown) (no (unknown) (unknown) 19:00 (units (unkno wn) date) unknown) (unknown) (no (unknown) (unknown) 19:30 10/26/22 (units (unknown) date) unknown) (unknown) (no (unknown) (unknown) 19:30 (units (unkno wn) date) unknown) (unknown) (no (unknown) (unknown) 19:44 10/26/22 (units (unknown) date) unknown) (unknown) (no (unknown) (unknown) 19:44 (units (unkno wn) date) unknown) (unknown) (no (unknown) (unknown) 19:46 10/26/22 (units (unknown) date) unknown) (unknown) (no (unknown) (unknown) 19:49 10/26/22 (units (unknown) date) unknown) (unknown) (no (unknown) (unknown) 19:51 10/26/22 (units (unknown) date) unknown) (unknown) (no (unknown) (unknown) 20:00 10/26/22 (units (unknown) date) unknown) (unknown) (no (unknown) (unknown) 20:00 (units (unkno wn) date) unknown) (unknown) (no (unknown) (unknown) 20:30 10/26/22 (units (unknown) date) unknown) (unknown) (no (unknown) (unknown) 20:30 (units (unkno wn) date) unknown) (unknown) (no (unknown) (unknown) 21:00 10/26/22 (units (unknown) date) unknown) (unknown) (no (unknown) (unknown) 21:01 10/26/22 (units (unknown) date) unknown) (unknown) (no (unknown) (unknown) 21:01 (units (unkno wn) date) unknown) (unknown) (no (unknown) (unknown) ? (units (unkno wn) date) unknown) (unknown) (no (unknown) (unknown) ABDOMEN: Soft, (units (unknown) date) nontender. unknown) Normoactive bowel sounds all 4 quadrants. No (unknown) (no (unknown) (unknown) ALT (<35) IU/L (units (unknown) date) unknown) (unknown) (no (unknown) (unknown) ALT 375 H (<35) (units (unknown) date) IU/L unknown) (unknown) (no (unknown) (unknown) APTT (26-36) (units (u nknown) date) SECONDS unknown) (unknown) (no (unknown) (unknown) APTT 38 H (26-36) (units (unknown) date) SECONDS unknown) (unknown) (no (unknown) (unknown) AST (14-36) IU/L (units (unknown) date) unknown) (unknown) (no (unknown) (unknown) AST 263 H (14-36) (units (unknown) date) IU/L unknown) (unknown) (no (unknown) (unknown) Accession Number: (units (unknown) date) [id number] ?? unknown) (unknown) (no (unknown) (unknown) Acct:[id number] (units (unknown) date) unknown) (unknown) (no (unknown) (unknown) Age/Sex: 62 / F (units (unknown) date) unknown) (unknown) (no (unknown) (unknown) Alkaline (units (unkno wn) date) Phosphatase unknown) (38-126) U/L (unknown) (no (unknown) (unknown) Alkaline (units (unkno wn) date) Phosphatase 424 H unknown) (38-126) U/L (unknown) (no (unknown) (unknown) Allergies (units (unkn own) date) unknown) (unknown) (no (unknown) (unknown) Allergy/AdvReac (units (unknown) date) Type Severity unknown) Reaction Status Date / Time (unknown) (no (unknown) (unknown) [place], [place] (units ( unknown) date) [id number] unknown) (unknown) (no (unknown) (unknown) Antibiotics) Skin (units (unknown) date) unknown) (unknown) (no (unknown) (unknown) Approved by: Robert (units (unknown) date) Ana Maria Arriaga on unknown) 10/26/2022 at 18:42?? (unknown) (no (unknown) (unknown) Aspirin (Aspirin (units (unknown) date) 81 Mg Chew Tab) unknown) 324 mg PO NOW ONE (unknown) (no (unknown) (unknown) Attestation: I (units (unknown) date) personally unknown) reviewed and interpreted this ECG as follows: (unknown) (no (unknown) (unknown) BUN (7-17) mg/dL (units (unknown) date) unknown) (unknown) (no (unknown) (unknown) BUN 23 H (7-17) (units (unknown) date) mg/dL unknown) (unknown) (no (unknown) (unknown) BUN/Creatinine (units (unknown) date) Ratio (6-22) unknown) (unknown) (no (unknown) (unknown) BUN/Creatinine (units (unknown) date) Ratio 13.9 (6-22) unknown) (unknown) (no (unknown) (unknown) Baso # (Auto) (units ( unknown) date) (0-100) /uL unknown) (unknown) (no (unknown) (unknown) Baso # (Auto) 100 (units (unknown) date) (0-100) /uL unknown) (unknown) (no (unknown) (unknown) Baso % (Auto) (units ( unknown) date) (0-2) % unknown) (unknown) (no (unknown) (unknown) Baso % (Auto) 0.9 (units (unknown) date) (0-2) % unknown) (unknown) (no (unknown) (unknown) Bedside Urine (units ( unknown) date) Bilirubin - unknown) Negative (unknown) (no (unknown) (unknown) Bedside Urine (units ( unknown) date) Glucose Negative unknown) (unknown) (no (unknown) (unknown) Bedside Urine (units ( unknown) date) Ketone - Negative unknown) (unknown) (no (unknown) (unknown) Bedside Urine (units ( unknown) date) Leukocytes - unknown) Negative (unknown) (no (unknown) (unknown) Bedside Urine (units ( unknown) date) Nitrite - Negative unknown) (unknown) (no (unknown) (unknown) Bedside Urine (units ( unknown) date) Occult Blood +/ unknown) (unknown) (no (unknown) (unknown) Bedside Urine (units ( unknown) date) Protein - Negative unknown) (unknown) (no (unknown) (unknown) Bedside Urine (units ( unknown) date) Urobilinogen - unknown) Negative (unknown) (no (unknown) (unknown) Bedside Urine pH (units (unknown) date) 6.0 unknown) (unknown) (no (unknown) (unknown) Blood Pressure (units (unknown) date) 121/62 unknown) (unknown) (no (unknown) (unknown) Blood Pressure (units (unknown) date) 127/59 L unknown) (unknown) (no (unknown) (unknown) Blood Pressure (units (unknown) date) 137/97 H unknown) (unknown) (no (unknown) (unknown) Blood Pressure (units (unknown) date) 143/65 H 144/67 H unknown) (unknown) (no (unknown) (unknown) Blood Pressure (units (unknown) date) 151/68 H 10/26/22 unknown) 17:50 (unknown) (no (unknown) (unknown) Blood Pressure (units (unknown) date) 151/68 H unknown) (unknown) (no (unknown) (unknown) Blood Pressure (units (unknown) date) 152/74 H 143/65 H unknown) 162/78 H (unknown) (no (unknown) (unknown) Blood Pressure (units (unknown) date) 152/74 H unknown) (unknown) (no (unknown) (unknown) Blood Pressure (units (unknown) date) 164/72 H 138/62 unknown) (unknown) (no (unknown) (unknown) Bones and chest (units (unknown) date) wall:? No unknown) suspicious bony lesions.? Overlying soft tissues (unknown) (no (unknown) (unknown) CARDIOVASCULAR: (units (unknown) date) Regular rate and unknown) rhythm without murmurs, rubs or gallops. No (unknown) (no (unknown) (unknown) CK-MB (CK-2) (units (u nknown) date) (<2.37) ng/mL unknown) (unknown) (no (unknown) (unknown) CK-MB (CK-2) 0.73 (units (unknown) date) (<2.37) ng/mL unknown) (unknown) (no (unknown) (unknown) CK-MB (CK-2) Rel (units (unknown) date) Index (1.5-5.0) % unknown) (unknown) (no (unknown) (unknown) CK-MB (CK-2) Rel (units (unknown) date) Index 0.5 L unknown) (1.5-5.0) % (unknown) (no (unknown) (unknown) COMPARISON:? (units (u nknown) date) [facility], unknown) CR, XR CHEST 1V, 03/30/2022, 18:39. (unknown) (no (unknown) (unknown) COVID19 -Nasal (units (unknown) date) RAPID/Pre-Proc unknown) Stat (unknown) (no (unknown) (unknown) Calcium (units (unkno wn) date) (8.4-10.2) mg/dL unknown) (unknown) (no (unknown) (unknown) Calcium 9.5 (units (un known) date) (8.4-10.2) mg/dL unknown) (unknown) (no (unknown) (unknown) Carbon Dioxide (units (unknown) date) (22-32) mmol/L unknown) (unknown) (no (unknown) (unknown) Carbon Dioxide 30 (units (unknown) date) (22-32) mmol/L unknown) (unknown) (no (unknown) (unknown) Chest x-ray: (units (u nknown) date) unknown) (unknown) (no (unknown) (unknown) Chief Complaint: (units (unknown) date) Chest Pain unknown) (unknown) (no (unknown) (unknown) Chloride (98-107) (units (unknown) date) mmol/L unknown) (unknown) (no (unknown) (unknown) Chloride 101 (units (u nknown) date) (98-107) mmol/L unknown) (unknown) (no (unknown) (unknown) Complete Blood (units (unknown) date) Count AUTO DIFF unknown) Stat (unknown) (no (unknown) (unknown) Comprehensive (units ( unknown) date) Metabolic Panel unknown) Stat (unknown) (no (unknown) (unknown) Consultation #1: (units (unknown) date) unknown) (unknown) (no (unknown) (unknown) Consultations (units ( unknown) date) unknown) (unknown) (no (unknown) (unknown) Course (units (unkno wn) date) unknown) (unknown) (no (unknown) (unknown) Creatinine (units (unk nown) date) (0.52-1.04) mg/dL unknown) (unknown) (no (unknown) (unknown) Creatinine 1.66 H (units (unknown) date) (0.52-1.04) mg/dL unknown) (unknown) (no (unknown) (unknown) : 1960 (units (unknown) date) Acct:[id number] unknown) (unknown) (no (unknown) (unknown) : 1960 (units (unknown) date) unknown) (unknown) (no (unknown) (unknown) Date of Service: (units (unknown) date) 10/26/22 unknown) (unknown) (no (unknown) (unknown) Departure (units (unkn own) date) unknown) (unknown) (no (unknown) (unknown) Dictated by: Robert (units (unknown) date) Ana Maria Arriaga on unknown) 10/26/2022 at 18:40 ? ? (unknown) (no (unknown) (unknown) Discharge Plan (units (unknown) date) unknown) (unknown) (no (unknown) (unknown) Discontinued (units (u nknown) date) Medications unknown) (unknown) (no (unknown) (unknown) Documented By: BS (units (unknown) date) unknown) (unknown) (no (unknown) (unknown) Documented By: (units (unknown) date) JO unknown) (unknown) (no (unknown) (unknown) Dr. Kearney, (units ( unknown) date) unknown) (unknown) (no (unknown) (unknown) ECG Data (units (unkno wn) date) unknown) (unknown) (no (unknown) (unknown) ED Orders (units (unkn own) date) unknown) (unknown) (no (unknown) (unknown) EKG-12 Lead Stat (units (unknown) date) unknown) (unknown) (no (unknown) (unknown) ER Physician: (units ( unknown) date) Ruthy Vance D.O. unknown) (unknown) (no (unknown) (unknown) EXTREMITIES: (units (u nknown) date) Normal range of unknown) motion, no clubbing or edema. Neurovascularly (unknown) (no (unknown) (unknown) Emergency Report (units (unknown) date) unknown) (unknown) (no (unknown) (unknown) Eos # (Auto) (units (u nknown) date) (0-450) /uL unknown) (unknown) (no (unknown) (unknown) Eos # (Auto) 200 (units (unknown) date) (0-450) /uL unknown) (unknown) (no (unknown) (unknown) Eos % (Auto) (units (u nknown) date) (2-4) % unknown) (unknown) (no (unknown) (unknown) Eos % (Auto) 3.1 (units (unknown) date) (2-4) % unknown) (unknown) (no (unknown) (unknown) Esterase (units (unkno wn) date) unknown) (unknown) (no (unknown) (unknown) Estimated GFR (units ( unknown) date) (>60) mL/min unknown) (unknown) (no (unknown) (unknown) Estimated GFR 35 (units (unknown) date) L (>60) mL/min unknown) (unknown) (no (unknown) (unknown) Exam Narrative: (units (unknown) date) unknown) (unknown) (no (unknown) (unknown) Exam (units (unkno wn) date) unknown) (unknown) (no (unknown) (unknown) FINDINGS:? (units (unk nown) date) unknown) (unknown) (no (unknown) (unknown) Arcenio Dey (units (unk nown) date) MD Madhav unknown) [Primary Care Provider] (unknown) (no (unknown) (unknown) GENERAL: Alert (units (unknown) date) and oriented x unknown) three, female in mild distress. (unknown) (no (unknown) (unknown) : No CVA (units (unk nown) date) tenderness unknown) (unknown) (no (unknown) (unknown) General (units (unkno wn) date) unknown) (unknown) (no (unknown) (unknown) Glucose (80-110) (units (unknown) date) mg/dL unknown) (unknown) (no (unknown) (unknown) Glucose 95 (units (unk nown) date) (80-110) mg/dL unknown) (unknown) (no (unknown) (unknown) HEENT: Head (units (un known) date) normocephalic, unknown) atraumatic, EOMI, pupils reactive, face symmetric, (unknown) (no (unknown) (unknown) HPI - Chest Pain (units (unknown) date) unknown) (unknown) (no (unknown) (unknown) HPI narrative: (units (unknown) date) unknown) (unknown) (no (unknown) (unknown) Hct (36-46) % (units ( unknown) date) unknown) (unknown) (no (unknown) (unknown) Hct 36.0 (36-46) (units (unknown) date) % unknown) (unknown) (no (unknown) (unknown) Hgb (12.0-16.0) (units (unknown) date) g/dL unknown) (unknown) (no (unknown) (unknown) Hgb 11.9 L (units (unk nown) date) (12.0-16.0) g/dL unknown) (unknown) (no (unknown) (unknown) History of (units (unk nown) date) Present Illness unknown) (unknown) (no (unknown) (unknown) IMPRESSION:? No (units (unknown) date) acute unknown) cardiopulmonary pathology. (unknown) (no (unknown) (unknown) INDICATIONS:? (units ( unknown) date) chest pain unknown) (unknown) (no (unknown) (unknown) INR (0.9-1.3) (units ( unknown) date) unknown) (unknown) (no (unknown) (unknown) INR 1.2 (0.9-1.3) (units (unknown) date) unknown) (unknown) (no (unknown) (unknown) Imaging Data (units (u nknown) date) unknown) (unknown) (no (unknown) (unknown) Initial Vital (units ( unknown) date) Signs unknown) (unknown) (no (unknown) (unknown) Initial Vital (units ( unknown) date) Signs: unknown) (unknown) (no (unknown) (unknown) Interpretation: (units (unknown) date) unknown) (unknown) (no (unknown) (unknown) [facility] (units (unknown) date) [address] unknown) [place] [address] (unknown) (no (unknown) (unknown) [facility] (units (unknown) date) unknown) (unknown) (no (unknown) (unknown) JVD. No swelling (units (unknown) date) bilateral lower unknown) extremities. (unknown) (no (unknown) (unknown) Lab Data (units (unkno wn) date) unknown) (unknown) (no (unknown) (unknown) Lab Results (units (un known) date) unknown) (unknown) (no (unknown) (unknown) Labs: (units (unkno wn) date) unknown) (unknown) (no (unknown) (unknown) Last Admin: (units (un known) date) 10/26/22 18:59 unknown) Dose: 324 mg (unknown) (no (unknown) (unknown) Last Admin: (units (un known) date) 10/26/22 19:46 unknown) Dose: 0.4 mg (unknown) (no (unknown) (unknown) Limitations: no (units (unknown) date) limitations unknown) (unknown) (no (unknown) (unknown) Lipase (23-300) (units (unknown) date) U/L unknown) (unknown) (no (unknown) (unknown) Lipase 153 (units (unk nown) date) (23-300) U/L unknown) (unknown) (no (unknown) (unknown) Lipase Stat (units (un known) date) unknown) (unknown) (no (unknown) (unknown) Loc: ED (units (unkno wn) date) unknown) (unknown) (no (unknown) (unknown) Lungs and (units (unkn own) date) pleura:? Lungs are unknown) clear.? No pleural effusions or pneumothorax.? (unknown) (no (unknown) (unknown) Lymph # (Auto) (units (unknown) date) (5809-0824) /uL unknown) (unknown) (no (unknown) (unknown) Lymph # (Auto) (units (unknown) date) 1900 (2167-9560) unknown) /uL (unknown) (no (unknown) (unknown) Lymph % (Auto) (units (unknown) date) (25-40) % unknown) (unknown) (no (unknown) (unknown) Lymph % (Auto) (units (unknown) date) 32.2 (25-40) % unknown) (unknown) (no (unknown) (unknown) MCH (26-34) PG (units (unknown) date) unknown) (unknown) (no (unknown) (unknown) MCH 29.8 (26-34) (units (unknown) date) PG unknown) (unknown) (no (unknown) (unknown) MCHC (30-36) % (units (unknown) date) unknown) (unknown) (no (unknown) (unknown) MCHC 33.1 (30-36) (units (unknown) date) % unknown) (unknown) (no (unknown) (unknown) MCV (80-100) fL (units (unknown) date) unknown) (unknown) (no (unknown) (unknown) MCV 90.0 (80-100) (units (unknown) date) fL unknown) (unknown) (no (unknown) (unknown) MDM - Chest Pain (units (unknown) date) unknown) (unknown) (no (unknown) (unknown) MDM Narrative (units ( unknown) date) unknown) (unknown) (no (unknown) (unknown) MR#: [id number] (units (unknown) date) unknown) (unknown) (no (unknown) (unknown) Magnesium (units (unkn own) date) (1.6-2.3) mg/dL unknown) (unknown) (no (unknown) (unknown) Magnesium 2.0 (units ( unknown) date) (1.6-2.3) mg/dL unknown) (unknown) (no (unknown) (unknown) Magnesium Stat (units (unknown) date) unknown) (unknown) (no (unknown) (unknown) Mediastinum:? (units ( unknown) date) Mediastinal unknown) contours appear normal.? Heart size is normal.? (unknown) (no (unknown) (unknown) Medical decision (units (unknown) date) making narrative: unknown) (unknown) (no (unknown) (unknown) Mode of arrival: (units (unknown) date) Ambulatory unknown) (unknown) (no (unknown) (unknown) [facility] # (Auto) (units ( unknown) date) (0-900) /uL unknown) (unknown) (no (unknown) (unknown) [place] [facility] # (Auto) 600 (units (unknown) date) (0-900) /uL unknown) (unknown) (no (unknown) (unknown) [place] [facility] % (Auto) (units ( unknown) date) (3-14) % unknown) (unknown) (no (unknown) (unknown) [place] [facility] % (Auto) (units ( unknown) date) 10.2 (3-14) % unknown) (unknown) (no (unknown) (unknown) NECK: Supple, (units ( unknown) date) full range of unknown) motion (unknown) (no (unknown) (unknown) NEUROLOGICAL: (units ( unknown) date) Cranial nerves II unknown) through XII grossly intact. Moving all (unknown) (no (unknown) (unknown) NSR rate of 73, (units (unknown) date) pr 144, qrs 90, unknown) Qtc 409. No acute ST changes. (unknown) (no (unknown) (unknown) Narrative (units (unkn own) date) unknown) (unknown) (no (unknown) (unknown) Neut # (Auto) (units ( unknown) date) (0132-4087) /uL unknown) (unknown) (no (unknown) (unknown) Neut # (Auto) (units ( unknown) date) 3200 (8638-1881) unknown) /uL (unknown) (no (unknown) (unknown) Neut % (Auto) (units ( unknown) date) (50-75) % unknown) (unknown) (no (unknown) (unknown) Neut % (Auto) (units ( unknown) date) 53.6 (50-75) % unknown) (unknown) (no (unknown) (unknown) Nitroglycerin (units ( unknown) date) (Nitroglycerin 0.4 unknown) Mg Sl Tab) 0.4 mg SL [id number] PRN (unknown) (no (unknown) (unknown) Ordered: (units (unkno wn) date) unknown) (unknown) (no (unknown) (unknown) Ordering (units (unkno wn) date) Provider: unknown) Vignesh Garcia D.O. (unknown) (no (unknown) (unknown) Orders (units (unkno wn) date) unknown) (unknown) (no (unknown) (unknown) Oxygen Delivery (units (unknown) date) Method 10/26/22 unknown) 17:50 (unknown) (no (unknown) (unknown) Oxygen Delivery (units (unknown) date) Method Room Air unknown) (unknown) (no (unknown) (unknown) Oxygen Delivery (units (unknown) date) Method unknown) (unknown) (no (unknown) (unknown) PRN Reason: Chest (units (unknown) date) Pain unknown) (unknown) (no (unknown) (unknown) PROCEDURE:? XR (units (unknown) date) CHEST 1V unknown) (unknown) (no (unknown) (unknown) PT (10.1-12.7) (units (unknown) date) SECONDS unknown) (unknown) (no (unknown) (unknown) PT 14.3 H (units (unkn own) date) (10.1-12.7) unknown) SECONDS (unknown) (no (unknown) (unknown) Partial (units (unkno wn) date) Thromboplastin unknown) Time Stat (unknown) (no (unknown) (unknown) Patient History (units (unknown) date) unknown) (unknown) (no (unknown) (unknown) Patient states (units (unknown) date) she is never had a unknown) stress test or cardiac catheterization. (unknown) (no (unknown) (unknown) Patient: (units (unkno wn) date) Mona Hunter MR#: unknown) [id number] (unknown) (no (unknown) (unknown) Patient: (units (unkno wn) date) Mona Hunter unknown) (unknown) (no (unknown) (unknown) Plt Count (units (unkn own) date) (150-400) X103/uL unknown) (unknown) (no (unknown) (unknown) Plt Count 284 (units ( unknown) date) (150-400) X103/uL unknown) (unknown) (no (unknown) (unknown) Potassium (units (unkn own) date) (3.4-5.1) mmol/L unknown) (unknown) (no (unknown) (unknown) Potassium 3.7 (units ( unknown) date) (3.4-5.1) mmol/L unknown) (unknown) (no (unknown) (unknown) Prior ECG (units (unkn own) date) tracings: unknown) available for review (unknown) (no (unknown) (unknown) Procedure: XR (units ( unknown) date) chest 1V unknown) (unknown) (no (unknown) (unknown) Prothrombin Time (units (unknown) date) INR Stat unknown) (unknown) (no (unknown) (unknown) Pulse Oximetry 96 (units (unknown) date) unknown) (unknown) (no (unknown) (unknown) Pulse Oximetry 97 (units (unknown) date) 96 unknown) (unknown) (no (unknown) (unknown) Pulse Oximetry 97 (units (unknown) date) unknown) (unknown) (no (unknown) (unknown) Pulse Oximetry 98 (units (unknown) date) 97 unknown) (unknown) (no (unknown) (unknown) Pulse Oximetry 98 (units (unknown) date) 98 unknown) (unknown) (no (unknown) (unknown) Pulse Oximetry 99 (units (unknown) date) 10/26/22 17:50 unknown) (unknown) (no (unknown) (unknown) Pulse Oximetry 99 (units (unknown) date) 99 99 unknown) (unknown) (no (unknown) (unknown) Pulse Oximetry (units (unknown) date) unknown) (unknown) (no (unknown) (unknown) Pulse Rate 74 72 (units (unknown) date) unknown) (unknown) (no (unknown) (unknown) Pulse Rate 78 78 (units (unknown) date) unknown) (unknown) (no (unknown) (unknown) Pulse Rate 78 80 (units (unknown) date) unknown) (unknown) (no (unknown) (unknown) Pulse Rate 78 (units ( unknown) date) unknown) (unknown) (no (unknown) (unknown) Pulse Rate 79 75 (units (unknown) date) unknown) (unknown) (no (unknown) (unknown) Pulse Rate 80 80 (units (unknown) date) unknown) (unknown) (no (unknown) (unknown) Pulse Rate 80 (units ( unknown) date) unknown) (unknown) (no (unknown) (unknown) Pulse Rate 86 (units ( unknown) date) 10/26/22 17:50 unknown) (unknown) (no (unknown) (unknown) Pulse Rate 86 78 (units (unknown) date) 81 unknown) (unknown) (no (unknown) (unknown) RBC (4.0-5.2) (units ( unknown) date) X106/uL unknown) (unknown) (no (unknown) (unknown) RBC 4.00 (units (unkno wn) date) (4.0-5.2) X106/uL unknown) (unknown) (no (unknown) (unknown) RDW (11.6-14.8) % (units (unknown) date) unknown) (unknown) (no (unknown) (unknown) RDW 14.7 (units (unkno wn) date) (11.6-14.8) % unknown) (unknown) (no (unknown) (unknown) RESPIRATORY: (units (u nknown) date) Breath sounds unknown) equal bilaterally, no wheezes rales or rhonchi. (unknown) (no (unknown) (unknown) ROS Unobtainable: (units (unknown) date) All systems unknown) reviewed + are unremarkable except as noted in HPI (unknown) (no (unknown) (unknown) Radiologist's (units ( unknown) date) Impression: unknown) (unknown) (no (unknown) (unknown) Referrals: (units (unk nown) date) unknown) (unknown) (no (unknown) (unknown) Related Data (units (u nknown) date) unknown) (unknown) (no (unknown) (unknown) Respiratory Rate (units (unknown) date) 18 10/26/22 17:50 unknown) (unknown) (no (unknown) (unknown) Respiratory Rate (units (unknown) date) 18 unknown) (unknown) (no (unknown) (unknown) Respiratory Rate (units (unknown) date) 19 24 unknown) (unknown) (no (unknown) (unknown) Respiratory Rate (units (unknown) date) 20 19 unknown) (unknown) (no (unknown) (unknown) Respiratory Rate (units (unknown) date) 21 35 H unknown) (unknown) (no (unknown) (unknown) Respiratory Rate (units (unknown) date) 23 28 H unknown) (unknown) (no (unknown) (unknown) Respiratory Rate (units (unknown) date) 23 unknown) (unknown) (no (unknown) (unknown) Respiratory Rate (units (unknown) date) unknown) (unknown) (no (unknown) (unknown) Result diagrams: (units (unknown) date) unknown) (unknown) (no (unknown) (unknown) Review of Systems (units (unknown) date) unknown) (unknown) (no (unknown) (unknown) SARS-CoV-2 (PCR) (units (unknown) date) (Negative) unknown) (unknown) (no (unknown) (unknown) SARS-CoV-2 (PCR) (units (unknown) date) Negative unknown) (Negative) (unknown) (no (unknown) (unknown) SKIN: Warm, dry, (units (unknown) date) no petechiae, no unknown) rashes or lesions. (unknown) (no (unknown) (unknown) Signed By: (units (unk nown) date) unknown) (unknown) (no (unknown) (unknown) Signed (units (unkno wn) date) unknown) (unknown) (no (unknown) (unknown) Sinus rhythm rate (units (unknown) date) of 79 CA 138 QRS unknown) of 94 QTC 415. No acute ST elevation or (unknown) (no (unknown) (unknown) Smoking Status: (units (unknown) date) Current every day unknown) smoker (unknown) (no (unknown) (unknown) Social History (units (unknown) date) (Reviewed 10/26/22 unknown) @ 19:36 by Ruthy Vance DO) (unknown) (no (unknown) (unknown) Sodium (137-145) (units (unknown) date) mmol/L unknown) (unknown) (no (unknown) (unknown) Sodium 141 (units (unk nown) date) (137-145) mmol/L unknown) (unknown) (no (unknown) (unknown) Source: patient (units (unknown) date) unknown) (unknown) (no (unknown) (unknown) Stated Complaint: (units (unknown) date) Chest pain, unknown) squeezing, light headed, 'not right' (unknown) (no (unknown) (unknown) States she is (units ( unknown) date) allergic to sulfa unknown) tetracycline. She does smoke tobacco, denies (unknown) (no (unknown) (unknown) Stop: 10/26/22 (units (unknown) date) 17:57 unknown) (unknown) (no (unknown) (unknown) Substance Use (units ( unknown) date) Type: does not use unknown) (unknown) (no (unknown) (unknown) Sulfa (units (unkno wn) date) (Sulfonamide unknown) Allergy Redness of Verified 10/26/22 17:50 (unknown) (no (unknown) (unknown) Surgical changes (units (unknown) date) and devices:? unknown) None.? (unknown) (no (unknown) (unknown) TECHNIQUE:? One (units (unknown) date) view of the chest unknown) was acquired.? (unknown) (no (unknown) (unknown) Temperature 98.1 (units (unknown) date) F 10/26/22 17:50 unknown) (unknown) (no (unknown) (unknown) Temperature 98.1 (units (unknown) date) F unknown) (unknown) (no (unknown) (unknown) Temperature (units (un known) date) unknown) (unknown) (no (unknown) (unknown) This is a (units (unkno wn) date) 62-year-old female unknown) with history of factor 8 elevation, 3 prior strokes (unknown) (no (unknown) (unknown) This is a (units (unkn own) date) 62-year-old female unknown) with history of hypertension, diabetes, factor 8 (unknown) (no (unknown) (unknown) Time Seen by (units (u nknown) date) Provider: 10/26/22 unknown) 19:14 (unknown) (no (unknown) (unknown) Total Bilirubin (units (unknown) date) (0.2-1.3) mg/dL unknown) (unknown) (no (unknown) (unknown) Total Bilirubin (units (unknown) date) 0.9 (0.2-1.3) unknown) mg/dL (unknown) (no (unknown) (unknown) Total Creatine (units (unknown) date) Kinase (30-135) unknown) U/L (unknown) (no (unknown) (unknown) Total Creatine (units (unknown) date) Kinase 143 H unknown) (30-135) U/L (unknown) (no (unknown) (unknown) Total Protein (units ( unknown) date) (6.3-8.2) g/dL unknown) (unknown) (no (unknown) (unknown) Total Protein 7.9 (units (unknown) date) (6.3-8.2) g/dL unknown) (unknown) (no (unknown) (unknown) Trop I [Troponin (units (unknown) date) I] Stat unknown) (unknown) (no (unknown) (unknown) Troponin + CK (units ( unknown) date) Cardiac Panel Stat unknown) (unknown) (no (unknown) (unknown) Troponin I < (units (u nknown) date) 0.012 < 0.012 unknown) (0.01-0.034) ng/mL (unknown) (no (unknown) (unknown) Troponin I (units (unk nown) date) (0.01-0.034) ng/mL unknown) (unknown) (no (unknown) (unknown) Friday. (units (unkno wn) date) unknown) (unknown) (no (unknown) (unknown) US abdomen (units (unk nown) date) complete Stat unknown) (unknown) (no (unknown) (unknown) Ur Culture (units (unk nown) date) Indicated? Cult unknown) not indicated (unknown) (no (unknown) (unknown) Ur Culture (units (unk nown) date) Indicated? unknown) (unknown) (no (unknown) (unknown) Urine Bacteria (units (unknown) date) (None) unknown) (unknown) (no (unknown) (unknown) Urine Bacteria (units (unknown) date) None seen (None) unknown) (unknown) (no (unknown) (unknown) Urine Dip (units (unkn own) date) unknown) (unknown) (no (unknown) (unknown) Urine Microscopic (units (unknown) date) Stat unknown) (unknown) (no (unknown) (unknown) Urine RBC (units (unkn own) date) (0-5/HPF) unknown) (unknown) (no (unknown) (unknown) Urine RBC None (units (unknown) date) seen (0-5/HPF) unknown) (unknown) (no (unknown) (unknown) Urine Specific (units (unknown) date) Ophelia 1.015 unknown) (unknown) (no (unknown) (unknown) Urine WBC (units (unkn own) date) (0-5/HPF) unknown) (unknown) (no (unknown) (unknown) Urine WBC 0-1/hpf (units (unknown) date) (0-5/HPF) unknown) (unknown) (no (unknown) (unknown) Vital Signs - 8 (units (unknown) date) hr unknown) (unknown) (no (unknown) (unknown) Vital Signs (units (un known) date) unknown) (unknown) (no (unknown) (unknown) Vital signs: (units (u nknown) date) unknown) (unknown) (no (unknown) (unknown) WBC (4.5-11.0) (units (unknown) date) X103/uL unknown) (unknown) (no (unknown) (unknown) WBC 5.9 (units (unkno wn) date) (4.5-11.0) X103/uL unknown) (unknown) (no (unknown) (unknown) XR chest 1V Stat (units (unknown) date) unknown) (unknown) (no (unknown) (unknown) XRay Report (units (un known) date) unknown) (unknown) (no (unknown) (unknown) [Embedded Image (units (unknown) date) Not Available] unknown) (unknown) (no (unknown) (unknown) alcohol intake (units (unknown) date) frequency: 0-2 unknown) drinks per day (unknown) (no (unknown) (unknown) alcohol, denies (units (unknown) date) illicit. Primary unknown) care is Dr. Dey she has not appointment on (unknown) (no (unknown) (unknown) also notes she is (units (unknown) date) had left flank unknown) pain for the past week she states she has a (unknown) (no (unknown) (unknown) and below (units (unkn own) date) unknown) (unknown) (no (unknown) (unknown) appear (units (unkno wn) date) unknown) (unknown) (no (unknown) (unknown) been constipated. (units (unknown) date) She states in unknown) terms of surgeries she is had lithotripsies, (unknown) (no (unknown) (unknown) depression noted. (units (unknown) date) Patient has prior unknown) from 03/30/2022 with no acute changes. (unknown) (no (unknown) (unknown) describes (units (unkn own) date) intermittent unknown) rating her jaw and left arm. She felt dizzy during these (unknown) (no (unknown) (unknown) diabetes, (units (unkn own) date) hypertension unknown) dyslipidemia and prior kidney stones. 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 Lipase (unknown) (no (unknown) (unknown) episodes and felt (units (unknown) date) short of breath unknown) during episodes they resolved on their own she (unknown) (no (unknown) (unknown) extremities (units (un known) date) unknown) (unknown) (no (unknown) (unknown) guarding or (units (un known) date) rebound, rigidity, unknown) no mass (unknown) (no (unknown) (unknown) history of kidney (units (unknown) date) stones feels unknown) similar. Patient denies dysuria frequency or (unknown) (no (unknown) (unknown) in her chest. (units ( unknown) date) Patient states she unknown) has not had similar symptoms in the past. She (unknown) (no (unknown) (unknown) intact (units (unkno wn) date) unknown) (unknown) (no (unknown) (unknown) is had an (units (unkn own) date) intermittently. unknown) She is had nausea when she has a squeezing sensation (unknown) (no (unknown) (unknown) is negative and (units (unknown) date) bilirubins normal. unknown) (unknown) (no (unknown) (unknown) major changes. (units (unknown) date) Creatinine appears unknown) stable from her baseline, she does have an (unknown) (no (unknown) (unknown) moist mucous (units (u nknown) date) membranes unknown) (unknown) (no (unknown) (unknown) of left chest (units ( unknown) date) pain squeezing unknown) radiating to her jaw arm intermittent. Has (unknown) (no (unknown) (unknown) on Eliquis, CKD (units (unknown) date) stage 3, Crohn's unknown) disease, diverticulitis, diet-controlled (unknown) (no (unknown) (unknown) resolved at this (units (unknown) date) time she also unknown) notes a little bit of left flank pain. Patient (unknown) (no (unknown) (unknown) tobacco type: (units ( unknown) date) cigarettes unknown) (unknown) (no (unknown) (unknown) unremarkable.? (units (unknown) date) unknown) (unknown) (no (unknown) (unknown) ureteral stents, (units (unknown) date) x3 with unknown) a complete hysterectomy for endometriosis. (unknown) (no (unknown) (unknown) urgency she (units (un known) date) states it has been unknown) a little bit more difficult to urinate. She is (unknown) (no (unknown) (unknown) woke up from a (units (unknown) date) nap at about 1300 unknown) day had left-sided chest squeezing which he Result panel 154 (unknown) (no (unknown) (unknown) (no value) (units (unk nown) date) unknown) (unknown) (no (unknown) (unknown) 10/26/22 10/26/22 (units (unknown) date) 10/26/22 unknown) Range/Units (unknown) (no (unknown) (unknown) 10/26/22 16:47 (units (unknown) date) unknown) (unknown) (no (unknown) (unknown) 10/26/22 17:56 (units (unknown) date) unknown) (unknown) (no (unknown) (unknown) 10/26/22 18:00 (units (unknown) date) unknown) (unknown) (no (unknown) (unknown) 10/26/22 18:20 (units (unknown) date) unknown) (unknown) (no (unknown) (unknown) 10/26/22 18:30 (units (unknown) date) unknown) (unknown) (no (unknown) (unknown) 10/26/22 19:32 (units (unknown) date) unknown) (unknown) (no (unknown) (unknown) 10/26/22 20:20 (units (unknown) date) unknown) (unknown) (no (unknown) (unknown) 10/26/22 (units (unkno wn) date) unknown) (unknown) (no (unknown) (unknown) 0924 (units (unkno wn) date) unknown) (unknown) (no (unknown) (unknown) [address] [place] [address] (units (unknown) date) unknown) (unknown) (no (unknown) (unknown) 16:47 18:00 18:00 (units (unknown) date) unknown) (unknown) (no (unknown) (unknown) 17:50 10/26/22 (units (unknown) date) unknown) (unknown) (no (unknown) (unknown) 18:00 18:30 20:20 (units (unknown) date) unknown) (unknown) (no (unknown) (unknown) 18:01 10/26/22 (units (unknown) date) unknown) (unknown) (no (unknown) (unknown) 18:03 10/26/22 (units (unknown) date) unknown) (unknown) (no (unknown) (unknown) 18:03 (units (unkno wn) date) unknown) (unknown) (no (unknown) (unknown) 18:30 10/26/22 (units (unknown) date) unknown) (unknown) (no (unknown) (unknown) 18:31 10/26/22 (units (unknown) date) unknown) (unknown) (no (unknown) (unknown) 18:31 (units (unkno wn) date) unknown) (unknown) (no (unknown) (unknown) 19:00 10/26/22 (units (unknown) date) unknown) (unknown) (no (unknown) (unknown) 19:00 (units (unkno wn) date) unknown) (unknown) (no (unknown) (unknown) 19:30 10/26/22 (units (unknown) date) unknown) (unknown) (no (unknown) (unknown) 19:30 (units (unkno wn) date) unknown) (unknown) (no (unknown) (unknown) 19:44 10/26/22 (units (unknown) date) unknown) (unknown) (no (unknown) (unknown) 19:44 (units (unkno wn) date) unknown) (unknown) (no (unknown) (unknown) 19:46 10/26/22 (units (unknown) date) unknown) (unknown) (no (unknown) (unknown) 19:49 10/26/22 (units (unknown) date) unknown) (unknown) (no (unknown) (unknown) 19:51 10/26/22 (units (unknown) date) unknown) (unknown) (no (unknown) (unknown) 20:00 10/26/22 (units (unknown) date) unknown) (unknown) (no (unknown) (unknown) 20:00 (units (unkno wn) date) unknown) (unknown) (no (unknown) (unknown) 20:30 10/26/22 (units (unknown) date) unknown) (unknown) (no (unknown) (unknown) 20:30 (units (unkno wn) date) unknown) (unknown) (no (unknown) (unknown) 21:00 10/26/22 (units (unknown) date) unknown) (unknown) (no (unknown) (unknown) 21:01 10/26/22 (units (unknown) date) unknown) (unknown) (no (unknown) (unknown) 21:01 (units (unkno wn) date) unknown) (unknown) (no (unknown) (unknown) ? (units (unkno wn) date) unknown) (unknown) (no (unknown) (unknown) ABDOMEN: Soft, (units (unknown) date) nontender. unknown) Normoactive bowel sounds all 4 quadrants. No (unknown) (no (unknown) (unknown) ALT (<35) IU/L (units (unknown) date) unknown) (unknown) (no (unknown) (unknown) ALT 375 H (<35) (units (unknown) date) IU/L unknown) (unknown) (no (unknown) (unknown) APTT (26-36) (units (u nknown) date) SECONDS unknown) (unknown) (no (unknown) (unknown) APTT 38 H (26-36) (units (unknown) date) SECONDS unknown) (unknown) (no (unknown) (unknown) AST (14-36) IU/L (units (unknown) date) unknown) (unknown) (no (unknown) (unknown) AST 263 H (14-36) (units (unknown) date) IU/L unknown) (unknown) (no (unknown) (unknown) Accession Number: (units (unknown) date) [id number] ?? unknown) (unknown) (no (unknown) (unknown) Acct:[id number] (units (unknown) date) unknown) (unknown) (no (unknown) (unknown) Age/Sex: 62 / F (units (unknown) date) unknown) (unknown) (no (unknown) (unknown) Alkaline (units (unkno wn) date) Phosphatase unknown) (38-126) U/L (unknown) (no (unknown) (unknown) Alkaline (units (unkno wn) date) Phosphatase 424 H unknown) (38-126) U/L (unknown) (no (unknown) (unknown) Allergies (units (unkn own) date) unknown) (unknown) (no (unknown) (unknown) Allergy/AdvReac (units (unknown) date) Type Severity unknown) Reaction Status Date / Time (unknown) (no (unknown) (unknown) [place], [place] (units ( unknown) date) [address] unknown) (unknown) (no (unknown) (unknown) Antibiotics) Skin (units (unknown) date) unknown) (unknown) (no (unknown) (unknown) Approved by: Robert Rossunits (unknown) date) Ana Maria Arriaga on unknown) 10/26/2022 at 18:42?? (unknown) (no (unknown) (unknown) Aspirin (Aspirin (units (unknown) date) 81 Mg Chew Tab) unknown) 324 mg PO NOW ONE (unknown) (no (unknown) (unknown) Attestation: I (units (unknown) date) personally unknown) reviewed and interpreted this ECG as follows: (unknown) (no (unknown) (unknown) BUN (7-17) mg/dL (units (unknown) date) unknown) (unknown) (no (unknown) (unknown) BUN 23 H (7-17) (units (unknown) date) mg/dL unknown) (unknown) (no (unknown) (unknown) BUN/Creatinine (units (unknown) date) Ratio (6-22) unknown) (unknown) (no (unknown) (unknown) BUN/Creatinine (units (unknown) date) Ratio 13.9 (6-22) unknown) (unknown) (no (unknown) (unknown) Baso # (Auto) (units ( unknown) date) (0-100) /uL unknown) (unknown) (no (unknown) (unknown) Baso # (Auto) 100 (units (unknown) date) (0-100) /uL unknown) (unknown) (no (unknown) (unknown) Baso % (Auto) (units ( unknown) date) (0-2) % unknown) (unknown) (no (unknown) (unknown) Baso % (Auto) 0.9 (units (unknown) date) (0-2) % unknown) (unknown) (no (unknown) (unknown) Bedside Urine (units ( unknown) date) Bilirubin - unknown) Negative (unknown) (no (unknown) (unknown) Bedside Urine (units ( unknown) date) Glucose Negative unknown) (unknown) (no (unknown) (unknown) Bedside Urine (units ( unknown) date) Ketone - Negative unknown) (unknown) (no (unknown) (unknown) Bedside Urine (units ( unknown) date) Leukocytes - unknown) Negative (unknown) (no (unknown) (unknown) Bedside Urine (units ( unknown) date) Nitrite - Negative unknown) (unknown) (no (unknown) (unknown) Bedside Urine (units ( unknown) date) Occult Blood +/ unknown) (unknown) (no (unknown) (unknown) Bedside Urine (units ( unknown) date) Protein - Negative unknown) (unknown) (no (unknown) (unknown) Bedside Urine (units ( unknown) date) Urobilinogen - unknown) Negative (unknown) (no (unknown) (unknown) Bedside Urine pH (units (unknown) date) 6.0 unknown) (unknown) (no (unknown) (unknown) Blood Pressure (units (unknown) date) 121/62 unknown) (unknown) (no (unknown) (unknown) Blood Pressure (units (unknown) date) 127/59 L unknown) (unknown) (no (unknown) (unknown) Blood Pressure (units (unknown) date) 137/97 H unknown) (unknown) (no (unknown) (unknown) Blood Pressure (units (unknown) date) 143/65 H 144/67 H unknown) (unknown) (no (unknown) (unknown) Blood Pressure (units (unknown) date) 151/68 H 10/26/22 unknown) 17:50 (unknown) (no (unknown) (unknown) Blood Pressure (units (unknown) date) 151/68 H unknown) (unknown) (no (unknown) (unknown) Blood Pressure (units (unknown) date) 152/74 H 143/65 H unknown) 162/78 H (unknown) (no (unknown) (unknown) Blood Pressure (units (unknown) date) 152/74 H unknown) (unknown) (no (unknown) (unknown) Blood Pressure (units (unknown) date) 164/72 H 138/62 unknown) (unknown) (no (unknown) (unknown) Bones and chest (units (unknown) date) wall:? No unknown) suspicious bony lesions.? Overlying soft tissues (unknown) (no (unknown) (unknown) CARDIOVASCULAR: (units (unknown) date) Regular rate and unknown) rhythm without murmurs, rubs or gallops. No (unknown) (no (unknown) (unknown) CK-MB (CK-2) (units (u nknown) date) (<2.37) ng/mL unknown) (unknown) (no (unknown) (unknown) CK-MB (CK-2) 0.73 (units (unknown) date) (<2.37) ng/mL unknown) (unknown) (no (unknown) (unknown) CK-MB (CK-2) Rel (units (unknown) date) Index (1.5-5.0) % unknown) (unknown) (no (unknown) (unknown) CK-MB (CK-2) Rel (units (unknown) date) Index 0.5 L unknown) (1.5-5.0) % (unknown) (no (unknown) (unknown) COMPARISON:? (units (u nknown) date) [facility], unknown) CR, XR CHEST 1V, 03/30/2022, 18:39. (unknown) (no (unknown) (unknown) COVID19 -Nasal (units (unknown) date) RAPID/Pre-Proc unknown) Stat (unknown) (no (unknown) (unknown) Calcium (units (unkno wn) date) (8.4-10.2) mg/dL unknown) (unknown) (no (unknown) (unknown) Calcium 9.5 (units (un known) date) (8.4-10.2) mg/dL unknown) (unknown) (no (unknown) (unknown) Carbon Dioxide (units (unknown) date) (22-32) mmol/L unknown) (unknown) (no (unknown) (unknown) Carbon Dioxide 30 (units (unknown) date) (22-32) mmol/L unknown) (unknown) (no (unknown) (unknown) Chest x-ray: (units (u nknown) date) unknown) (unknown) (no (unknown) (unknown) Chief Complaint: (units (unknown) date) Chest Pain unknown) (unknown) (no (unknown) (unknown) Chloride (98-107) (units (unknown) date) mmol/L unknown) (unknown) (no (unknown) (unknown) Chloride 101 (units (u nknown) date) (98-107) mmol/L unknown) (unknown) (no (unknown) (unknown) Complete Blood (units (unknown) date) Count AUTO DIFF unknown) Stat (unknown) (no (unknown) (unknown) Comprehensive (units ( unknown) date) Metabolic Panel unknown) Stat (unknown) (no (unknown) (unknown) Consultation #1: (units (unknown) date) unknown) (unknown) (no (unknown) (unknown) Consultations (units ( unknown) date) unknown) (unknown) (no (unknown) (unknown) Course (units (unkno wn) date) unknown) (unknown) (no (unknown) (unknown) Creatinine (units (unk nown) date) (0.52-1.04) mg/dL unknown) (unknown) (no (unknown) (unknown) Creatinine 1.66 H (units (unknown) date) (0.52-1.04) mg/dL unknown) (unknown) (no (unknown) (unknown) : 1960 (units (unknown) date) Acct:[id number] unknown) (unknown) (no (unknown) (unknown) : 1960 (units (unknown) date) unknown) (unknown) (no (unknown) (unknown) Date of Service: (units (unknown) date) 10/26/22 unknown) (unknown) (no (unknown) (unknown) Departure (units (unkn own) date) unknown) (unknown) (no (unknown) (unknown) Dictated by: Robert (units (unknown) date) Ana Maria Arriaga on unknown) 10/26/2022 at 18:40 ? ? (unknown) (no (unknown) (unknown) Discharge Plan (units (unknown) date) unknown) (unknown) (no (unknown) (unknown) Discontinued (units (u nknown) date) Medications unknown) (unknown) (no (unknown) (unknown) Documented By: BS (units (unknown) date) unknown) (unknown) (no (unknown) (unknown) Documented By: (units (unknown) date) JO unknown) (unknown) (no (unknown) (unknown) Dr. Kearney, (units ( unknown) date) recommends testing unknown) hospital for chest pain repeat labs in the (unknown) (no (unknown) (unknown) ECG Data (units (unkno wn) date) unknown) (unknown) (no (unknown) (unknown) ED Orders (units (unkn own) date) unknown) (unknown) (no (unknown) (unknown) EKG-12 Lead Stat (units (unknown) date) unknown) (unknown) (no (unknown) (unknown) ER Physician: (units ( unknown) date) Mank,Ruthy C D.O. unknown) (unknown) (no (unknown) (unknown) EXTREMITIES: (units (u nknown) date) Normal range of unknown) motion, no clubbing or edema. Neurovascularly (unknown) (no (unknown) (unknown) Emergency Report (units (unknown) date) unknown) (unknown) (no (unknown) (unknown) Eos # (Auto) (units (u nknown) date) (0-450) /uL unknown) (unknown) (no (unknown) (unknown) Eos # (Auto) 200 (units (unknown) date) (0-450) /uL unknown) (unknown) (no (unknown) (unknown) Eos % (Auto) (units (u nknown) date) (2-4) % unknown) (unknown) (no (unknown) (unknown) Eos % (Auto) 3.1 (units (unknown) date) (2-4) % unknown) (unknown) (no (unknown) (unknown) Esterase (units (unkno wn) date) unknown) (unknown) (no (unknown) (unknown) Estimated GFR (units ( unknown) date) (>60) mL/min unknown) (unknown) (no (unknown) (unknown) Estimated GFR 35 (units (unknown) date) L (>60) mL/min unknown) (unknown) (no (unknown) (unknown) Exam Narrative: (units (unknown) date) unknown) (unknown) (no (unknown) (unknown) Exam (units (unkno wn) date) unknown) (unknown) (no (unknown) (unknown) FINDINGS:? (units (unk nown) date) unknown) (unknown) (no (unknown) (unknown) Arcenio Dey (units (unk nown) date) MD Madhav unknown) [Primary Care Provider] (unknown) (no (unknown) (unknown) GENERAL: Alert (units (unknown) date) and oriented x unknown) three, female in mild distress. (unknown) (no (unknown) (unknown) : No CVA (units (unk nown) date) tenderness unknown) (unknown) (no (unknown) (unknown) General (units (unkno wn) date) unknown) (unknown) (no (unknown) (unknown) Glucose (80-110) (units (unknown) date) mg/dL unknown) (unknown) (no (unknown) (unknown) Glucose 95 (units (unk nown) date) (80-110) mg/dL unknown) (unknown) (no (unknown) (unknown) HEENT: Head (units (un known) date) normocephalic, unknown) atraumatic, EOMI, pupils reactive, face symmetric, (unknown) (no (unknown) (unknown) HPI - Chest Pain (units (unknown) date) unknown) (unknown) (no (unknown) (unknown) HPI narrative: (units (unknown) date) unknown) (unknown) (no (unknown) (unknown) Hct (36-46) % (units ( unknown) date) unknown) (unknown) (no (unknown) (unknown) Hct 36.0 (36-46) (units (unknown) date) % unknown) (unknown) (no (unknown) (unknown) Hgb (12.0-16.0) (units (unknown) date) g/dL unknown) (unknown) (no (unknown) (unknown) Hgb 11.9 L (units (unk nown) date) (12.0-16.0) g/dL unknown) (unknown) (no (unknown) (unknown) History of (units (unk nown) date) Present Illness unknown) (unknown) (no (unknown) (unknown) IMPRESSION:? No (units (unknown) date) acute unknown) cardiopulmonary pathology. (unknown) (no (unknown) (unknown) INDICATIONS:? (units ( unknown) date) chest pain unknown) (unknown) (no (unknown) (unknown) INR (0.9-1.3) (units ( unknown) date) unknown) (unknown) (no (unknown) (unknown) INR 1.2 (0.9-1.3) (units (unknown) date) unknown) (unknown) (no (unknown) (unknown) Imaging Data (units (u nknown) date) unknown) (unknown) (no (unknown) (unknown) Initial Vital (units ( unknown) date) Signs unknown) (unknown) (no (unknown) (unknown) Initial Vital (units ( unknown) date) Signs: unknown) (unknown) (no (unknown) (unknown) Interpretation: (units (unknown) date) unknown) (unknown) (no (unknown) (unknown) [facility] (units (unknown) date) [address] unknown) [place] [address] (unknown) (no (unknown) (unknown) [facility] (units (unknown) date) unknown) (unknown) (no (unknown) (unknown) JVD. No swelling (units (unknown) date) bilateral lower unknown) extremities. (unknown) (no (unknown) (unknown) Lab Data (units (unkno wn) date) unknown) (unknown) (no (unknown) (unknown) Lab Results (units (un known) date) unknown) (unknown) (no (unknown) (unknown) Labs: (units (unkno wn) date) unknown) (unknown) (no (unknown) (unknown) Last Admin: (units (un known) date) 10/26/22 18:59 unknown) Dose: 324 mg (unknown) (no (unknown) (unknown) Last Admin: (units (un known) date) 10/26/22 19:46 unknown) Dose: 0.4 mg (unknown) (no (unknown) (unknown) Limitations: no (units (unknown) date) limitations unknown) (unknown) (no (unknown) (unknown) Lipase (23-300) (units (unknown) date) U/L unknown) (unknown) (no (unknown) (unknown) Lipase 153 (units (unk nown) date) (23-300) U/L unknown) (unknown) (no (unknown) (unknown) Lipase Stat (units (un known) date) unknown) (unknown) (no (unknown) (unknown) Loc: ED (units (unkno wn) date) unknown) (unknown) (no (unknown) (unknown) Lungs and (units (unkn own) date) pleura:? Lungs are unknown) clear.? No pleural effusions or pneumothorax.? (unknown) (no (unknown) (unknown) Lymph # (Auto) (units (unknown) date) ([id number]) /uL unknown) (unknown) (no (unknown) (unknown) Lymph # (Auto) (units (unknown) date) 1900 ([id number]) unknown) /uL (unknown) (no (unknown) (unknown) Lymph % (Auto) (units (unknown) date) (25-40) % unknown) (unknown) (no (unknown) (unknown) Lymph % (Auto) (units (unknown) date) 32.2 (25-40) % unknown) (unknown) (no (unknown) (unknown) MCH (26-34) PG (units (unknown) date) unknown) (unknown) (no (unknown) (unknown) MCH 29.8 (26-34) (units (unknown) date) PG unknown) (unknown) (no (unknown) (unknown) MCHC (30-36) % (units (unknown) date) unknown) (unknown) (no (unknown) (unknown) MCHC 33.1 (30-36) (units (unknown) date) % unknown) (unknown) (no (unknown) (unknown) MCV (80-100) fL (units (unknown) date) unknown) (unknown) (no (unknown) (unknown) MCV 90.0 (80-100) (units (unknown) date) fL unknown) (unknown) (no (unknown) (unknown) MDM - Chest Pain (units (unknown) date) unknown) (unknown) (no (unknown) (unknown) MDM Narrative (units ( unknown) date) unknown) (unknown) (no (unknown) (unknown) MR#: [id number] (units (unknown) date) unknown) (unknown) (no (unknown) (unknown) Magnesium (units (unkn own) date) (1.6-2.3) mg/dL unknown) (unknown) (no (unknown) (unknown) Magnesium 2.0 (units ( unknown) date) (1.6-2.3) mg/dL unknown) (unknown) (no (unknown) (unknown) Magnesium Stat (units (unknown) date) unknown) (unknown) (no (unknown) (unknown) Mediastinum:? (units ( unknown) date) Mediastinal unknown) contours appear normal.? Heart size is normal.? (unknown) (no (unknown) (unknown) Medical decision (units (unknown) date) making narrative: unknown) (unknown) (no (unknown) (unknown) Mode of arrival: (units (unknown) date) Ambulatory unknown) (unknown) (no (unknown) (unknown) [place] # (Auto) (units ( unknown) date) (0-900) /uL unknown) (unknown) (no (unknown) (unknown) [place] # (Auto) 600 (units (unknown) date) (0-900) /uL unknown) (unknown) (no (unknown) (unknown) [place] % (Auto) (units ( unknown) date) (3-14) % unknown) (unknown) (no (unknown) (unknown) [place] % (Auto) (units ( unknown) date) 10.2 (3-14) % unknown) (unknown) (no (unknown) (unknown) NECK: Supple, (units ( unknown) date) full range of unknown) motion (unknown) (no (unknown) (unknown) NEUROLOGICAL: (units ( unknown) date) Cranial nerves II unknown) through XII grossly intact. Moving all (unknown) (no (unknown) (unknown) NSR rate of 73, (units (unknown) date) pr 144, qrs 90, unknown) Qtc 409. No acute ST changes. (unknown) (no (unknown) (unknown) Narrative (units (unkn own) date) unknown) (unknown) (no (unknown) (unknown) Neut # (Auto) (units ( unknown) date) (6299-4852) /uL unknown) (unknown) (no (unknown) (unknown) Neut # (Auto) (units ( unknown) date) 3200 (6991-4009) unknown) /uL (unknown) (no (unknown) (unknown) Neut % (Auto) (units ( unknown) date) (50-75) % unknown) (unknown) (no (unknown) (unknown) Neut % (Auto) (units ( unknown) date) 53.6 (50-75) % unknown) (unknown) (no (unknown) (unknown) Nitroglycerin (units ( unknown) date) (Nitroglycerin 0.4 unknown) Mg Sl Tab) 0.4 mg SL [id number] PRN (unknown) (no (unknown) (unknown) Ordered: (units (unkno wn) date) unknown) (unknown) (no (unknown) (unknown) Ordering (units (unkno wn) date) Provider: unknown) Vignesh Garcia D.O. (unknown) (no (unknown) (unknown) Orders (units (unkno wn) date) unknown) (unknown) (no (unknown) (unknown) Oxygen Delivery (units (unknown) date) Method 10/26/22 unknown) 17:50 (unknown) (no (unknown) (unknown) Oxygen Delivery (units (unknown) date) Method Room Air unknown) (unknown) (no (unknown) (unknown) Oxygen Delivery (units (unknown) date) Method unknown) (unknown) (no (unknown) (unknown) PRN Reason: Chest (units (unknown) date) Pain unknown) (unknown) (no (unknown) (unknown) PROCEDURE:? XR (units (unknown) date) CHEST 1V unknown) (unknown) (no (unknown) (unknown) PT (10.1-12.7) (units (unknown) date) SECONDS unknown) (unknown) (no (unknown) (unknown) PT 14.3 H (units (unkn own) date) (10.1-12.7) unknown) SECONDS (unknown) (no (unknown) (unknown) Partial (units (unkno wn) date) Thromboplastin unknown) Time Stat (unknown) (no (unknown) (unknown) Patient History (units (unknown) date) unknown) (unknown) (no (unknown) (unknown) Patient states (units (unknown) date) she is never had a unknown) stress test or cardiac catheterization. (unknown) (no (unknown) (unknown) Patient: (units (unkno wn) date) Mona Hunter MR#: unknown) [id number] (unknown) (no (unknown) (unknown) Patient: (units (unkno wn) date) Mona Hunter unknown) (unknown) (no (unknown) (unknown) Plt Count (units (unkn own) date) (150-400) X103/uL unknown) (unknown) (no (unknown) (unknown) Plt Count 284 (units ( unknown) date) (150-400) X103/uL unknown) (unknown) (no (unknown) (unknown) Potassium (units (unkn own) date) (3.4-5.1) mmol/L unknown) (unknown) (no (unknown) (unknown) Potassium 3.7 (units ( unknown) date) (3.4-5.1) mmol/L unknown) (unknown) (no (unknown) (unknown) Prior ECG (units (unkn own) date) tracings: unknown) available for review (unknown) (no (unknown) (unknown) Procedure: XR (units ( unknown) date) chest 1V unknown) (unknown) (no (unknown) (unknown) Prothrombin Time (units (unknown) date) INR Stat unknown) (unknown) (no (unknown) (unknown) Pulse Oximetry 96 (units (unknown) date) unknown) (unknown) (no (unknown) (unknown) Pulse Oximetry 97 (units (unknown) date) 96 unknown) (unknown) (no (unknown) (unknown) Pulse Oximetry 97 (units (unknown) date) unknown) (unknown) (no (unknown) (unknown) Pulse Oximetry 98 (units (unknown) date) 97 unknown) (unknown) (no (unknown) (unknown) Pulse Oximetry 98 (units (unknown) date) 98 unknown) (unknown) (no (unknown) (unknown) Pulse Oximetry 99 (units (unknown) date) 10/26/22 17:50 unknown) (unknown) (no (unknown) (unknown) Pulse Oximetry 99 (units (unknown) date) 99 99 unknown) (unknown) (no (unknown) (unknown) Pulse Oximetry (units (unknown) date) unknown) (unknown) (no (unknown) (unknown) Pulse Rate 74 72 (units (unknown) date) unknown) (unknown) (no (unknown) (unknown) Pulse Rate 78 78 (units (unknown) date) unknown) (unknown) (no (unknown) (unknown) Pulse Rate 78 80 (units (unknown) date) unknown) (unknown) (no (unknown) (unknown) Pulse Rate 78 (units ( unknown) date) unknown) (unknown) (no (unknown) (unknown) Pulse Rate 79 75 (units (unknown) date) unknown) (unknown) (no (unknown) (unknown) Pulse Rate 80 80 (units (unknown) date) unknown) (unknown) (no (unknown) (unknown) Pulse Rate 80 (units ( unknown) date) unknown) (unknown) (no (unknown) (unknown) Pulse Rate 86 (units ( unknown) date) 10/26/22 17:50 unknown) (unknown) (no (unknown) (unknown) Pulse Rate 86 78 (units (unknown) date) 81 unknown) (unknown) (no (unknown) (unknown) RBC (4.0-5.2) (units ( unknown) date) X106/uL unknown) (unknown) (no (unknown) (unknown) RBC 4.00 (units (unkno wn) date) (4.0-5.2) X106/uL unknown) (unknown) (no (unknown) (unknown) RDW (11.6-14.8) % (units (unknown) date) unknown) (unknown) (no (unknown) (unknown) RDW 14.7 (units (unkno wn) date) (11.6-14.8) % unknown) (unknown) (no (unknown) (unknown) RESPIRATORY: (units (u nknown) date) Breath sounds unknown) equal bilaterally, no wheezes rales or rhonchi. (unknown) (no (unknown) (unknown) ROS Unobtainable: (units (unknown) date) All systems unknown) reviewed + are unremarkable except as noted in HPI (unknown) (no (unknown) (unknown) Radiologist's (units ( unknown) date) Impression: unknown) (unknown) (no (unknown) (unknown) Referrals: (units (unk nown) date) unknown) (unknown) (no (unknown) (unknown) Related Data (units (u nknown) date) unknown) (unknown) (no (unknown) (unknown) Respiratory Rate (units (unknown) date) 18 10/26/22 17:50 unknown) (unknown) (no (unknown) (unknown) Respiratory Rate (units (unknown) date) 18 unknown) (unknown) (no (unknown) (unknown) Respiratory Rate (units (unknown) date) 19 24 unknown) (unknown) (no (unknown) (unknown) Respiratory Rate (units (unknown) date) 20 19 unknown) (unknown) (no (unknown) (unknown) Respiratory Rate (units (unknown) date) 21 35 H unknown) (unknown) (no (unknown) (unknown) Respiratory Rate (units (unknown) date) 23 28 H unknown) (unknown) (no (unknown) (unknown) Respiratory Rate (units (unknown) date) 23 unknown) (unknown) (no (unknown) (unknown) Respiratory Rate (units (unknown) date) unknown) (unknown) (no (unknown) (unknown) Result diagrams: (units (unknown) date) unknown) (unknown) (no (unknown) (unknown) Review of Systems (units (unknown) date) unknown) (unknown) (no (unknown) (unknown) SARS-CoV-2 (PCR) (units (unknown) date) (Negative) unknown) (unknown) (no (unknown) (unknown) SARS-CoV-2 (PCR) (units (unknown) date) Negative unknown) (Negative) (unknown) (no (unknown) (unknown) SKIN: Warm, dry, (units (unknown) date) no petechiae, no unknown) rashes or lesions. (unknown) (no (unknown) (unknown) Signed By: (units (unk nown) date) unknown) (unknown) (no (unknown) (unknown) Signed (units (unkno wn) date) unknown) (unknown) (no (unknown) (unknown) Sinus rhythm rate (units (unknown) date) of 79 CA 138 QRS unknown) of 94 QTC 415. No acute ST elevation or (unknown) (no (unknown) (unknown) Smoking Status: (units (unknown) date) Current every day unknown) smoker (unknown) (no (unknown) (unknown) Social History (units (unknown) date) (Reviewed 10/26/22 unknown) @ 19:36 by Ruthy Vance DO) (unknown) (no (unknown) (unknown) Sodium (137-145) (units (unknown) date) mmol/L unknown) (unknown) (no (unknown) (unknown) Sodium 141 (units (unk nown) date) (137-145) mmol/L unknown) (unknown) (no (unknown) (unknown) Source: patient (units (unknown) date) unknown) (unknown) (no (unknown) (unknown) Stated Complaint: (units (unknown) date) Chest pain, unknown) squeezing, light headed, 'not right' (unknown) (no (unknown) (unknown) States she is (units ( unknown) date) allergic to sulfa unknown) tetracycline. She does smoke tobacco, denies (unknown) (no (unknown) (unknown) Stop: 10/26/22 (units (unknown) date) 17:57 unknown) (unknown) (no (unknown) (unknown) Substance Use (units ( unknown) date) Type: does not use unknown) (unknown) (no (unknown) (unknown) Sulfa (units (unkno wn) date) (Sulfonamide unknown) Allergy Redness of Verified 10/26/22 17:50 (unknown) (no (unknown) (unknown) Surgical changes (units (unknown) date) and devices:? unknown) None.? (unknown) (no (unknown) (unknown) TECHNIQUE:? One (units (unknown) date) view of the chest unknown) was acquired.? (unknown) (no (unknown) (unknown) Temperature 98.1 (units (unknown) date) F 10/26/22 17:50 unknown) (unknown) (no (unknown) (unknown) Temperature 98.1 (units (unknown) date) F unknown) (unknown) (no (unknown) (unknown) Temperature (units (un known) date) unknown) (unknown) (no (unknown) (unknown) This is a (units (unkno wn) date) 62-year-old female unknown) with history of factor 8 elevation, 3 prior strokes (unknown) (no (unknown) (unknown) This is a (units (unkn own) date) 62-year-old female unknown) with history of hypertension, diabetes, factor 8 (unknown) (no (unknown) (unknown) Time Seen by (units (u nknown) date) Provider: 10/26/22 unknown) 19:14 (unknown) (no (unknown) (unknown) Time: 21:43 (units (un known) date) unknown) (unknown) (no (unknown) (unknown) Total Bilirubin (units (unknown) date) (0.2-1.3) mg/dL unknown) (unknown) (no (unknown) (unknown) Total Bilirubin (units (unknown) date) 0.9 (0.2-1.3) unknown) mg/dL (unknown) (no (unknown) (unknown) Total Creatine (units (unknown) date) Kinase (30-135) unknown) U/L (unknown) (no (unknown) (unknown) Total Creatine (units (unknown) date) Kinase 143 H unknown) (30-135) U/L (unknown) (no (unknown) (unknown) Total Protein (units ( unknown) date) (6.3-8.2) g/dL unknown) (unknown) (no (unknown) (unknown) Total Protein 7.9 (units (unknown) date) (6.3-8.2) g/dL unknown) (unknown) (no (unknown) (unknown) Trop I [Troponin (units (unknown) date) I] Stat unknown) (unknown) (no (unknown) (unknown) Troponin + CK (units ( unknown) date) Cardiac Panel Stat unknown) (unknown) (no (unknown) (unknown) Troponin I < (units (u nknown) date) 0.012 < 0.012 unknown) (0.01-0.034) ng/mL (unknown) (no (unknown) (unknown) Troponin I (units (unk nown) date) (0.01-0.034) ng/mL unknown) (unknown) (no (unknown) (unknown) Friday. (units (unkno wn) date) unknown) (unknown) (no (unknown) (unknown) US abdomen (units (unk nown) date) complete Stat unknown) (unknown) (no (unknown) (unknown) Ur Culture (units (unk nown) date) Indicated? Cult unknown) not indicated (unknown) (no (unknown) (unknown) Ur Culture (units (unk nown) date) Indicated? unknown) (unknown) (no (unknown) (unknown) Urine Bacteria (units (unknown) date) (None) unknown) (unknown) (no (unknown) (unknown) Urine Bacteria (units (unknown) date) None seen (None) unknown) (unknown) (no (unknown) (unknown) Urine Dip (units (unkn own) date) unknown) (unknown) (no (unknown) (unknown) Urine Microscopic (units (unknown) date) Stat unknown) (unknown) (no (unknown) (unknown) Urine RBC (units (unkn own) date) (0-5/HPF) unknown) (unknown) (no (unknown) (unknown) Urine RBC None (units (unknown) date) seen (0-5/HPF) unknown) (unknown) (no (unknown) (unknown) Urine Specific (units (unknown) date) Ophelia 1.015 unknown) (unknown) (no (unknown) (unknown) Urine WBC (units (unkn own) date) (0-5/HPF) unknown) (unknown) (no (unknown) (unknown) Urine WBC 0-1/hpf (units (unknown) date) (0-5/HPF) unknown) (unknown) (no (unknown) (unknown) Vital Signs - 8 (units (unknown) date) hr unknown) (unknown) (no (unknown) (unknown) Vital Signs (units (un known) date) unknown) (unknown) (no (unknown) (unknown) Vital signs: (units (u nknown) date) unknown) (unknown) (no (unknown) (unknown) WBC (4.5-11.0) (units (unknown) date) X103/uL unknown) (unknown) (no (unknown) (unknown) WBC 5.9 (units (unkno wn) date) (4.5-11.0) X103/uL unknown) (unknown) (no (unknown) (unknown) XR chest 1V Stat (units (unknown) date) unknown) (unknown) (no (unknown) (unknown) XRay Report (units (un known) date) unknown) (unknown) (no (unknown) (unknown) [Embedded Image (units (unknown) date) Not Available] unknown) (unknown) (no (unknown) (unknown) alcohol intake (units (unknown) date) frequency: 0-2 unknown) drinks per day (unknown) (no (unknown) (unknown) alcohol, denies (units (unknown) date) illicit. Primary unknown) care is Dr. Dey she has not appointment on (unknown) (no (unknown) (unknown) also notes she is (units (unknown) date) had left flank unknown) pain for the past week she states she has a (unknown) (no (unknown) (unknown) and below (units (unkn own) date) unknown) (unknown) (no (unknown) (unknown) appear (units (unkno wn) date) unknown) (unknown) (no (unknown) (unknown) been constipated. (units (unknown) date) She states in unknown) terms of surgeries she is had lithotripsies, (unknown) (no (unknown) (unknown) depression noted. (units (unknown) date) Patient has prior unknown) from 03/30/2022 with no acute changes. (unknown) (no (unknown) (unknown) describes (units (unkn own) date) intermittent unknown) rating her jaw and left arm. She felt dizzy during these (unknown) (no (unknown) (unknown) diabetes, (units (unkn own) date) hypertension unknown) dyslipidemia and prior kidney stones. 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 Lipase (unknown) (no (unknown) (unknown) episodes and felt (units (unknown) date) short of breath unknown) during episodes they resolved on their own she (unknown) (no (unknown) (unknown) extremities (units (un known) date) unknown) (unknown) (no (unknown) (unknown) guarding or (units (un known) date) rebound, rigidity, unknown) no mass (unknown) (no (unknown) (unknown) history of kidney (units (unknown) date) stones feels unknown) similar. Patient denies dysuria frequency or (unknown) (no (unknown) (unknown) in her chest. (units ( unknown) date) Patient states she unknown) has not had similar symptoms in the past. She (unknown) (no (unknown) (unknown) intact (units (unkno wn) date) unknown) (unknown) (no (unknown) (unknown) is had an (units (unkn own) date) intermittently. unknown) She is had nausea when she has a squeezing sensation (unknown) (no (unknown) (unknown) is negative and (units (unknown) date) bilirubins normal. unknown) (unknown) (no (unknown) (unknown) major changes. (units (unknown) date) Creatinine appears unknown) stable from her baseline, she does have an (unknown) (no (unknown) (unknown) moist mucous (units (u nknown) date) membranes unknown) (unknown) (no (unknown) (unknown) morning, if (units (un known) date) patient discharged unknown) home can follow-up with GI for possible (unknown) (no (unknown) (unknown) of left chest (units ( unknown) date) pain squeezing unknown) radiating to her jaw arm intermittent. Has (unknown) (no (unknown) (unknown) on Eliquis, CKD (units (unknown) date) stage 3, Crohn's unknown) disease, diverticulitis, diet-controlled (unknown) (no (unknown) (unknown) outpatient ERCP (units (unknown) date) does not appear to unknown) be obstructed (unknown) (no (unknown) (unknown) resolved at this (units (unknown) date) time she also unknown) notes a little bit of left flank pain. Patient (unknown) (no (unknown) (unknown) tobacco type: (units ( unknown) date) cigarettes unknown) (unknown) (no (unknown) (unknown) unremarkable.? (units (unknown) date) unknown) (unknown) (no (unknown) (unknown) ureteral stents, (units (unknown) date) x3 with unknown) a complete hysterectomy for endometriosis. (unknown) (no (unknown) (unknown) urgency she (units (un known) date) states it has been unknown) a little bit more difficult to urinate. She is (unknown) (no (unknown) (unknown) woke up from a (units (unknown) date) nap at about 1300 unknown) day had left-sided chest squeezing which he Result panel 155 (unknown) (no date) (unknown) (unknown) < 0.012 ng/ml (unkn own) (unknown) (no date) (unknown) (unknown) < 0.012 ng/ml (unkn own) (unknown) (no date) (unknown) (unknown) 0.5 % (unkn own) (unknown) (no date) (unknown) (unknown) 0.73 ng/ml (unkn own) (unknown) (no date) (unknown) (unknown) 0.9 mg/dl (unkn own) (unknown) (no date) (unknown) (unknown) 1.3 (units (unkn own) unknown) (unknown) (no date) (unknown) (unknown) 1.66 mg/dl (unkn own) (unknown) (no date) (unknown) (unknown) 101 mmol/l (unkn own) (unknown) (no date) (unknown) (unknown) 13.9 (units (unkn own) unknown) (unknown) (no date) (unknown) (unknown) 141 mmol/l (unkn own) (unknown) (no date) (unknown) (unknown) 143 u/l (unkn own) (unknown) (no date) (unknown) (unknown) 153 u/l (unkn own) (unknown) (no date) (unknown) (unknown) 2.0 mg/dl (unkn own) (unknown) (no date) (unknown) (unknown) 23 mg/dl (unkn own) (unknown) (no date) (unknown) (unknown) 263 iu/l (unkn own) (unknown) (no date) (unknown) (unknown) 3.4 g/dl (unkn own) (unknown) (no date) (unknown) (unknown) 3.7 mmol/l (unkn own) (unknown) (no date) (unknown) (unknown) 30 mmol/l (unkn own) (unknown) (no date) (unknown) (unknown) 35 ml/min (unkn own) (unknown) (no date) (unknown) (unknown) 35 ml/min (unkn own) (unknown) (no date) (unknown) (unknown) 375 iu/l (unkn own) (unknown) (no date) (unknown) (unknown) 4.5 g/dl (unkn own) (unknown) (no date) (unknown) (unknown) 424 u/l (unkn own) (unknown) (no date) (unknown) (unknown) 7.9 g/dl (unkn own) (unknown) (no date) (unknown) (unknown) 9.5 mg/dl (unkn own) (unknown) (no date) (unknown) (unknown) 95 mg/dl (unkn own) (unknown) (no date) (unknown) (unknown) 95 mg/dl (unkn own) Result panel 156 (unknown) (no (unknown) (unknown) (no value) (units (unk nown) date) unknown) (unknown) (no (unknown) (unknown) 10/26/22 10/26/22 (units (unknown) date) 10/26/22 unknown) Range/Units (unknown) (no (unknown) (unknown) 10/26/22 18:00 (units (unknown) date) unknown) (unknown) (no (unknown) (unknown) 10/26/22 (units (unkno wn) date) unknown) (unknown) (no (unknown) (unknown) 0924 (units (unkno wn) date) unknown) (unknown) (no (unknown) (unknown) [facility] (units (unknown) date) unknown) (unknown) (no (unknown) (unknown) 16:47 18:00 18:00 (units (unknown) date) unknown) (unknown) (no (unknown) (unknown) 17:50 10/26/22 (units (unknown) date) unknown) (unknown) (no (unknown) (unknown) 18:00 18:30 20:20 (units (unknown) date) unknown) (unknown) (no (unknown) (unknown) 18:01 10/26/22 (units (unknown) date) unknown) (unknown) (no (unknown) (unknown) 18:03 10/26/22 (units (unknown) date) unknown) (unknown) (no (unknown) (unknown) 18:03 (units (unkno wn) date) unknown) (unknown) (no (unknown) (unknown) 18:30 10/26/22 (units (unknown) date) unknown) (unknown) (no (unknown) (unknown) 18:31 10/26/22 (units (unknown) date) unknown) (unknown) (no (unknown) (unknown) 18:31 (units (unkno wn) date) unknown) (unknown) (no (unknown) (unknown) 19:00 10/26/22 (units (unknown) date) unknown) (unknown) (no (unknown) (unknown) 19:00 (units (unkno wn) date) unknown) (unknown) (no (unknown) (unknown) 19:30 10/26/22 (units (unknown) date) unknown) (unknown) (no (unknown) (unknown) 19:30 (units (unkno wn) date) unknown) (unknown) (no (unknown) (unknown) 19:44 10/26/22 (units (unknown) date) unknown) (unknown) (no (unknown) (unknown) 19:44 (units (unkno wn) date) unknown) (unknown) (no (unknown) (unknown) 19:46 10/26/22 (units (unknown) date) unknown) (unknown) (no (unknown) (unknown) 19:49 10/26/22 (units (unknown) date) unknown) (unknown) (no (unknown) (unknown) 19:51 10/26/22 (units (unknown) date) unknown) (unknown) (no (unknown) (unknown) 20:00 10/26/22 (units (unknown) date) unknown) (unknown) (no (unknown) (unknown) 20:00 (units (unkno wn) date) unknown) (unknown) (no (unknown) (unknown) 20:30 10/26/22 (units (unknown) date) unknown) (unknown) (no (unknown) (unknown) 20:30 (units (unkno wn) date) unknown) (unknown) (no (unknown) (unknown) 21:00 10/26/22 (units (unknown) date) unknown) (unknown) (no (unknown) (unknown) 21:01 10/26/22 (units (unknown) date) unknown) (unknown) (no (unknown) (unknown) 21:01 (units (unkno wn) date) unknown) (unknown) (no (unknown) (unknown) ? (units (unkno wn) date) unknown) (unknown) (no (unknown) (unknown) ABDOMEN: Soft, (units (unknown) date) nontender. unknown) Normoactive bowel sounds all 4 quadrants. No (unknown) (no (unknown) (unknown) ALT (<35) IU/L (units (unknown) date) unknown) (unknown) (no (unknown) (unknown) ALT 375 H (<35) (units (unknown) date) IU/L unknown) (unknown) (no (unknown) (unknown) APTT (26-36) (units (u nknown) date) SECONDS unknown) (unknown) (no (unknown) (unknown) APTT 38 H (26-36) (units (unknown) date) SECONDS unknown) (unknown) (no (unknown) (unknown) AST (14-36) IU/L (units (unknown) date) unknown) (unknown) (no (unknown) (unknown) AST 263 H (14-36) (units (unknown) date) IU/L unknown) (unknown) (no (unknown) (unknown) Accession Number: (units (unknown) date) [id number] ?? unknown) (unknown) (no (unknown) (unknown) Acct:[id number] (units (unknown) date) unknown) (unknown) (no (unknown) (unknown) Activity (units (unkno wn) date) Restrictions/Additi unknown) onal Instructions: (unknown) (no (unknown) (unknown) Age/Sex: 62 / F (units (unknown) date) unknown) (unknown) (no (unknown) (unknown) Albumin (3.5-5.0) (units (unknown) date) g/dL unknown) (unknown) (no (unknown) (unknown) Albumin 4.5 (units (un known) date) (3.5-5.0) g/dL unknown) (unknown) (no (unknown) (unknown) Albumin/Globulin (units (unknown) date) Ratio (1.0-2.8) unknown) (unknown) (no (unknown) (unknown) Albumin/Globulin (units (unknown) date) Ratio 1.3 (1.0-2.8) unknown) (unknown) (no (unknown) (unknown) Alkaline (units (unkno wn) date) Phosphatase unknown) (38-126) U/L (unknown) (no (unknown) (unknown) Alkaline (units (unkno wn) date) Phosphatase 424 H unknown) (38-126) U/L (unknown) (no (unknown) (unknown) Allergies (units (unkn own) date) unknown) (unknown) (no (unknown) (unknown) Allergy/AdvReac (units (unknown) date) Type Severity unknown) Reaction Status Date / Time (unknown) (no (unknown) (unknown) [place], [place] (units ( unknown) date) [id number] unknown) (unknown) (no (unknown) (unknown) Antibiotics) Skin (units (unknown) date) unknown) (unknown) (no (unknown) (unknown) Approved by: Robert Rossunits (unknown) date) Ana Maria Arriaga on unknown) 10/26/2022 at 18:42?? (unknown) (no (unknown) (unknown) Aspirin (Aspirin (units (unknown) date) 81 Mg Chew Tab) 324 unknown) mg PO NOW ONE (unknown) (no (unknown) (unknown) Attestation: I (units (unknown) date) personally reviewed unknown) and interpreted this ECG as follows: (unknown) (no (unknown) (unknown) BUN (7-17) mg/dL (units (unknown) date) unknown) (unknown) (no (unknown) (unknown) BUN 23 H (7-17) (units (unknown) date) mg/dL unknown) (unknown) (no (unknown) (unknown) BUN/Creatinine (units (unknown) date) Ratio (6-22) unknown) (unknown) (no (unknown) (unknown) BUN/Creatinine (units (unknown) date) Ratio 13.9 (6-22) unknown) (unknown) (no (unknown) (unknown) Baso # (Auto) (units ( unknown) date) (0-100) /uL unknown) (unknown) (no (unknown) (unknown) Baso # (Auto) 100 (units (unknown) date) (0-100) /uL unknown) (unknown) (no (unknown) (unknown) Baso % (Auto) (units ( unknown) date) (0-2) % unknown) (unknown) (no (unknown) (unknown) Baso % (Auto) 0.9 (units (unknown) date) (0-2) % unknown) (unknown) (no (unknown) (unknown) Bedside Urine (units ( unknown) date) Bilirubin - unknown) Negative (unknown) (no (unknown) (unknown) Bedside Urine (units ( unknown) date) Glucose Negative unknown) (unknown) (no (unknown) (unknown) Bedside Urine (units ( unknown) date) Ketone - Negative unknown) (unknown) (no (unknown) (unknown) Bedside Urine (units ( unknown) date) Leukocytes - unknown) Negative (unknown) (no (unknown) (unknown) Bedside Urine (units ( unknown) date) Nitrite - Negative unknown) (unknown) (no (unknown) (unknown) Bedside Urine (units ( unknown) date) Occult Blood +/ unknown) (unknown) (no (unknown) (unknown) Bedside Urine (units ( unknown) date) Protein - Negative unknown) (unknown) (no (unknown) (unknown) Bedside Urine (units ( unknown) date) Urobilinogen - unknown) Negative (unknown) (no (unknown) (unknown) Bedside Urine pH (units (unknown) date) 6.0 unknown) (unknown) (no (unknown) (unknown) Blood Pressure (units (unknown) date) 121/62 unknown) (unknown) (no (unknown) (unknown) Blood Pressure (units (unknown) date) 127/59 L unknown) (unknown) (no (unknown) (unknown) Blood Pressure (units (unknown) date) 137/97 H unknown) (unknown) (no (unknown) (unknown) Blood Pressure (units (unknown) date) 143/65 H 144/67 H unknown) (unknown) (no (unknown) (unknown) Blood Pressure (units (unknown) date) 151/68 H 10/26/22 unknown) 17:50 (unknown) (no (unknown) (unknown) Blood Pressure (units (unknown) date) 151/68 H unknown) (unknown) (no (unknown) (unknown) Blood Pressure (units (unknown) date) 152/74 H 143/65 H unknown) 162/78 H (unknown) (no (unknown) (unknown) Blood Pressure (units (unknown) date) 152/74 H unknown) (unknown) (no (unknown) (unknown) Blood Pressure (units (unknown) date) 164/72 H 138/62 unknown) (unknown) (no (unknown) (unknown) Bones and chest (units (unknown) date) wall:? No unknown) suspicious bony lesions.? Overlying soft tissues (unknown) (no (unknown) (unknown) CARDIOVASCULAR: (units (unknown) date) Regular rate and unknown) rhythm without murmurs, rubs or gallops. No (unknown) (no (unknown) (unknown) CK-MB (CK-2) (units (u nknown) date) (<2.37) ng/mL unknown) (unknown) (no (unknown) (unknown) CK-MB (CK-2) 0.73 (units (unknown) date) (<2.37) ng/mL unknown) (unknown) (no (unknown) (unknown) CK-MB (CK-2) Rel (units (unknown) date) Index (1.5-5.0) % unknown) (unknown) (no (unknown) (unknown) CK-MB (CK-2) Rel (units (unknown) date) Index 0.5 L unknown) (1.5-5.0) % (unknown) (no (unknown) (unknown) COMPARISON:? (units (u nknown) date) [facility], unknown) CR, XR CHEST 1V, 03/30/2022, 18:39. (unknown) (no (unknown) (unknown) Calcium (8.4-10.2) (units (unknown) date) mg/dL unknown) (unknown) (no (unknown) (unknown) Calcium 9.5 (units (un known) date) (8.4-10.2) mg/dL unknown) (unknown) (no (unknown) (unknown) Carbon Dioxide (units (unknown) date) (22-32) mmol/L unknown) (unknown) (no (unknown) (unknown) Carbon Dioxide 30 (units (unknown) date) (22-32) mmol/L unknown) (unknown) (no (unknown) (unknown) Chest pain, (units (un known) date) Elevated LFTs unknown) (unknown) (no (unknown) (unknown) Chest x-ray: (units (u nknown) date) unknown) (unknown) (no (unknown) (unknown) Chief Complaint: (units (unknown) date) Chest Pain unknown) (unknown) (no (unknown) (unknown) Chloride (98-107) (units (unknown) date) mmol/L unknown) (unknown) (no (unknown) (unknown) Chloride 101 (units (u nknown) date) (98-107) mmol/L unknown) (unknown) (no (unknown) (unknown) Clinical (units (unkno wn) date) Impression: unknown) (unknown) (no (unknown) (unknown) Consultation #1: (units (unknown) date) unknown) (unknown) (no (unknown) (unknown) Consultations (units ( unknown) date) unknown) (unknown) (no (unknown) (unknown) Course (units (unkno wn) date) unknown) (unknown) (no (unknown) (unknown) Creatinine (units (unk nown) date) (0.52-1.04) mg/dL unknown) (unknown) (no (unknown) (unknown) Creatinine 1.66 H (units (unknown) date) (0.52-1.04) mg/dL unknown) (unknown) (no (unknown) (unknown) : 1960 (units (unknown) date) Acct:[id number] unknown) (unknown) (no (unknown) (unknown) : 1960 (units (unknown) date) unknown) (unknown) (no (unknown) (unknown) Date of Service: (units (unknown) date) 10/26/22 unknown) (unknown) (no (unknown) (unknown) Departure (units (unkn own) date) unknown) (unknown) (no (unknown) (unknown) Dictated by: Robert (units (unknown) date) Ana Maria Arriaga on unknown) 10/26/2022 at 18:40 ? ? (unknown) (no (unknown) (unknown) Discharge Plan (units (unknown) date) unknown) (unknown) (no (unknown) (unknown) Discontinued (units (u nknown) date) Medications unknown) (unknown) (no (unknown) (unknown) Do recommend you (units (unknown) date) stay for chest pain unknown) arms and overnight and further cardiac (unknown) (no (unknown) (unknown) Documented By: BS (units (unknown) date) unknown) (unknown) (no (unknown) (unknown) Documented By: JO (units (unknown) date) unknown) (unknown) (no (unknown) (unknown) Dr. Kearney, (units ( unknown) date) recommends testing unknown) hospital for chest pain repeat labs in the (unknown) (no (unknown) (unknown) ECG Data (units (unkno wn) date) unknown) (unknown) (no (unknown) (unknown) ER Physician: (units ( unknown) date) Ruthy Vance D.O. unknown) (unknown) (no (unknown) (unknown) EXTREMITIES: (units (u nknown) date) Normal range of unknown) motion, no clubbing or edema. Neurovascularly (unknown) (no (unknown) (unknown) Emergency Report (units (unknown) date) unknown) (unknown) (no (unknown) (unknown) Eos # (Auto) (units (u nknown) date) (0-450) /uL unknown) (unknown) (no (unknown) (unknown) Eos # (Auto) 200 (units (unknown) date) (0-450) /uL unknown) (unknown) (no (unknown) (unknown) Eos % (Auto) (2-4) (units (unknown) date) % unknown) (unknown) (no (unknown) (unknown) Eos % (Auto) 3.1 (units (unknown) date) (2-4) % unknown) (unknown) (no (unknown) (unknown) Esterase (units (unkno wn) date) unknown) (unknown) (no (unknown) (unknown) Estimated GFR (units ( unknown) date) (>60) mL/min unknown) (unknown) (no (unknown) (unknown) Estimated GFR 35 L (units (unknown) date) (>60) mL/min unknown) (unknown) (no (unknown) (unknown) Exam Narrative: (units (unknown) date) unknown) (unknown) (no (unknown) (unknown) Exam (units (unkno wn) date) unknown) (unknown) (no (unknown) (unknown) FINDINGS:? (units (unk nown) date) unknown) (unknown) (no (unknown) (unknown) Arcenio Dey, (units (unknown) date) MD [Primary Care unknown) Provider] (unknown) (no (unknown) (unknown) GENERAL: Alert and (units (unknown) date) oriented x three, unknown) female in mild distress. (unknown) (no (unknown) (unknown) : No CVA (units (unk nown) date) tenderness unknown) (unknown) (no (unknown) (unknown) General (units (unkno wn) date) unknown) (unknown) (no (unknown) (unknown) Globulin (1.7-4.1) (units (unknown) date) g/dL unknown) (unknown) (no (unknown) (unknown) Globulin 3.4 (units (u nknown) date) (1.7-4.1) g/dL unknown) (unknown) (no (unknown) (unknown) Glucose (80-110) (units (unknown) date) mg/dL unknown) (unknown) (no (unknown) (unknown) Glucose 95 (units (unk nown) date) (80-110) mg/dL unknown) (unknown) (no (unknown) (unknown) HEENT: Head (units (un known) date) normocephalic, unknown) atraumatic, EOMI, pupils reactive, face symmetric, (unknown) (no (unknown) (unknown) HPI - Chest Pain (units (unknown) date) unknown) (unknown) (no (unknown) (unknown) HPI narrative: (units (unknown) date) unknown) (unknown) (no (unknown) (unknown) Hct (36-46) % (units ( unknown) date) unknown) (unknown) (no (unknown) (unknown) Hct 36.0 (36-46) % (units (unknown) date) unknown) (unknown) (no (unknown) (unknown) Hgb (12.0-16.0) (units (unknown) date) g/dL unknown) (unknown) (no (unknown) (unknown) Hgb 11.9 L (units (unk nown) date) (12.0-16.0) g/dL unknown) (unknown) (no (unknown) (unknown) History of Present (units (unknown) date) Illness unknown) (unknown) (no (unknown) (unknown) IMPRESSION:? No (units (unknown) date) acute unknown) cardiopulmonary pathology. (unknown) (no (unknown) (unknown) INDICATIONS:? (units ( unknown) date) chest pain unknown) (unknown) (no (unknown) (unknown) INR (0.9-1.3) (units ( unknown) date) unknown) (unknown) (no (unknown) (unknown) INR 1.2 (0.9-1.3) (units (unknown) date) unknown) (unknown) (no (unknown) (unknown) Imaging Data (units (u nknown) date) unknown) (unknown) (no (unknown) (unknown) Initial Vital (units ( unknown) date) Signs unknown) (unknown) (no (unknown) (unknown) Initial Vital (units ( unknown) date) Signs: unknown) (unknown) (no (unknown) (unknown) Instructions: DI (units (unknown) date) for Chest Pain unknown) (unknown) (no (unknown) (unknown) Interpretation: (units (unknown) date) unknown) (unknown) (no (unknown) (unknown) [facility] (units (unknown) date) [address] unknown) [place] [address] (unknown) (no (unknown) (unknown) [facility] (units (unknown) date) unknown) (unknown) (no (unknown) (unknown) It is also noticed (units (unknown) date) that there is some unknown) sludge in the common bile duct on her (unknown) (no (unknown) (unknown) JVD. No swelling (units (unknown) date) bilateral lower unknown) extremities. (unknown) (no (unknown) (unknown) Lab Data (units (unkno wn) date) unknown) (unknown) (no (unknown) (unknown) Lab Results (units (un known) date) unknown) (unknown) (no (unknown) (unknown) Labs: (units (unkno wn) date) unknown) (unknown) (no (unknown) (unknown) Last Admin: (units (un known) date) 10/26/22 18:59 unknown) Dose: 324 mg (unknown) (no (unknown) (unknown) Last Admin: (units (un known) date) 10/26/22 19:46 unknown) Dose: 0.4 mg (unknown) (no (unknown) (unknown) Limitations: no (units (unknown) date) limitations unknown) (unknown) (no (unknown) (unknown) Lipase (23-300) (units (unknown) date) U/L unknown) (unknown) (no (unknown) (unknown) Lipase 153 (units (unk nown) date) (23-300) U/L unknown) (unknown) (no (unknown) (unknown) Loc: ED (units (unkno wn) date) unknown) (unknown) (no (unknown) (unknown) Nolan Ahuja, (units (unknown) date) [Physician] unknown) (unknown) (no (unknown) (unknown) Lungs and pleura:? (units (unknown) date) Lungs are clear.? unknown) No pleural effusions or pneumothorax.? (unknown) (no (unknown) (unknown) Lymph # (Auto) (units (unknown) date) (3202-5366) /uL unknown) (unknown) (no (unknown) (unknown) Lymph # (Auto) (units (unknown) date) 1900 (8811-6069) unknown) /uL (unknown) (no (unknown) (unknown) Lymph % (Auto) (units (unknown) date) (25-40) % unknown) (unknown) (no (unknown) (unknown) Lymph % (Auto) (units (unknown) date) 32.2 (25-40) % unknown) (unknown) (no (unknown) (unknown) MCH (26-34) PG (units (unknown) date) unknown) (unknown) (no (unknown) (unknown) MCH 29.8 (26-34) (units (unknown) date) PG unknown) (unknown) (no (unknown) (unknown) MCHC (30-36) % (units (unknown) date) unknown) (unknown) (no (unknown) (unknown) MCHC 33.1 (30-36) (units (unknown) date) % unknown) (unknown) (no (unknown) (unknown) MCV (80-100) fL (units (unknown) date) unknown) (unknown) (no (unknown) (unknown) MCV 90.0 (80-100) (units (unknown) date) fL unknown) (unknown) (no (unknown) (unknown) MDM - Chest Pain (units (unknown) date) unknown) (unknown) (no (unknown) (unknown) MDM Narrative (units ( unknown) date) unknown) (unknown) (no (unknown) (unknown) MR#: [id number] (units (unknown) date) unknown) (unknown) (no (unknown) (unknown) Magnesium (units (unkn own) date) (1.6-2.3) mg/dL unknown) (unknown) (no (unknown) (unknown) Magnesium 2.0 (units ( unknown) date) (1.6-2.3) mg/dL unknown) (unknown) (no (unknown) (unknown) Mediastinum:? (units ( unknown) date) Mediastinal unknown) contours appear normal.? Heart size is normal.? (unknown) (no (unknown) (unknown) Medical decision (units (unknown) date) making narrative: unknown) (unknown) (no (unknown) (unknown) Mode of arrival: (units (unknown) date) Ambulatory unknown) (unknown) (no (unknown) (unknown) [place] # (Auto) (units ( unknown) date) (0-900) /uL unknown) (unknown) (no (unknown) (unknown) [place] # (Auto) 600 (units (unknown) date) (0-900) /uL unknown) (unknown) (no (unknown) (unknown) [place] % (Auto) (units ( unknown) date) (3-14) % unknown) (unknown) (no (unknown) (unknown) [place] % (Auto) 10.2 (units (unknown) date) (3-14) % unknown) (unknown) (no (unknown) (unknown) NECK: Supple, full (units (unknown) date) range of motion unknown) (unknown) (no (unknown) (unknown) NEUROLOGICAL: (units ( unknown) date) Cranial nerves II unknown) through XII grossly intact. Moving all (unknown) (no (unknown) (unknown) NSR rate of 73, pr (units (unknown) date) 144, qrs 90, Qtc unknown) 409. No acute ST changes. (unknown) (no (unknown) (unknown) Narrative (units (unkn own) date) unknown) (unknown) (no (unknown) (unknown) Neut # (Auto) (units ( unknown) date) (6343-1132) /uL unknown) (unknown) (no (unknown) (unknown) Neut # (Auto) 3200 (units (unknown) date) (0075-3211) /uL unknown) (unknown) (no (unknown) (unknown) Neut % (Auto) (units ( unknown) date) (50-75) % unknown) (unknown) (no (unknown) (unknown) Neut % (Auto) 53.6 (units (unknown) date) (50-75) % unknown) (unknown) (no (unknown) (unknown) Nitroglycerin (units ( unknown) date) (Nitroglycerin 0.4 unknown) Mg Sl Tab) 0.4 mg SL [id number] PRN (unknown) (no (unknown) (unknown) Ordered: (units (unkno wn) date) unknown) (unknown) (no (unknown) (unknown) Ordering Provider: (units (unknown) date) Vignesh Garcia D.O. unknown) (unknown) (no (unknown) (unknown) Orders (units (unkno wn) date) unknown) (unknown) (no (unknown) (unknown) Oxygen Delivery (units (unknown) date) Method 10/26/22 unknown) 17:50 (unknown) (no (unknown) (unknown) Oxygen Delivery (units (unknown) date) Method Room Air unknown) (unknown) (no (unknown) (unknown) Oxygen Delivery (units (unknown) date) Method unknown) (unknown) (no (unknown) (unknown) PRN Reason: Chest (units (unknown) date) Pain unknown) (unknown) (no (unknown) (unknown) PROCEDURE:? XR (units (unknown) date) CHEST 1V unknown) (unknown) (no (unknown) (unknown) PT (10.1-12.7) (units (unknown) date) SECONDS unknown) (unknown) (no (unknown) (unknown) PT 14.3 H (units (unkn own) date) (10.1-12.7) SECONDS unknown) (unknown) (no (unknown) (unknown) Ramirez Garcia MD (units (unknown) date) [Physician] unknown) (unknown) (no (unknown) (unknown) Patient (units (unkno wn) date) Disposition: Home unknown) (unknown) (no (unknown) (unknown) Patient History (units (unknown) date) unknown) (unknown) (no (unknown) (unknown) Patient states she (units (unknown) date) is never had a unknown) stress test or cardiac catheterization. (unknown) (no (unknown) (unknown) Patient: (units (unkno wn) date) ElsaMona MR#: unknown) [id number] (unknown) (no (unknown) (unknown) Patient: (units (unkno wn) date) Mona Hunter unknown) (unknown) (no (unknown) (unknown) Please return for (units (unknown) date) new or worsening unknown) chest pain, passing out, shortness of breath, (unknown) (no (unknown) (unknown) Plt Count (units (unkn own) date) (150-400) X103/uL unknown) (unknown) (no (unknown) (unknown) Plt Count 284 (units ( unknown) date) (150-400) X103/uL unknown) (unknown) (no (unknown) (unknown) Potassium (units (unkn own) date) (3.4-5.1) mmol/L unknown) (unknown) (no (unknown) (unknown) Potassium 3.7 (units ( unknown) date) (3.4-5.1) mmol/L unknown) (unknown) (no (unknown) (unknown) Prior ECG (units (unkn own) date) tracings: available unknown) for review (unknown) (no (unknown) (unknown) Procedure: XR (units ( unknown) date) chest 1V unknown) (unknown) (no (unknown) (unknown) Pulse Oximetry 96 (units (unknown) date) unknown) (unknown) (no (unknown) (unknown) Pulse Oximetry 97 (units (unknown) date) 96 unknown) (unknown) (no (unknown) (unknown) Pulse Oximetry 97 (units (unknown) date) unknown) (unknown) (no (unknown) (unknown) Pulse Oximetry 98 (units (unknown) date) 97 unknown) (unknown) (no (unknown) (unknown) Pulse Oximetry 98 (units (unknown) date) 98 unknown) (unknown) (no (unknown) (unknown) Pulse Oximetry 99 (units (unknown) date) 10/26/22 17:50 unknown) (unknown) (no (unknown) (unknown) Pulse Oximetry 99 (units (unknown) date) 99 99 unknown) (unknown) (no (unknown) (unknown) Pulse Oximetry (units (unknown) date) unknown) (unknown) (no (unknown) (unknown) Pulse Rate 74 72 (units (unknown) date) unknown) (unknown) (no (unknown) (unknown) Pulse Rate 78 78 (units (unknown) date) unknown) (unknown) (no (unknown) (unknown) Pulse Rate 78 80 (units (unknown) date) unknown) (unknown) (no (unknown) (unknown) Pulse Rate 78 (units ( unknown) date) unknown) (unknown) (no (unknown) (unknown) Pulse Rate 79 75 (units (unknown) date) unknown) (unknown) (no (unknown) (unknown) Pulse Rate 80 80 (units (unknown) date) unknown) (unknown) (no (unknown) (unknown) Pulse Rate 80 (units ( unknown) date) unknown) (unknown) (no (unknown) (unknown) Pulse Rate 86 (units ( unknown) date) 10/26/22 17:50 unknown) (unknown) (no (unknown) (unknown) Pulse Rate 86 78 (units (unknown) date) 81 unknown) (unknown) (no (unknown) (unknown) RBC (4.0-5.2) (units ( unknown) date) X106/uL unknown) (unknown) (no (unknown) (unknown) RBC 4.00 (4.0-5.2) (units (unknown) date) X106/uL unknown) (unknown) (no (unknown) (unknown) RDW (11.6-14.8) % (units (unknown) date) unknown) (unknown) (no (unknown) (unknown) RDW 14.7 (units (unkno wn) date) (11.6-14.8) % unknown) (unknown) (no (unknown) (unknown) RESPIRATORY: (units (u nknown) date) Breath sounds equal unknown) bilaterally, no wheezes rales or rhonchi. (unknown) (no (unknown) (unknown) ROS Unobtainable: (units (unknown) date) All systems unknown) reviewed + are unremarkable except as noted in HPI (unknown) (no (unknown) (unknown) Radiologist's (units ( unknown) date) Impression: unknown) (unknown) (no (unknown) (unknown) Referrals: (units (unk nown) date) unknown) (unknown) (no (unknown) (unknown) Related Data (units (u nknown) date) unknown) (unknown) (no (unknown) (unknown) Respiratory Rate (units (unknown) date) 18 10/26/22 17:50 unknown) (unknown) (no (unknown) (unknown) Respiratory Rate (units (unknown) date) 18 unknown) (unknown) (no (unknown) (unknown) Respiratory Rate (units (unknown) date) 19 24 unknown) (unknown) (no (unknown) (unknown) Respiratory Rate (units (unknown) date) 20 19 unknown) (unknown) (no (unknown) (unknown) Respiratory Rate (units (unknown) date) 21 35 H unknown) (unknown) (no (unknown) (unknown) Respiratory Rate (units (unknown) date) 23 28 H unknown) (unknown) (no (unknown) (unknown) Respiratory Rate (units (unknown) date) 23 unknown) (unknown) (no (unknown) (unknown) Respiratory Rate (units (unknown) date) unknown) (unknown) (no (unknown) (unknown) Result diagrams: (units (unknown) date) unknown) (unknown) (no (unknown) (unknown) Review of Systems (units (unknown) date) unknown) (unknown) (no (unknown) (unknown) SARS-CoV-2 (PCR) (units (unknown) date) (Negative) unknown) (unknown) (no (unknown) (unknown) SARS-CoV-2 (PCR) (units (unknown) date) Negative (Negative) unknown) (unknown) (no (unknown) (unknown) SKIN: Warm, dry, (units (unknown) date) no petechiae, no unknown) rashes or lesions. (unknown) (no (unknown) (unknown) Signed By: (units (unk nown) date) unknown) (unknown) (no (unknown) (unknown) Signed (units (unkno wn) date) unknown) (unknown) (no (unknown) (unknown) Sinus rhythm rate (units (unknown) date) of 79 CA 138 QRS of unknown) 94 QTC 415. No acute ST elevation or (unknown) (no (unknown) (unknown) Smoking Status: (units (unknown) date) Current every day unknown) smoker (unknown) (no (unknown) (unknown) Social History (units (unknown) date) (Reviewed 10/26/22 unknown) @ 19:36 by Ruthy Vance DO) (unknown) (no (unknown) (unknown) Sodium (137-145) (units (unknown) date) mmol/L unknown) (unknown) (no (unknown) (unknown) Sodium 141 (units (unk nown) date) (137-145) mmol/L unknown) (unknown) (no (unknown) (unknown) Source: patient (units (unknown) date) unknown) (unknown) (no (unknown) (unknown) Stand Alone Forms: (units (unknown) date) Patient Portal/API unknown) (unknown) (no (unknown) (unknown) Stated Complaint: (units (unknown) date) Chest pain, unknown) squeezing, light headed, 'not right' (unknown) (no (unknown) (unknown) States she is (units ( unknown) date) allergic to sulfa unknown) tetracycline. She does smoke tobacco, denies (unknown) (no (unknown) (unknown) Stop: 10/26/22 (units (unknown) date) 17:57 unknown) (unknown) (no (unknown) (unknown) Substance Use (units ( unknown) date) Type: does not use unknown) (unknown) (no (unknown) (unknown) Sulfa (Sulfonamide (units (unknown) date) Allergy Redness of unknown) Verified 10/26/22 17:50 (unknown) (no (unknown) (unknown) Surgical changes (units (unknown) date) and devices:? unknown) None.? (unknown) (no (unknown) (unknown) TECHNIQUE:? One (units (unknown) date) view of the chest unknown) was acquired.? (unknown) (no (unknown) (unknown) Temperature 98.1 F (units (unknown) date) 10/26/22 17:50 unknown) (unknown) (no (unknown) (unknown) Temperature 98.1 F (units (unknown) date) unknown) (unknown) (no (unknown) (unknown) Temperature (units (un known) date) unknown) (unknown) (no (unknown) (unknown) This is a (units (unkno wn) date) 62-year-old female unknown) with history of factor 8 elevation, 3 prior strokes (unknown) (no (unknown) (unknown) This is a (units (unkn own) date) 62-year-old female unknown) with history of hypertension, diabetes, factor 8 (unknown) (no (unknown) (unknown) Time Seen by (units (u nknown) date) Provider: 10/26/22 unknown) 19:14 (unknown) (no (unknown) (unknown) Time: 21:43 (units (un known) date) unknown) (unknown) (no (unknown) (unknown) Total Bilirubin (units (unknown) date) (0.2-1.3) mg/dL unknown) (unknown) (no (unknown) (unknown) Total Bilirubin (units (unknown) date) 0.9 (0.2-1.3) mg/dL unknown) (unknown) (no (unknown) (unknown) Total Creatine (units (unknown) date) Kinase (30-135) U/L unknown) (unknown) (no (unknown) (unknown) Total Creatine (units (unknown) date) Kinase 143 H unknown) (30-135) U/L (unknown) (no (unknown) (unknown) Total Protein (units ( unknown) date) (6.3-8.2) g/dL unknown) (unknown) (no (unknown) (unknown) Total Protein 7.9 (units (unknown) date) (6.3-8.2) g/dL unknown) (unknown) (no (unknown) (unknown) Troponin I < 0.012 (units (unknown) date) < 0.012 unknown) (0.01-0.034) ng/mL (unknown) (no (unknown) (unknown) Troponin I (units (unk nown) date) (0.01-0.034) ng/mL unknown) (unknown) (no (unknown) (unknown) Friday. (units (unkno wn) date) unknown) (unknown) (no (unknown) (unknown) Ur Culture (units (unk nown) date) Indicated? Cult not unknown) indicated (unknown) (no (unknown) (unknown) Ur Culture (units (unk nown) date) Indicated? unknown) (unknown) (no (unknown) (unknown) Urine Bacteria (units (unknown) date) (None) unknown) (unknown) (no (unknown) (unknown) Urine Bacteria (units (unknown) date) None seen (None) unknown) (unknown) (no (unknown) (unknown) Urine Dip (units (unkn own) date) unknown) (unknown) (no (unknown) (unknown) Urine RBC (units (unkn own) date) (0-5/HPF) unknown) (unknown) (no (unknown) (unknown) Urine RBC None (units (unknown) date) seen (0-5/HPF) unknown) (unknown) (no (unknown) (unknown) Urine Specific (units (unknown) date) Ophelia 1.015 unknown) (unknown) (no (unknown) (unknown) Urine WBC (units (unkn own) date) (0-5/HPF) unknown) (unknown) (no (unknown) (unknown) Urine WBC 0-1/hpf (units (unknown) date) (0-5/HPF) unknown) (unknown) (no (unknown) (unknown) Vital Signs - 8 hr (units (unknown) date) unknown) (unknown) (no (unknown) (unknown) Vital Signs (units (un known) date) unknown) (unknown) (no (unknown) (unknown) Vital signs: (units (u nknown) date) unknown) (unknown) (no (unknown) (unknown) WBC (4.5-11.0) (units (unknown) date) X103/uL unknown) (unknown) (no (unknown) (unknown) WBC 5.9 (4.5-11.0) (units (unknown) date) X103/uL unknown) (unknown) (no (unknown) (unknown) XRay Report (units (un known) date) unknown) (unknown) (no (unknown) (unknown) [Embedded Image (units (unknown) date) Not Available] unknown) (unknown) (no (unknown) (unknown) alcohol intake (units (unknown) date) frequency: 0-2 unknown) drinks per day (unknown) (no (unknown) (unknown) alcohol, denies (units (unknown) date) illicit. Primary unknown) care is Dr. Dey she has not appointment on (unknown) (no (unknown) (unknown) also notes she is (units (unknown) date) had left flank pain unknown) for the past week she states she has a (unknown) (no (unknown) (unknown) and below (units (unkn own) date) unknown) (unknown) (no (unknown) (unknown) appear (units (unkno wn) date) unknown) (unknown) (no (unknown) (unknown) been constipated. (units (unknown) date) She states in terms unknown) of surgeries she is had lithotripsies, (unknown) (no (unknown) (unknown) depression noted. (units (unknown) date) Patient has prior unknown) from 03/30/2022 with no acute changes. (unknown) (no (unknown) (unknown) describes (units (unkn own) date) intermittent rating unknown) her jaw and left arm. She felt dizzy during these (unknown) (no (unknown) (unknown) diabetes, (units (unkn own) date) hypertension unknown) dyslipidemia and prior kidney stones. 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 Lipase (unknown) (no (unknown) (unknown) episodes and felt (units (unknown) date) short of breath unknown) during episodes they resolved on their own she (unknown) (no (unknown) (unknown) extremities (units (un known) date) unknown) (unknown) (no (unknown) (unknown) guarding or (units (un known) date) rebound, rigidity, unknown) no mass (unknown) (no (unknown) (unknown) history of kidney (units (unknown) date) stones feels unknown) similar. Patient denies dysuria frequency or (unknown) (no (unknown) (unknown) in her chest. (units ( unknown) date) Patient states she unknown) has not had similar symptoms in the past. She (unknown) (no (unknown) (unknown) intact (units (unkno wn) date) unknown) (unknown) (no (unknown) (unknown) is had an (units (unkn own) date) intermittently. She unknown) is had nausea when she has a squeezing sensation (unknown) (no (unknown) (unknown) is negative and (units (unknown) date) bilirubins normal. unknown) Patient (unknown) (no (unknown) (unknown) major changes. (units (unknown) date) Creatinine appears unknown) stable from her baseline, she does have an (unknown) (no (unknown) (unknown) moist mucous (units (u nknown) date) membranes unknown) (unknown) (no (unknown) (unknown) morning, if (units (un known) date) patient discharged unknown) home can follow-up with GI for possible (unknown) (no (unknown) (unknown) of left chest pain (units (unknown) date) squeezing radiating unknown) to her jaw arm intermittent. Has (unknown) (no (unknown) (unknown) on Eliquis, CKD (units (unknown) date) stage 3, Crohn's unknown) disease, diverticulitis, diet-controlled (unknown) (no (unknown) (unknown) outpatient ERCP (units (unknown) date) does not appear to unknown) be obstructed (unknown) (no (unknown) (unknown) pain or other new (units (unknown) date) or concerning unknown) changes. (unknown) (no (unknown) (unknown) possible ERCP. (units (unknown) date) Referral is unknown) included below. (unknown) (no (unknown) (unknown) resolved at this (units (unknown) date) time she also notes unknown) a little bit of left flank pain. Patient (unknown) (no (unknown) (unknown) stress testing (units (unknown) date) performed. unknown) (unknown) (no (unknown) (unknown) surgery they (units (u nknown) date) recommend trending unknown) her labs, follow up with gastroenterology for (unknown) (no (unknown) (unknown) sweating, fevers, (units (unknown) date) persistent unknown) vomiting, new right upper quadrant or abdominal (unknown) (no (unknown) (unknown) tobacco type: (units ( unknown) date) cigarettes unknown) (unknown) (no (unknown) (unknown) ultrasound today, (units (unknown) date) her liver enzymes unknown) are slightly elevated. I spoke with General (unknown) (no (unknown) (unknown) unremarkable.? (units (unknown) date) unknown) (unknown) (no (unknown) (unknown) ureteral stents, (units (unknown) date) x3 with a unknown) complete hysterectomy for endometriosis. (unknown) (no (unknown) (unknown) urgency she states (units (unknown) date) it has been a unknown) little bit more difficult to urinate. She is (unknown) (no (unknown) (unknown) woke up from a nap (units (unknown) date) at about 1300 day unknown) had left-sided chest squeezing which he (unknown) (no (unknown) (unknown) workup. Talk with (units (unknown) date) your physician at unknown) your appointment on Friday about having Result panel 157 (unknown) (no (unknown) (unknown) (no value) (units (unk nown) date) unknown) (unknown) (no (unknown) (unknown) <Electronically (units (unknown) date) signed by Ruthy Bridges unknown) Nicole Vance> (unknown) (no (unknown) (unknown) 10/26/22 10/26/22 (units (unknown) date) 10/26/22 unknown) Range/Units (unknown) (no (unknown) (unknown) 10/26/22 18:00 (units (unknown) date) unknown) (unknown) (no (unknown) (unknown) 10/26/22 (units (unkno wn) date) unknown) (unknown) (no (unknown) (unknown) 10/27/22 0836 (units ( unknown) date) unknown) (unknown) (no (unknown) (unknown) 0924 (units (unkno wn) date) unknown) (unknown) (no (unknown) (unknown) [address] [place] [address] (units (unknown) date) unknown) (unknown) (no (unknown) (unknown) 16:47 18:00 18:00 (units (unknown) date) unknown) (unknown) (no (unknown) (unknown) 17:50 10/26/22 (units (unknown) date) unknown) (unknown) (no (unknown) (unknown) 18:00 18:30 20:20 (units (unknown) date) unknown) (unknown) (no (unknown) (unknown) 18:01 10/26/22 (units (unknown) date) unknown) (unknown) (no (unknown) (unknown) 18:03 10/26/22 (units (unknown) date) unknown) (unknown) (no (unknown) (unknown) 18:03 (units (unkno wn) date) unknown) (unknown) (no (unknown) (unknown) 18:30 10/26/22 (units (unknown) date) unknown) (unknown) (no (unknown) (unknown) 18:31 10/26/22 (units (unknown) date) unknown) (unknown) (no (unknown) (unknown) 18:31 (units (unkno wn) date) unknown) (unknown) (no (unknown) (unknown) 19:00 10/26/22 (units (unknown) date) unknown) (unknown) (no (unknown) (unknown) 19:00 (units (unkno wn) date) unknown) (unknown) (no (unknown) (unknown) 19:30 10/26/22 (units (unknown) date) unknown) (unknown) (no (unknown) (unknown) 19:30 (units (unkno wn) date) unknown) (unknown) (no (unknown) (unknown) 19:44 10/26/22 (units (unknown) date) unknown) (unknown) (no (unknown) (unknown) 19:44 (units (unkno wn) date) unknown) (unknown) (no (unknown) (unknown) 19:46 10/26/22 (units (unknown) date) unknown) (unknown) (no (unknown) (unknown) 19:49 10/26/22 (units (unknown) date) unknown) (unknown) (no (unknown) (unknown) 19:51 10/26/22 (units (unknown) date) unknown) (unknown) (no (unknown) (unknown) 20:00 10/26/22 (units (unknown) date) unknown) (unknown) (no (unknown) (unknown) 20:00 (units (unkno wn) date) unknown) (unknown) (no (unknown) (unknown) 20:30 10/26/22 (units (unknown) date) unknown) (unknown) (no (unknown) (unknown) 20:30 (units (unkno wn) date) unknown) (unknown) (no (unknown) (unknown) 21:00 10/26/22 (units (unknown) date) unknown) (unknown) (no (unknown) (unknown) 21:01 10/26/22 (units (unknown) date) unknown) (unknown) (no (unknown) (unknown) 21:01 (units (unkno wn) date) unknown) (unknown) (no (unknown) (unknown) ? (units (unkno wn) date) unknown) (unknown) (no (unknown) (unknown) ABDOMEN: Soft, (units (unknown) date) nontender. unknown) Normoactive bowel sounds all 4 quadrants. No (unknown) (no (unknown) (unknown) ALT (<35) IU/L (units (unknown) date) unknown) (unknown) (no (unknown) (unknown) ALT 375 H (<35) (units (unknown) date) IU/L unknown) (unknown) (no (unknown) (unknown) APTT (26-36) (units (u nknown) date) SECONDS unknown) (unknown) (no (unknown) (unknown) APTT 38 H (26-36) (units (unknown) date) SECONDS unknown) (unknown) (no (unknown) (unknown) AST (14-36) IU/L (units (unknown) date) unknown) (unknown) (no (unknown) (unknown) AST 263 H (14-36) (units (unknown) date) IU/L unknown) (unknown) (no (unknown) (unknown) Accession Number: (units (unknown) date) [id number] ?? unknown) (unknown) (no (unknown) (unknown) Acct:[id number] (units (unknown) date) unknown) (unknown) (no (unknown) (unknown) Activity (units (unkno wn) date) Restrictions/Additi unknown) onal Instructions: (unknown) (no (unknown) (unknown) Age/Sex: 62 / F (units (unknown) date) unknown) (unknown) (no (unknown) (unknown) Albumin (3.5-5.0) (units (unknown) date) g/dL unknown) (unknown) (no (unknown) (unknown) Albumin 4.5 (units (un known) date) (3.5-5.0) g/dL unknown) (unknown) (no (unknown) (unknown) Albumin/Globulin (units (unknown) date) Ratio (1.0-2.8) unknown) (unknown) (no (unknown) (unknown) Albumin/Globulin (units (unknown) date) Ratio 1.3 (1.0-2.8) unknown) (unknown) (no (unknown) (unknown) Alkaline (units (unkno wn) date) Phosphatase unknown) (38-126) U/L (unknown) (no (unknown) (unknown) Alkaline (units (unkno wn) date) Phosphatase 424 H unknown) (38-126) U/L (unknown) (no (unknown) (unknown) Allergies (units (unkn own) date) unknown) (unknown) (no (unknown) (unknown) Allergy/AdvReac (units (unknown) date) Type Severity unknown) Reaction Status Date / Time (unknown) (no (unknown) (unknown) [place], [place] (units ( unknown) date) [id number] unknown) (unknown) (no (unknown) (unknown) Antibiotics) Skin (units (unknown) date) unknown) (unknown) (no (unknown) (unknown) Approved by: Robert (units (unknown) date) Ana Maria Arriaga on unknown) 10/26/2022 at 18:42?? (unknown) (no (unknown) (unknown) Aspirin (Aspirin (units (unknown) date) 81 Mg Chew Tab) 324 unknown) mg PO NOW ONE (unknown) (no (unknown) (unknown) Attestation: I (units (unknown) date) personally reviewed unknown) and interpreted this ECG as follows: (unknown) (no (unknown) (unknown) BUN (7-17) mg/dL (units (unknown) date) unknown) (unknown) (no (unknown) (unknown) BUN 23 H (7-17) (units (unknown) date) mg/dL unknown) (unknown) (no (unknown) (unknown) BUN/Creatinine (units (unknown) date) Ratio (6-22) unknown) (unknown) (no (unknown) (unknown) BUN/Creatinine (units (unknown) date) Ratio 13.9 (6-22) unknown) (unknown) (no (unknown) (unknown) Baso # (Auto) (units ( unknown) date) (0-100) /uL unknown) (unknown) (no (unknown) (unknown) Baso # (Auto) 100 (units (unknown) date) (0-100) /uL unknown) (unknown) (no (unknown) (unknown) Baso % (Auto) (units ( unknown) date) (0-2) % unknown) (unknown) (no (unknown) (unknown) Baso % (Auto) 0.9 (units (unknown) date) (0-2) % unknown) (unknown) (no (unknown) (unknown) Bedside Urine (units ( unknown) date) Bilirubin - unknown) Negative (unknown) (no (unknown) (unknown) Bedside Urine (units ( unknown) date) Glucose Negative unknown) (unknown) (no (unknown) (unknown) Bedside Urine (units ( unknown) date) Ketone - Negative unknown) (unknown) (no (unknown) (unknown) Bedside Urine (units ( unknown) date) Leukocytes - unknown) Negative (unknown) (no (unknown) (unknown) Bedside Urine (units ( unknown) date) Nitrite - Negative unknown) (unknown) (no (unknown) (unknown) Bedside Urine (units ( unknown) date) Occult Blood +/ unknown) (unknown) (no (unknown) (unknown) Bedside Urine (units ( unknown) date) Protein - Negative unknown) (unknown) (no (unknown) (unknown) Bedside Urine (units ( unknown) date) Urobilinogen - unknown) Negative (unknown) (no (unknown) (unknown) Bedside Urine pH (units (unknown) date) 6.0 unknown) (unknown) (no (unknown) (unknown) Blood Pressure (units (unknown) date) 121/62 unknown) (unknown) (no (unknown) (unknown) Blood Pressure (units (unknown) date) 127/59 L unknown) (unknown) (no (unknown) (unknown) Blood Pressure (units (unknown) date) 137/97 H unknown) (unknown) (no (unknown) (unknown) Blood Pressure (units (unknown) date) 143/65 H 144/67 H unknown) (unknown) (no (unknown) (unknown) Blood Pressure (units (unknown) date) 151/68 H 10/26/22 unknown) 17:50 (unknown) (no (unknown) (unknown) Blood Pressure (units (unknown) date) 151/68 H unknown) (unknown) (no (unknown) (unknown) Blood Pressure (units (unknown) date) 152/74 H 143/65 H unknown) 162/78 H (unknown) (no (unknown) (unknown) Blood Pressure (units (unknown) date) 152/74 H unknown) (unknown) (no (unknown) (unknown) Blood Pressure (units (unknown) date) 164/72 H 138/62 unknown) (unknown) (no (unknown) (unknown) Bones and chest (units (unknown) date) wall:? No unknown) suspicious bony lesions.? Overlying soft tissues (unknown) (no (unknown) (unknown) CARDIOVASCULAR: (units (unknown) date) Regular rate and unknown) rhythm without murmurs, rubs or gallops. No (unknown) (no (unknown) (unknown) CK-MB (CK-2) (units (u nknown) date) (<2.37) ng/mL unknown) (unknown) (no (unknown) (unknown) CK-MB (CK-2) 0.73 (units (unknown) date) (<2.37) ng/mL unknown) (unknown) (no (unknown) (unknown) CK-MB (CK-2) Rel (units (unknown) date) Index (1.5-5.0) % unknown) (unknown) (no (unknown) (unknown) CK-MB (CK-2) Rel (units (unknown) date) Index 0.5 L unknown) (1.5-5.0) % (unknown) (no (unknown) (unknown) COMPARISON:? (units (u nknown) date) [facility], unknown) CR, XR CHEST 1V, 03/30/2022, 18:39. (unknown) (no (unknown) (unknown) Calcium (8.4-10.2) (units (unknown) date) mg/dL unknown) (unknown) (no (unknown) (unknown) Calcium 9.5 (units (un known) date) (8.4-10.2) mg/dL unknown) (unknown) (no (unknown) (unknown) Carbon Dioxide (units (unknown) date) (22-32) mmol/L unknown) (unknown) (no (unknown) (unknown) Carbon Dioxide 30 (units (unknown) date) (22-32) mmol/L unknown) (unknown) (no (unknown) (unknown) Chest pain, (units (un known) date) Elevated LFTs unknown) (unknown) (no (unknown) (unknown) Chest x-ray: (units (u nknown) date) unknown) (unknown) (no (unknown) (unknown) Chief Complaint: (units (unknown) date) Chest Pain unknown) (unknown) (no (unknown) (unknown) Chloride (98-107) (units (unknown) date) mmol/L unknown) (unknown) (no (unknown) (unknown) Chloride 101 (units (u nknown) date) (98-107) mmol/L unknown) (unknown) (no (unknown) (unknown) Clinical (units (unkno wn) date) Impression: unknown) (unknown) (no (unknown) (unknown) Consultation #1: (units (unknown) date) unknown) (unknown) (no (unknown) (unknown) Consultations (units ( unknown) date) unknown) (unknown) (no (unknown) (unknown) Course (units (unkno wn) date) unknown) (unknown) (no (unknown) (unknown) Creatinine (units (unk nown) date) (0.52-1.04) mg/dL unknown) (unknown) (no (unknown) (unknown) Creatinine 1.66 H (units (unknown) date) (0.52-1.04) mg/dL unknown) (unknown) (no (unknown) (unknown) : 1960 (units (unknown) date) Acct:[id number] unknown) (unknown) (no (unknown) (unknown) : 1960 (units (unknown) date) unknown) (unknown) (no (unknown) (unknown) Date of Service: (units (unknown) date) 10/26/22 unknown) (unknown) (no (unknown) (unknown) Departure (units (unkn own) date) unknown) (unknown) (no (unknown) (unknown) Dictated by: Robert (units (unknown) date) Ana Maria Arriaga on unknown) 10/26/2022 at 18:40 ? ? (unknown) (no (unknown) (unknown) Discharge Plan (units (unknown) date) unknown) (unknown) (no (unknown) (unknown) Discontinued (units (u nknown) date) Medications unknown) (unknown) (no (unknown) (unknown) Do recommend you (units (unknown) date) stay for chest pain unknown) arms and overnight and further cardiac (unknown) (no (unknown) (unknown) Documented By: BS (units (unknown) date) unknown) (unknown) (no (unknown) (unknown) Documented By: JO (units (unknown) date) unknown) (unknown) (no (unknown) (unknown) Dr. Kearney, (units ( unknown) date) recommends testing unknown) hospital for chest pain repeat labs in the (unknown) (no (unknown) (unknown) ECG Data (units (unkno wn) date) unknown) (unknown) (no (unknown) (unknown) ER Physician: (units ( unknown) date) Ruthy Vance D.O. unknown) (unknown) (no (unknown) (unknown) EXTREMITIES: (units (u nknown) date) Normal range of unknown) motion, no clubbing or edema. Neurovascularly (unknown) (no (unknown) (unknown) Emergency Report (units (unknown) date) unknown) (unknown) (no (unknown) (unknown) Eos # (Auto) (units (u nknown) date) (0-450) /uL unknown) (unknown) (no (unknown) (unknown) Eos # (Auto) 200 (units (unknown) date) (0-450) /uL unknown) (unknown) (no (unknown) (unknown) Eos % (Auto) (2-4) (units (unknown) date) % unknown) (unknown) (no (unknown) (unknown) Eos % (Auto) 3.1 (units (unknown) date) (2-4) % unknown) (unknown) (no (unknown) (unknown) Esterase (units (unkno wn) date) unknown) (unknown) (no (unknown) (unknown) Estimated GFR (units ( unknown) date) (>60) mL/min unknown) (unknown) (no (unknown) (unknown) Estimated GFR 35 L (units (unknown) date) (>60) mL/min unknown) (unknown) (no (unknown) (unknown) Exam Narrative: (units (unknown) date) unknown) (unknown) (no (unknown) (unknown) Exam (units (unkno wn) date) unknown) (unknown) (no (unknown) (unknown) FINDINGS:? (units (unk nown) date) unknown) (unknown) (no (unknown) (unknown) Arcenio Dey, (units (unknown) date) MD [Primary Care unknown) Provider] (unknown) (no (unknown) (unknown) GENERAL: Alert and (units (unknown) date) oriented x three, unknown) female in mild distress. (unknown) (no (unknown) (unknown) : No CVA (units (unk nown) date) tenderness unknown) (unknown) (no (unknown) (unknown) General (units (unkno wn) date) unknown) (unknown) (no (unknown) (unknown) Globulin (1.7-4.1) (units (unknown) date) g/dL unknown) (unknown) (no (unknown) (unknown) Globulin 3.4 (units (u nknown) date) (1.7-4.1) g/dL unknown) (unknown) (no (unknown) (unknown) Glucose (80-110) (units (unknown) date) mg/dL unknown) (unknown) (no (unknown) (unknown) Glucose 95 (units (unk nown) date) (80-110) mg/dL unknown) (unknown) (no (unknown) (unknown) HEENT: Head (units (un known) date) normocephalic, unknown) atraumatic, EOMI, pupils reactive, face symmetric, (unknown) (no (unknown) (unknown) HPI - Chest Pain (units (unknown) date) unknown) (unknown) (no (unknown) (unknown) HPI narrative: (units (unknown) date) unknown) (unknown) (no (unknown) (unknown) Hct (36-46) % (units ( unknown) date) unknown) (unknown) (no (unknown) (unknown) Hct 36.0 (36-46) % (units (unknown) date) unknown) (unknown) (no (unknown) (unknown) Hgb (12.0-16.0) (units (unknown) date) g/dL unknown) (unknown) (no (unknown) (unknown) Hgb 11.9 L (units (unk nown) date) (12.0-16.0) g/dL unknown) (unknown) (no (unknown) (unknown) History of Present (units (unknown) date) Illness unknown) (unknown) (no (unknown) (unknown) IMPRESSION:? No (units (unknown) date) acute unknown) cardiopulmonary pathology. (unknown) (no (unknown) (unknown) INDICATIONS:? (units ( unknown) date) chest pain unknown) (unknown) (no (unknown) (unknown) INR (0.9-1.3) (units ( unknown) date) unknown) (unknown) (no (unknown) (unknown) INR 1.2 (0.9-1.3) (units (unknown) date) unknown) (unknown) (no (unknown) (unknown) Imaging Data (units (u nknown) date) unknown) (unknown) (no (unknown) (unknown) Initial Vital (units ( unknown) date) Signs unknown) (unknown) (no (unknown) (unknown) Initial Vital (units ( unknown) date) Signs: unknown) (unknown) (no (unknown) (unknown) Instructions: DI (units (unknown) date) for Chest Pain unknown) (unknown) (no (unknown) (unknown) Interpretation: (units (unknown) date) unknown) (unknown) (no (unknown) (unknown) [facility] (units (unknown) date) [address] unknown) [place] [address] (unknown) (no (unknown) (unknown) [facility] (units (unknown) date) unknown) (unknown) (no (unknown) (unknown) It is also noticed (units (unknown) date) that there is some unknown) sludge in the common bile duct on her (unknown) (no (unknown) (unknown) JVD. No swelling (units (unknown) date) bilateral lower unknown) extremities. (unknown) (no (unknown) (unknown) Lab Data (units (unkno wn) date) unknown) (unknown) (no (unknown) (unknown) Lab Results (units (un known) date) unknown) (unknown) (no (unknown) (unknown) Labs: (units (unkno wn) date) unknown) (unknown) (no (unknown) (unknown) Last Admin: (units (un known) date) 10/26/22 18:59 unknown) Dose: 324 mg (unknown) (no (unknown) (unknown) Last Admin: (units (un known) date) 10/26/22 19:46 unknown) Dose: 0.4 mg (unknown) (no (unknown) (unknown) Limitations: no (units (unknown) date) limitations unknown) (unknown) (no (unknown) (unknown) Lipase (23-300) (units (unknown) date) U/L unknown) (unknown) (no (unknown) (unknown) Lipase 153 (units (unk nown) date) (23-300) U/L unknown) (unknown) (no (unknown) (unknown) Loc: ED (units (unkno wn) date) unknown) (unknown) (no (unknown) (unknown) Nolan Ahuja, (units (unknown) date) [Physician] unknown) (unknown) (no (unknown) (unknown) Lungs and pleura:? (units (unknown) date) Lungs are clear.? unknown) No pleural effusions or pneumothorax.? (unknown) (no (unknown) (unknown) Lymph # (Auto) (units (unknown) date) ([phone]) /uL unknown) (unknown) (no (unknown) (unknown) Lymph # (Auto) (units (unknown) date) 1900 ([id number]) unknown) /uL (unknown) (no (unknown) (unknown) Lymph % (Auto) (units (unknown) date) (25-40) % unknown) (unknown) (no (unknown) (unknown) Lymph % (Auto) (units (unknown) date) 32.2 (25-40) % unknown) (unknown) (no (unknown) (unknown) [facility] (26-34) PG (units (unknown) date) unknown) (unknown) (no (unknown) (unknown) MCH 29.8 (26-34) (units (unknown) date) PG unknown) (unknown) (no (unknown) (unknown) MCHC (30-36) % (units (unknown) date) unknown) (unknown) (no (unknown) (unknown) MCHC 33.1 (30-36) (units (unknown) date) % unknown) (unknown) (no (unknown) (unknown) MCV (80-100) fL (units (unknown) date) unknown) (unknown) (no (unknown) (unknown) MCV 90.0 (80-100) (units (unknown) date) fL unknown) (unknown) (no (unknown) (unknown) MDM - Chest Pain (units (unknown) date) unknown) (unknown) (no (unknown) (unknown) MDM Narrative (units ( unknown) date) unknown) (unknown) (no (unknown) (unknown) MR#: [id number] (units (unknown) date) unknown) (unknown) (no (unknown) (unknown) Magnesium (units (unkn own) date) (1.6-2.3) mg/dL unknown) (unknown) (no (unknown) (unknown) Magnesium 2.0 (units ( unknown) date) (1.6-2.3) mg/dL unknown) (unknown) (no (unknown) (unknown) Mediastinum:? (units ( unknown) date) Mediastinal unknown) contours appear normal.? Heart size is normal.? (unknown) (no (unknown) (unknown) Medical decision (units (unknown) date) making narrative: unknown) (unknown) (no (unknown) (unknown) Mode of arrival: (units (unknown) date) Ambulatory unknown) (unknown) (no (unknown) (unknown) [place] # (Auto) (units ( unknown) date) (0-900) /uL unknown) (unknown) (no (unknown) (unknown) [place] # (Auto) 600 (units (unknown) date) (0-900) /uL unknown) (unknown) (no (unknown) (unknown) [place] % (Auto) (units ( unknown) date) (3-14) % unknown) (unknown) (no (unknown) (unknown) [place] % (Auto) 10.2 (units (unknown) date) (3-14) % unknown) (unknown) (no (unknown) (unknown) NECK: Supple, full (units (unknown) date) range of motion unknown) (unknown) (no (unknown) (unknown) NEUROLOGICAL: (units ( unknown) date) Cranial nerves II unknown) through XII grossly intact. Moving all (unknown) (no (unknown) (unknown) NSR rate of 73, pr (units (unknown) date) 144, qrs 90, Qtc unknown) 409. No acute ST changes. (unknown) (no (unknown) (unknown) Narrative (units (unkn own) date) unknown) (unknown) (no (unknown) (unknown) Neut # (Auto) (units ( unknown) date) (5576-0835) /uL unknown) (unknown) (no (unknown) (unknown) Neut # (Auto) 3200 (units (unknown) date) (0847-8755) /uL unknown) (unknown) (no (unknown) (unknown) Neut % (Auto) (units ( unknown) date) (50-75) % unknown) (unknown) (no (unknown) (unknown) Neut % (Auto) 53.6 (units (unknown) date) (50-75) % unknown) (unknown) (no (unknown) (unknown) Nitroglycerin (units ( unknown) date) (Nitroglycerin 0.4 unknown) Mg Sl Tab) 0.4 mg SL [id number] PRN (unknown) (no (unknown) (unknown) Ordered: (units (unkno wn) date) unknown) (unknown) (no (unknown) (unknown) Ordering Provider: (units (unknown) date) Vignesh Garcia D.O. unknown) (unknown) (no (unknown) (unknown) Orders (units (unkno wn) date) unknown) (unknown) (no (unknown) (unknown) Oxygen Delivery (units (unknown) date) Method 10/26/22 unknown) 17:50 (unknown) (no (unknown) (unknown) Oxygen Delivery (units (unknown) date) Method Room Air unknown) (unknown) (no (unknown) (unknown) Oxygen Delivery (units (unknown) date) Method unknown) (unknown) (no (unknown) (unknown) PRN Reason: Chest (units (unknown) date) Pain unknown) (unknown) (no (unknown) (unknown) PROCEDURE:? XR (units (unknown) date) CHEST 1V unknown) (unknown) (no (unknown) (unknown) PT (10.1-12.7) (units (unknown) date) SECONDS unknown) (unknown) (no (unknown) (unknown) PT 14.3 H (units (unkn own) date) (10.1-12.7) SECONDS unknown) (unknown) (no (unknown) (unknown) Ramirez Garcia MD (units (unknown) date) [Physician] unknown) (unknown) (no (unknown) (unknown) Patient (units (unkno wn) date) Disposition: Home unknown) (unknown) (no (unknown) (unknown) Patient History (units (unknown) date) unknown) (unknown) (no (unknown) (unknown) Patient states she (units (unknown) date) is never had a unknown) stress test or cardiac catheterization. (unknown) (no (unknown) (unknown) Patient: (units (unkno wn) date) Mona Hunter MR#: unknown) [id number] (unknown) (no (unknown) (unknown) Patient: (units (unkno wn) date) ElsaMona unknown) (unknown) (no (unknown) (unknown) Please return for (units (unknown) date) new or worsening unknown) chest pain, passing out, shortness of breath, (unknown) (no (unknown) (unknown) Plt Count (units (unkn own) date) (150-400) X103/uL unknown) (unknown) (no (unknown) (unknown) Plt Count 284 (units ( unknown) date) (150-400) X103/uL unknown) (unknown) (no (unknown) (unknown) Potassium (units (unkn own) date) (3.4-5.1) mmol/L unknown) (unknown) (no (unknown) (unknown) Potassium 3.7 (units ( unknown) date) (3.4-5.1) mmol/L unknown) (unknown) (no (unknown) (unknown) Prior ECG (units (unkn own) date) tracings: available unknown) for review (unknown) (no (unknown) (unknown) Procedure: XR (units ( unknown) date) chest 1V unknown) (unknown) (no (unknown) (unknown) Pulse Oximetry 96 (units (unknown) date) unknown) (unknown) (no (unknown) (unknown) Pulse Oximetry 97 (units (unknown) date) 96 unknown) (unknown) (no (unknown) (unknown) Pulse Oximetry 97 (units (unknown) date) unknown) (unknown) (no (unknown) (unknown) Pulse Oximetry 98 (units (unknown) date) 97 unknown) (unknown) (no (unknown) (unknown) Pulse Oximetry 98 (units (unknown) date) 98 unknown) (unknown) (no (unknown) (unknown) Pulse Oximetry 99 (units (unknown) date) 10/26/22 17:50 unknown) (unknown) (no (unknown) (unknown) Pulse Oximetry 99 (units (unknown) date) 99 99 unknown) (unknown) (no (unknown) (unknown) Pulse Oximetry (units (unknown) date) unknown) (unknown) (no (unknown) (unknown) Pulse Rate 74 72 (units (unknown) date) unknown) (unknown) (no (unknown) (unknown) Pulse Rate 78 78 (units (unknown) date) unknown) (unknown) (no (unknown) (unknown) Pulse Rate 78 80 (units (unknown) date) unknown) (unknown) (no (unknown) (unknown) Pulse Rate 78 (units ( unknown) date) unknown) (unknown) (no (unknown) (unknown) Pulse Rate 79 75 (units (unknown) date) unknown) (unknown) (no (unknown) (unknown) Pulse Rate 80 80 (units (unknown) date) unknown) (unknown) (no (unknown) (unknown) Pulse Rate 80 (units ( unknown) date) unknown) (unknown) (no (unknown) (unknown) Pulse Rate 86 (units ( unknown) date) 10/26/22 17:50 unknown) (unknown) (no (unknown) (unknown) Pulse Rate 86 78 (units (unknown) date) 81 unknown) (unknown) (no (unknown) (unknown) RBC (4.0-5.2) (units ( unknown) date) X106/uL unknown) (unknown) (no (unknown) (unknown) RBC 4.00 (4.0-5.2) (units (unknown) date) X106/uL unknown) (unknown) (no (unknown) (unknown) RDW (11.6-14.8) % (units (unknown) date) unknown) (unknown) (no (unknown) (unknown) RDW 14.7 (units (unkno wn) date) (11.6-14.8) % unknown) (unknown) (no (unknown) (unknown) RESPIRATORY: (units (u nknown) date) Breath sounds equal unknown) bilaterally, no wheezes rales or rhonchi. (unknown) (no (unknown) (unknown) ROS Unobtainable: (units (unknown) date) All systems unknown) reviewed + are unremarkable except as noted in HPI (unknown) (no (unknown) (unknown) Radiologist's (units ( unknown) date) Impression: unknown) (unknown) (no (unknown) (unknown) Referrals: (units (unk nown) date) unknown) (unknown) (no (unknown) (unknown) Related Data (units (u nknown) date) unknown) (unknown) (no (unknown) (unknown) Respiratory Rate (units (unknown) date) 18 10/26/22 17:50 unknown) (unknown) (no (unknown) (unknown) Respiratory Rate (units (unknown) date) 18 unknown) (unknown) (no (unknown) (unknown) Respiratory Rate (units (unknown) date) 19 24 unknown) (unknown) (no (unknown) (unknown) Respiratory Rate (units (unknown) date) 20 19 unknown) (unknown) (no (unknown) (unknown) Respiratory Rate (units (unknown) date) 21 35 H unknown) (unknown) (no (unknown) (unknown) Respiratory Rate (units (unknown) date) 23 28 H unknown) (unknown) (no (unknown) (unknown) Respiratory Rate (units (unknown) date) 23 unknown) (unknown) (no (unknown) (unknown) Respiratory Rate (units (unknown) date) unknown) (unknown) (no (unknown) (unknown) Result diagrams: (units (unknown) date) unknown) (unknown) (no (unknown) (unknown) Review of Systems (units (unknown) date) unknown) (unknown) (no (unknown) (unknown) SARS-CoV-2 (PCR) (units (unknown) date) (Negative) unknown) (unknown) (no (unknown) (unknown) SARS-CoV-2 (PCR) (units (unknown) date) Negative (Negative) unknown) (unknown) (no (unknown) (unknown) SKIN: Warm, dry, (units (unknown) date) no petechiae, no unknown) rashes or lesions. (unknown) (no (unknown) (unknown) Signed By: (units (unk nown) date) unknown) (unknown) (no (unknown) (unknown) Signed (units (unkno wn) date) unknown) (unknown) (no (unknown) (unknown) Sinus rhythm rate (units (unknown) date) of 79 CA 138 QRS of unknown) 94 QTC 415. No acute ST elevation or (unknown) (no (unknown) (unknown) Smoking Status: (units (unknown) date) Current every day unknown) smoker (unknown) (no (unknown) (unknown) Social History (units (unknown) date) (Reviewed 10/26/22 unknown) @ 19:36 by Ruthy Vance DO) (unknown) (no (unknown) (unknown) Sodium (137-145) (units (unknown) date) mmol/L unknown) (unknown) (no (unknown) (unknown) Sodium 141 (units (unk n) date) (137-145) mmol/L unknown) (unknown) (no (unknown) (unknown) Source: patient (units (unknown) date) unknown) (unknown) (no (unknown) (unknown) Stand Alone Forms: (units (unknown) date) Patient Portal/API unknown) (unknown) (no (unknown) (unknown) Stated Complaint: (units (unknown) date) Chest pain, unknown) squeezing, light headed, 'not right' (unknown) (no (unknown) (unknown) States she is (units ( unknown) date) allergic to sulfa unknown) tetracycline. She does smoke tobacco, denies (unknown) (no (unknown) (unknown) Stop: 10/26/22 (units (unknown) date) 17:57 unknown) (unknown) (no (unknown) (unknown) Substance Use (units ( unknown) date) Type: does not use unknown) (unknown) (no (unknown) (unknown) Sulfa (Sulfonamide (units (unknown) date) Allergy Redness of unknown) Verified 10/26/22 17:50 (unknown) (no (unknown) (unknown) Surgical changes (units (unknown) date) and devices:? unknown) None.? (unknown) (no (unknown) (unknown) TECHNIQUE:? One (units (unknown) date) view of the chest unknown) was acquired.? (unknown) (no (unknown) (unknown) Temperature 98.1 F (units (unknown) date) 10/26/22 17:50 unknown) (unknown) (no (unknown) (unknown) Temperature 98.1 F (units (unknown) date) unknown) (unknown) (no (unknown) (unknown) Temperature (units (un known) date) unknown) (unknown) (no (unknown) (unknown) This is a (units (unkno wn) date) 62-year-old female unknown) with history of factor 8 elevation, 3 prior strokes (unknown) (no (unknown) (unknown) This is a (units (unkn own) date) 62-year-old female unknown) with history of hypertension, diabetes, factor 8 (unknown) (no (unknown) (unknown) Time Seen by (units (u nknown) date) Provider: 10/26/22 unknown) 19:14 (unknown) (no (unknown) (unknown) Time: 21:43 (units (un known) date) unknown) (unknown) (no (unknown) (unknown) Total Bilirubin (units (unknown) date) (0.2-1.3) mg/dL unknown) (unknown) (no (unknown) (unknown) Total Bilirubin (units (unknown) date) 0.9 (0.2-1.3) mg/dL unknown) (unknown) (no (unknown) (unknown) Total Creatine (units (unknown) date) Kinase (30-135) U/L unknown) (unknown) (no (unknown) (unknown) Total Creatine (units (unknown) date) Kinase 143 H unknown) (30-135) U/L (unknown) (no (unknown) (unknown) Total Protein (units ( unknown) date) (6.3-8.2) g/dL unknown) (unknown) (no (unknown) (unknown) Total Protein 7.9 (units (unknown) date) (6.3-8.2) g/dL unknown) (unknown) (no (unknown) (unknown) Troponin I < 0.012 (units (unknown) date) < 0.012 unknown) (0.01-0.034) ng/mL (unknown) (no (unknown) (unknown) Troponin I (units (unk nown) date) (0.01-0.034) ng/mL unknown) (unknown) (no (unknown) (unknown) Friday. (units (unkno wn) date) unknown) (unknown) (no (unknown) (unknown) Ur Culture (units (unk nown) date) Indicated? Cult not unknown) indicated (unknown) (no (unknown) (unknown) Ur Culture (units (unk nown) date) Indicated? unknown) (unknown) (no (unknown) (unknown) Urine Bacteria (units (unknown) date) (None) unknown) (unknown) (no (unknown) (unknown) Urine Bacteria (units (unknown) date) None seen (None) unknown) (unknown) (no (unknown) (unknown) Urine Dip (units (unkn own) date) unknown) (unknown) (no (unknown) (unknown) Urine RBC (units (unkn own) date) (0-5/HPF) unknown) (unknown) (no (unknown) (unknown) Urine RBC None (units (unknown) date) seen (0-5/HPF) unknown) (unknown) (no (unknown) (unknown) Urine Specific (units (unknown) date) Ophelia 1.015 unknown) (unknown) (no (unknown) (unknown) Urine WBC (units (unkn own) date) (0-5/HPF) unknown) (unknown) (no (unknown) (unknown) Urine WBC 0-1/hpf (units (unknown) date) (0-5/HPF) unknown) (unknown) (no (unknown) (unknown) Vital Signs - 8 hr (units (unknown) date) unknown) (unknown) (no (unknown) (unknown) Vital Signs (units (un known) date) unknown) (unknown) (no (unknown) (unknown) Vital signs: (units (u nknown) date) unknown) (unknown) (no (unknown) (unknown) WBC (4.5-11.0) (units (unknown) date) X103/uL unknown) (unknown) (no (unknown) (unknown) WBC 5.9 (4.5-11.0) (units (unknown) date) X103/uL unknown) (unknown) (no (unknown) (unknown) We also discussed (units (unknown) date) patient myself she unknown) has an appointment this week with her (unknown) (no (unknown) (unknown) XRay Report (units (un known) date) unknown) (unknown) (no (unknown) (unknown) [Embedded Image (units (unknown) date) Not Available] unknown) (unknown) (no (unknown) (unknown) alcohol intake (units (unknown) date) frequency: 0-2 unknown) drinks per day (unknown) (no (unknown) (unknown) alcohol, denies (units (unknown) date) illicit. Primary unknown) care is Dr. Dey she has not appointment on (unknown) (no (unknown) (unknown) also notes she is (units (unknown) date) had left flank pain unknown) for the past week she states she has a (unknown) (no (unknown) (unknown) and below (units (unkn own) date) unknown) (unknown) (no (unknown) (unknown) appear (units (unkno wn) date) unknown) (unknown) (no (unknown) (unknown) been constipated. (units (unknown) date) She states in terms unknown) of surgeries she is had lithotripsies, (unknown) (no (unknown) (unknown) cardiac source. (units (unknown) date) Patient case was unknown) also discussed with Dr. Kearney from General (unknown) (no (unknown) (unknown) depression noted. (units (unknown) date) Patient has prior unknown) from 03/30/2022 with no acute changes. (unknown) (no (unknown) (unknown) describes (units (unkn own) date) intermittent rating unknown) her jaw and left arm. She felt dizzy during these (unknown) (no (unknown) (unknown) diabetes, (units (unkn own) date) hypertension unknown) dyslipidemia and prior kidney stones. 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 Lipase (unknown) (no (unknown) (unknown) episodes and felt (units (unknown) date) short of breath unknown) during episodes they resolved on their own she (unknown) (no (unknown) (unknown) extremities (units (un known) date) unknown) (unknown) (no (unknown) (unknown) guarding or (units (un known) date) rebound, rigidity, unknown) no mass (unknown) (no (unknown) (unknown) history of kidney (units (unknown) date) stones feels unknown) similar. Patient denies dysuria frequency or (unknown) (no (unknown) (unknown) in her chest. (units ( unknown) date) Patient states she unknown) has not had similar symptoms in the past. She (unknown) (no (unknown) (unknown) intact (units (unkno wn) date) unknown) (unknown) (no (unknown) (unknown) is had an (units (unkn own) date) intermittently. She unknown) is had nausea when she has a squeezing sensation (unknown) (no (unknown) (unknown) is negative and (units (unknown) date) bilirubins normal. unknown) Patient ultrasound shows possible sludge in (unknown) (no (unknown) (unknown) major changes. (units (unknown) date) Creatinine appears unknown) stable from her baseline, she does have an (unknown) (no (unknown) (unknown) moist mucous (units (u nknown) date) membranes unknown) (unknown) (no (unknown) (unknown) morning, if (units (un known) date) patient discharged unknown) home can follow-up with GI for possible (unknown) (no (unknown) (unknown) of left chest pain (units (unknown) date) squeezing radiating unknown) to her jaw arm intermittent. Has (unknown) (no (unknown) (unknown) on Eliquis, CKD (units (unknown) date) stage 3, Crohn's unknown) disease, diverticulitis, diet-controlled (unknown) (no (unknown) (unknown) outpatient ERCP (units (unknown) date) does not appear to unknown) be obstructed (unknown) (no (unknown) (unknown) pain or other new (units (unknown) date) or concerning unknown) changes. (unknown) (no (unknown) (unknown) patient has done (units (unknown) date) troponins follow up unknown) with GI for possible ERCP as an outpatient. (unknown) (no (unknown) (unknown) possible ERCP. (units (unknown) date) Referral is unknown) included below. (unknown) (no (unknown) (unknown) primary care and (units (unknown) date) will follow with unknown) them. (unknown) (no (unknown) (unknown) resolved at this (units (unknown) date) time she also notes unknown) a little bit of left flank pain. Patient (unknown) (no (unknown) (unknown) stress testing (units (unknown) date) performed. unknown) (unknown) (no (unknown) (unknown) surgery she (units (un known) date) recommends patient unknown) staying in the hospital cardiac labs that she (unknown) (no (unknown) (unknown) surgery they (units (u nknown) date) recommend trending unknown) her labs, follow up with gastroenterology for (unknown) (no (unknown) (unknown) sweating, fevers, (units (unknown) date) persistent unknown) vomiting, new right upper quadrant or abdominal (unknown) (no (unknown) (unknown) the common bile (units (unknown) date) duct. Patient's unknown) troponin negative x2. Discussed with patient (unknown) (no (unknown) (unknown) tobacco type: (units ( unknown) date) cigarettes unknown) (unknown) (no (unknown) (unknown) ultrasound today, (units (unknown) date) her liver enzymes unknown) are slightly elevated. I spoke with General (unknown) (no (unknown) (unknown) unremarkable.? (units (unknown) date) unknown) (unknown) (no (unknown) (unknown) ureteral stents, (units (unknown) date) x3 with a unknown) complete hysterectomy for endometriosis. (unknown) (no (unknown) (unknown) urgency she states (units (unknown) date) it has been a unknown) little bit more difficult to urinate. She is (unknown) (no (unknown) (unknown) woke up from a nap (units (unknown) date) at about 1300 day unknown) had left-sided chest squeezing which he (unknown) (no (unknown) (unknown) workup. Talk with (units (unknown) date) your physician at unknown) your appointment on Friday about having (unknown) (no (unknown) (unknown) would like to keep (units (unknown) date) her chest pain unknown) labs, discussed that I am concerned for (unknown) (no (unknown) (unknown) would recommend (units (unknown) date) LFTs to be trended. unknown) If patient chooses return home which Social History date description facility 2022-10-26 00:00 Smokes tobacco daily ([facility] Vital Signs date measurement value units 2022-10-26 00:00 BMI 20.9 kg/m2 2022-10-26 00:00 BP_diastolic 63 mmHg 2022-10-26 00:00 BP_systolic 129 mmHg 2022-10-26 00:00 heart_rate 72 /min 2022-10-26 00:00 height_metric 152.4 cm 2022-10-26 00:00 height_standard 60 in 2022-10-26 00:00 o2_saturation 96 % 2022-10-26 00:00 respiration_rate 14 /min 2022-10-26 00:00 temperature_metric 36.72 C 2022-10-26 00:00 temperature_standard 98.1 F 2022-10-26 00:00 weight_metric 48.53 kg 2022-10-26 00:00 weight_standard 106.99 lb
[2022-10-30 23:17] LABS: BASOPHILS # (AUTO) 0.1 10^3/uL (0.0-0.1); BASOPHILS % (AUTO) 0.7 %; EOSINOPHILS # (AUTO) 0.2 10^3/uL (0.0-0.7); HCT - HEMATOCRIT 40.1 % (37.0-47.0); HGB - HEMOGLOBIN 12.3 g/dL (12.0-16.0); LYMPHOCYTES # (AUTO) 1.3 10^3/uL (1.5-3.5); LYMPHOCYTES % (AUTO) 16.4 %; MEAN CORPUSCULAR HEMOGLOBIN 28.8 pg (27.0-31.0); MEAN CORPUSCULAR HGB CONC 30.7 g/dL (32.0-36.0); MEAN CORPUSCULAR VOLUME 93.9 fL (81.0-99.0); MEAN PLATELET VOLUME 9.9 fL (7.9-10.8); MONOCYTES # (AUTO) 0.8 10^3/uL (0.0-1.0); NEUTROPHILS # (AUTO) 5.4 10^3/uL (1.5-6.6); NEUTROPHILS % (AUTO) 69.8 %; PLT - PLATELET COUNT 338 10^3/uL (130-450); RED BLOOD COUNT 4.27 10^6/uL (4.20-5.40); RED CELL DISTRIBUTION WIDTH 15.2 % (12.0-15.0); WHITE BLOOD COUNT 7.7 x10^3/uL (4.8-10.8)
[2022-10-30 23:30] LABS: ALBUMIN/GLOBULIN RATIO 1.1 (1.0-2.2); BILIRUBIN,TOTAL 2.1 mg/dL (0.2-1.0); CALCIUM 9.5 mg/dL (8.5-10.3); CREATININE 2.4 mg/dL (0.4-1.0); POTASSIUM 4.2 mmol/L (3.5-5.0); TOTAL PROTEIN 7.8 g/dL (6.7-8.2)
--- NOTE | 2022-10-30 23:59 | CT Report ---
PROCEDURE: HEAD WO INDICATIONS: dizziness TECHNIQUE: Noncontrast 4.5 mm thick angled axial sections acquired from the foramen magnum to the vertex. For r adiation dose reduction, the following was used: automated exposure control, adjustment of mA and/or kV according to patient size. COMPARISON: CT head 08/23/2016. FINDINGS: Image quality: Excellent. CSF spaces: Basal cisterns are patent. No extra-axial fluid collections. Ventricles are normal in size and shape. Brain: No intracranial hemorrhage, mass, or mass effect. There is encephalomalacia redemonstrated wi thin the medial right occipital lobe consistent with sequelae of a prior infarct. Vo-white matter i nterface otherwise appears preserved. Skull and face: Calvarium and visualized facial bones are intact, without suspicious lesions. Sinuses: Visualized sinuses and mastoids are clear. IMPRESSION: 1. No acute intracranial abnormality. 2. Medial right temporal lobe encephalomalacia redemonstrated consistent with sequelae of a prior inf arct. Reviewed by: Davi Caro MD on 10/31/2022 12:08 AM PST Approved by: Davi Caro MD on 10/31/2022 12:08 AM PST Station ID: [id number]
--- NOTE | 2022-10-31 | XRAY Report ---
PROCEDURE: Chest 1 View X-Ray INDICATIONS: Chest pain TECHNIQUE: One view of the chest was acquired. COMPARISON: None. FINDINGS: Surgical changes and devices: None. Lungs and pleura: No pleural effusions or pneumothorax. Lungs are clear. Mediastinum: Mediastinal contours appear normal. Heart size is normal. Bones and chest wall: No suspicious bony lesions. Overlying soft tissues appear unremarkable. IMPRESSION: 1. No acute cardiopulmonary disease. Reviewed by: Davi Caro MD on 10/31/2022 12:09 AM [facility] Approved by: Davi Caro MD on 10/31/2022 12:09 AM [facility] Station ID: [id number]
[2022-10-31 05:10] VITALS: BP 146/75
== END 2022-10-31 05:38 | disposition home or self-care (01) ==
LOC: ED 22:34
DX: F13.99 Sedative, hypnotic or anxiolytic use, unspecified with unspecified sedative, hypnotic or anxiolytic-induced disorder (principal); T50.905A Adverse effect of unspecified drugs, medicaments and biological substances, initial encounter; R42 Dizziness and giddiness; Z86.73 Personal history of transient ischemic attack (TIA), and cerebral infarction without residual deficits; Z79.01 Long term (current) use of anticoagulants; E11.22 Type 2 diabetes mellitus with diabetic chronic kidney disease; I12.9 Hypertensive chronic kidney disease with stage 1 through stage 4 chronic kidney disease, or unspecified chronic kidney disease; N18.30 Chronic kidney disease, stage 3 unspecified; E03.9 Hypothyroidism, unspecified; F32.A Depression, unspecified
CPT/HCPCS: 36415; 80053; 83690; 84484; 85025; 93005; 99283; 99284

== ENCOUNTER 2022-11-07 10:12 | Emergency (ER) | payer MEDICARE ==
[2022-11-07] MEDS ORDERED: diazePAM INJ 5 MG/ML SYRINGE IVP STA (10:29)
[2022-11-07] MEDS ORDERED: diazePAM INJ 5 MG/ML SYRINGE ONE (10:30)
[2022-11-07] MEDS ORDERED: SODIUM CHLORIDE 0.9% 1,000 ML IV STA ×5 (10:32→17:07)
--- OUTSIDE RECORDS SUMMARY | 2022-11-07 10:32 | EXTERNAL MEDICAL SUMMARY RPT | Continuity of Care Document ---
:1960 Author Organization [facility] Address [address] [place] [address] Phone Care Team Providers Name Role Phone Arcenio Dey Unavailable Unavailable Allergies and Intolerances date description facility type (no date) Sulfa (Sulfonamide Antibiotics) [facility] (unknown) Encounters No information. Functional Status No information. Immunizations No information. Medications No information. Problems date description facility 2022-10-26 00:00 Chest pain [facility] 2022-10-26 00:00 Elevated liver function tests [facility] ospital Procedures date description facility 2022-10-26 00:00 X-ray of chest, single view [facility] 2022-10-26 00:00 US abdomen complete [facility] Results/Labs test date author facility value [...] wn) date) unknown) (unknown) (no (unknown) (unknown) [address] (units (unkno wn) date) unknown) (unknown) (no (unknown) (unknown) [address] [place] [address] (units (unknown) date) unknown) (unknown) (no (unknown) (unknown) Accession Number: (units (unknown) date) [id number] unknown) (unknown) (no (unknown) (unknown) Age/Sex: 62 / F (units (unknown) date) Date of Service: unknown) (unknown) (no (unknown) (unknown) MAGY Escobedo (units ( unknown) date) [address] unknown) (unknown) (no (unknown) (unknown) Approved by: Robert (units (unknown) date) Ana Maria Arriaga on unknown) 10/26/2022 at 18:42 (unknown) (no (unknown) (unknown) Bones and chest (units (unknown) date) wall: No unknown) suspicious bony lesions. Overlying soft tissues (unknown) (no (unknown) (unknown) COMPARISON: (units (un known) date) [facility], unknown) CR, XR CHEST 1V, 03/30/2022, 18:39. (unknown) (no (unknown) (unknown) : 1960 (units (unknown) date) Acct:[id number] unknown) (unknown) (no (unknown) (unknown) Dictated by: Robert (units (unknown) date) Ana Maria Arriaga on unknown) 10/26/2022 at 18:40 (unknown) (no (unknown) (unknown) FINDINGS: (units (unkn own) date) unknown) (unknown) (no (unknown) (unknown) IMPRESSION: No (units (unknown) date) acute unknown) cardiopulmonary pathology. (unknown) (no (unknown) (unknown) INDICATIONS: (units (u nknown) date) chest pain unknown) (unknown) (no (unknown) (unknown) [facility] (units (unknown) date) unknown) (unknown) (no [...] (unknown) (unknown) : 1960 (units (unknown) date) Acct:[id number] unknown) (unknown) (no (unknown) (unknown) Date of [...] date) Signs: unknown) (unknown) (no (unknown) (unknown) [facility] (units (unknown) date) [address] unknown) [place] [address] (unknown) (no (unknown) (unknown) Lab Data (units [...] Lymph # (Auto) (units (unknown) date) 1900 (4470-0960) unknown) /uL (unknown) (no (unknown) (unknown) Lymph [...] date) Ambulatory unknown) (unknown) (no (unknown) (unknown) [place] # (Auto) (units ( unknown) date) 600 (0-900) /uL unknown) (unknown) (no (unknown) (unknown) [place] % (Auto) (units ( unknown) date) 10.2 (3-14) % unknown) (unknown) (no (unknown) (unknown) Neut # (Auto) (units ( unknown) date) 3200 (5328-4490) unknown) /uL (unknown) (no (unknown) (unknown) Neut [...] (unkno wn) date) Mona Hunter MR#: unknown) [id number] (unknown) (no (unknown) (unknown) Plt Count 284 [...] (unknown) (unknown) Urine Specific (units (unknown) date) [place] 1.015 unknown) (unknown) (no (unknown) (unknown) Vital [...] wn) date) unknown) (unknown) (no (unknown) (unknown) [address] (units (unkno wn) date) unknown) (unknown) (no (unknown) (unknown) [address] [place] [address] (units (unknown) date) unknown) (unknown) (no (unknown) (unknown) 7.5 mm. There (units ( unknown) date) appears to be unknown) debris/sludge or mural thickening involving the (unknown) (no (unknown) (unknown) 8.8 cm long; (units (u nknown) date) unknown) (unknown) (no (unknown) (unknown) Accession Number: (units (unknown) date) [id number] unknown) (unknown) (no (unknown) (unknown) Age/Sex: 62 / F (units (unknown) date) Date of Service: unknown) (unknown) (no (unknown) (unknown) [place], [place] (units ( unknown) date) [address] unknown) (unknown) (no (unknown) (unknown) Aorta: Visualized (units (unknown) date) aorta is normal in unknown) caliber at less than 3 cm. (unknown) (no (unknown) (unknown) Approved by: (units (u nknown) date) Matthew Barrera unknown) Ana Maria on 10/26/2022 at 20:46 (unknown) (no (unknown) (unknown) Biliary ducts: (units (unknown) date) Intrahepatic bile unknown) ducts are slightly dilated. Extrahepatic (unknown) (no (unknown) (unknown) COMPARISON: None. (units (unknown) date) unknown) (unknown) (no (unknown) (unknown) : 1960 (units (unknown) date) Acct:[id number] unknown) (unknown) (no (unknown) (unknown) Dictated by: [...] less than 2.5 (unknown) (no (unknown) (unknown) [facility] (units (unknown) date) unknown) (unknown) (no [...] (unknown) (unknown) : 1960 (units (unknown) date) Acct:[id number] unknown) (unknown) (no (unknown) (unknown) Date of [...] Arcenio Dey (units (unk nown) date) MD aMdhav unknown) [Primary Care Provider] (unknown) (no (unknown) [...] date) Signs: unknown) (unknown) (no (unknown) (unknown) [facility] (units (unknown) date) [address] unknown) [place] [address] (unknown) (no (unknown) (unknown) Lab Data (units [...] Lymph # (Auto) (units (unknown) date) 1900 (3179-4169) unknown) /uL (unknown) (no (unknown) (unknown) Lymph [...] date) Ambulatory unknown) (unknown) (no (unknown) (unknown) [place] # (Auto) (units ( unknown) date) 600 (0-900) /uL unknown) (unknown) (no (unknown) (unknown) [place] % (Auto) (units ( unknown) date) 10.2 (3-14) % unknown) (unknown) (no (unknown) (unknown) Neut # (Auto) (units ( unknown) date) 3200 (8383-0911) unknown) /uL (unknown) (no (unknown) (unknown) Neut [...] (unkno wn) date) Mona Hunter MR#: unknown) [id number] (unknown) (no (unknown) (unknown) Plt Count 284 [...] (unknown) (unknown) Urine Specific (units (unknown) date) [place] 1.015 unknown) (unknown) (no (unknown) (unknown) Vital [...] date) unknown) (unknown) (no (unknown) (unknown) [address] [place] [address] (units (unknown) date) unknown) (unknown) (no (unknown) [...] (unknown) (unknown) Accession Number: (units (unknown) date) [id number] ?? unknown) (unknown) (no (unknown) (unknown) Acct:[id number] (units (unknown) date) unknown) (unknown) (no (unknown) (unknown) Age/Sex: 62 / F (units (unknown) date) unknown) (unknown) (no (unknown) (unknown) Alkaline (units (unkno wn) date) Phosphatase 424 H unknown) (38-126) U/L (unknown) (no (unknown) (unknown) Allergies (units (unkn own) date) unknown) (unknown) (no (unknown) (unknown) Allergy/AdvReac (units (unknown) date) Type Severity unknown) Reaction Status Date / Time (unknown) (no (unknown) (unknown) [place], [place] (units ( unknown) date) [address] unknown) (unknown) (no (unknown) (unknown) Antibiotics) Skin [...] (unknown) (unknown) COMPARISON:? (units (u nknown) date) [facility], unknown) CR, XR CHEST 1V, 03/30/2022, [...] (unknown) (unknown) : 1960 (units (unknown) date) Acct:[id number] unknown) (unknown) (no (unknown) (unknown) : 1960 [...] (unknown) date) unknown) (unknown) (no (unknown) (unknown) [facility] (units (unknown) date) [address] unknown) [place] [address] (unknown) (no (unknown) (unknown) [facility] (units (unknown) date) unknown) (unknown) (no [...] Lymph # (Auto) (units (unknown) date) 1900 (6705-6355) unknown) /uL (unknown) (no (unknown) (unknown) Lymph [...] date) unknown) (unknown) (no (unknown) (unknown) MR#: [id number] (units (unknown) date) unknown) (unknown) (no (unknown) [...] date) Ambulatory unknown) (unknown) (no (unknown) (unknown) [place] # (Auto) 600 (units (unknown) date) (0-900) /uL unknown) (unknown) (no (unknown) (unknown) [place] % (Auto) (units ( unknown) date) 10.2 [...] # (Auto) (units ( unknown) date) 3200 (4203-1532) unknown) /uL (unknown) (no (unknown) (unknown) Neut [...] (units (unkno wn) date) ElsaMona MR#: unknown) [id number] (unknown) (no (unknown) (unknown) Patient: (units (unkno [...] (unknown) (unknown) Urine Specific (units (unknown) date) [place] 1.015 unknown) (unknown) (no (unknown) (unknown) Vital [...] date) unknown) (unknown) (no (unknown) (unknown) [address] [place] [address] (units (unknown) date) unknown) (unknown) (no (unknown) [...] (unknown) (unknown) Accession Number: (units (unknown) date) [id number] ?? unknown) (unknown) (no (unknown) (unknown) Acct:[id number] (units (unknown) date) unknown) (unknown) (no (unknown) [...] Date / Time (unknown) (no (unknown) (unknown) [place], [place] (units ( unknown) date) [address] unknown) (unknown) (no (unknown) (unknown) Antibiotics) Skin [...] (unknown) (unknown) COMPARISON:? (units (u nknown) date) [facility], unknown) CR, XR CHEST 1V, 03/30/2022, [...] (unknown) (unknown) : 1960 (units (unknown) date) Acct:[id number] unknown) (unknown) (no (unknown) (unknown) : 1960 [...] (unknown) date) unknown) (unknown) (no (unknown) (unknown) [facility] (units (unknown) date) [address] unknown) [place] [address] (unknown) (no (unknown) (unknown) [facility] (units (unknown) date) unknown) (unknown) (no [...] (unknown) Lymph # (Auto) (units (unknown) date) (6294-4761) /uL unknown) (unknown) (no (unknown) (unknown) Lymph # (Auto) (units (unknown) date) 1900 (3018-7355) unknown) /uL (unknown) (no (unknown) (unknown) Lymph [...] date) unknown) (unknown) (no (unknown) (unknown) MR#: [id number] (units (unknown) date) unknown) (unknown) (no (unknown) [...] date) Ambulatory unknown) (unknown) (no (unknown) (unknown) [place] # (Auto) (units ( unknown) date) (0-900) /uL unknown) (unknown) (no (unknown) (unknown) [place] # (Auto) 600 (units (unknown) date) (0-900) /uL unknown) (unknown) (no (unknown) (unknown) [place] % (Auto) (units ( unknown) date) (3-14) % unknown) (unknown) (no (unknown) (unknown) [place] % (Auto) (units ( unknown) date) 10.2 [...] Neut # (Auto) (units ( unknown) date) (1100-1478) /uL unknown) (unknown) (no (unknown) (unknown) Neut # (Auto) (units ( unknown) date) 3200 (0781-4755) unknown) /uL (unknown) (no (unknown) (unknown) Neut % (Auto) (units ( unknown) date) (50-75) % unknown) (unknown) (no (unknown) (unknown) Neut % (Auto) (units ( unknown) date) 53.6 (50-75) % unknown) (unknown) (no (unknown) (unknown) Nitroglycerin (units ( unknown) date) (Nitroglycerin 0.4 unknown) Mg Sl Tab) 0.4 mg SL [id number] PRN (unknown) (no (unknown) (unknown) Ordered: (units [...] (unkno wn) date) Mona Hunter MR#: unknown) [id number] (unknown) (no (unknown) (unknown) Patient: (units (unkno [...] (unknown) (unknown) Urine Specific (units (unknown) date) [place] 1.015 unknown) (unknown) (no (unknown) (unknown) Urine [...] date) unknown) (unknown) (no (unknown) (unknown) [address] (units (unknown) date) unknown) (unknown) (no [...] (unknown) (unknown) Accession Number: (units (unknown) date) [id number] ?? unknown) (unknown) (no (unknown) (unknown) Acct:[id number] (units (unknown) date) unknown) (unknown) (no (unknown) [...] Date / Time (unknown) (no (unknown) (unknown) [place], [place] (units ( unknown) date) [address] unknown) (unknown) (no (unknown) (unknown) Antibiotics) Skin [...] (unknown) (unknown) COMPARISON:? (units (u nknown) date) [facility], unknown) CR, XR CHEST 1V, 03/30/2022, [...] (unknown) (unknown) : 1960 (units (unknown) date) Acct:[id number] unknown) (unknown) (no (unknown) (unknown) : 1960 [...] (unknown) date) unknown) (unknown) (no (unknown) (unknown) [facility] (units (unknown) date) [address] unknown) [place] [address] (unknown) (no (unknown) (unknown) [facility] (units (unknown) date) unknown) (unknown) (no [...] (unknown) Lymph # (Auto) (units (unknown) date) (0275-4242) /uL unknown) (unknown) (no (unknown) (unknown) Lymph # (Auto) (units (unknown) date) 1900 (9685-9734) unknown) /uL (unknown) (no (unknown) (unknown) Lymph [...] date) unknown) (unknown) (no (unknown) (unknown) MR#: [id number] (units (unknown) date) unknown) (unknown) (no (unknown) [...] date) Ambulatory unknown) (unknown) (no (unknown) (unknown) [place] # (Auto) (units ( unknown) date) (0-900) /uL unknown) (unknown) (no (unknown) (unknown) [place] # (Auto) 600 (units (unknown) date) (0-900) /uL unknown) (unknown) (no (unknown) (unknown) [place] % (Auto) (units ( unknown) date) (3-14) % unknown) (unknown) (no (unknown) (unknown) [place] % (Auto) (units ( unknown) date) 10.2 [...] Neut # (Auto) (units ( unknown) date) (7914-5616) /uL unknown) (unknown) (no (unknown) (unknown) Neut # (Auto) (units ( unknown) date) 3200 (4239-8267) unknown) /uL (unknown) (no (unknown) (unknown) Neut % (Auto) (units ( unknown) date) (50-75) % unknown) (unknown) (no (unknown) (unknown) Neut % (Auto) (units ( unknown) date) 53.6 (50-75) % unknown) (unknown) (no (unknown) (unknown) Nitroglycerin (units ( unknown) date) (Nitroglycerin 0.4 unknown) Mg Sl Tab) 0.4 mg SL [id number] PRN (unknown) (no (unknown) (unknown) Ordered: (units [...] (unkno wn) date) Mona Hunter MR#: unknown) [id number] (unknown) (no (unknown) (unknown) Patient: (units (unkno [...] rhythm rate (units (unknown) date) of 79 [place] 138 QRS unknown) of 94 QTC 415. [...] (unknown) (unknown) Urine Specific (units (unknown) date) [place] 1.015 unknown) (unknown) (no (unknown) (unknown) Urine [...] date) unknown) (unknown) (no (unknown) (unknown) [address] [place] [address] (units (unknown) date) unknown) (unknown) (no (unknown) [...] (unknown) (unknown) Accession Number: (units (unknown) date) [id number] ?? unknown) (unknown) (no (unknown) (unknown) Acct:[id number] (units (unknown) date) unknown) (unknown) (no (unknown) [...] Date / Time (unknown) (no (unknown) (unknown) [place], [place] (units ( unknown) date) [address] unknown) (unknown) (no (unknown) (unknown) Antibiotics) Skin [...] (unknown) (unknown) COMPARISON:? (units (u nknown) date) [facility], unknown) CR, XR CHEST 1V, 03/30/2022, [...] (unknown) (unknown) : 1960 (units (unknown) date) Acct:[id number] unknown) (unknown) (no (unknown) (unknown) : 1960 [...] (unknown) date) unknown) (unknown) (no (unknown) (unknown) [facility] (units (unknown) date) [address] unknown) [place] [address] (unknown) (no (unknown) (unknown) [facility] (units (unknown) date) unknown) (unknown) (no [...] (unknown) Lymph # (Auto) (units (unknown) date) (7866-9413) /uL unknown) (unknown) (no (unknown) (unknown) Lymph # (Auto) (units (unknown) date) 1900 (5972-1462) unknown) /uL (unknown) (no (unknown) (unknown) Lymph [...] date) unknown) (unknown) (no (unknown) (unknown) MR#: [id number] (units (unknown) date) unknown) (unknown) (no (unknown) [...] date) Ambulatory unknown) (unknown) (no (unknown) (unknown) [place] # (Auto) (units ( unknown) date) (0-900) /uL unknown) (unknown) (no (unknown) (unknown) [place] # (Auto) 600 (units (unknown) date) (0-900) /uL unknown) (unknown) (no (unknown) (unknown) [place] % (Auto) (units ( unknown) date) (3-14) % unknown) (unknown) (no (unknown) (unknown) [place] % (Auto) (units ( unknown) date) 10.2 [...] Neut # (Auto) (units ( unknown) date) (9564-3860) /uL unknown) (unknown) (no (unknown) (unknown) Neut # (Auto) (units ( unknown) date) 3200 (0309-8091) unknown) /uL (unknown) (no (unknown) (unknown) Neut % (Auto) (units ( unknown) date) (50-75) % unknown) (unknown) (no (unknown) (unknown) Neut % (Auto) (units ( unknown) date) 53.6 (50-75) % unknown) (unknown) (no (unknown) (unknown) Nitroglycerin (units ( unknown) date) (Nitroglycerin 0.4 unknown) Mg Sl Tab) 0.4 mg SL [id number] PRN (unknown) (no (unknown) (unknown) Ordered: (units [...] (unkno wn) date) Mona Hunter MR#: unknown) [id number] (unknown) (no (unknown) (unknown) Patient: (units (unkno [...] rhythm rate (units (unknown) date) of 79 [place] 138 QRS unknown) of 94 QTC 415. [...] (unknown) (unknown) Urine Specific (units (unknown) date) [place] 1.015 unknown) (unknown) (no (unknown) (unknown) Urine [...] date) unknown) (unknown) (no (unknown) (unknown) [address] [place] [address] (units (unknown) date) unknown) (unknown) (no (unknown) [...] (unknown) (unknown) Accession Number: (units (unknown) date) [id number] ?? unknown) (unknown) (no (unknown) (unknown) Acct:[id number] (units (unknown) date) unknown) (unknown) (no (unknown) [...] Date / Time (unknown) (no (unknown) (unknown) [place], [place] (units ( unknown) date) [address] unknown) (unknown) (no (unknown) (unknown) Antibiotics) Skin [...] (unknown) (unknown) COMPARISON:? (units (u nknown) date) [facility], unknown) CR, XR CHEST 1V, 03/30/2022, [...] (unknown) (unknown) : 1960 (units (unknown) date) Acct:[id number] unknown) (unknown) (no (unknown) (unknown) : 1960 [...] (unknown) date) unknown) (unknown) (no (unknown) (unknown) [facility] (units (unknown) date) [address] unknown) [place] [address] (unknown) (no (unknown) (unknown) [facility] (units (unknown) date) unknown) (unknown) (no [...] (unknown) Lymph # (Auto) (units (unknown) date) (3941-9574) /uL unknown) (unknown) (no (unknown) (unknown) Lymph # (Auto) (units (unknown) date) 1900 (0622-8681) unknown) /uL (unknown) (no (unknown) (unknown) Lymph [...] date) unknown) (unknown) (no (unknown) (unknown) MR#: [id number] (units (unknown) date) unknown) (unknown) (no (unknown) [...] date) Ambulatory unknown) (unknown) (no (unknown) (unknown) [place] # (Auto) (units ( unknown) date) (0-900) /uL unknown) (unknown) (no (unknown) (unknown) [place] # (Auto) 600 (units (unknown) date) (0-900) /uL unknown) (unknown) (no (unknown) (unknown) [place] % (Auto) (units ( unknown) date) (3-14) % unknown) (unknown) (no (unknown) (unknown) [place] % (Auto) (units ( unknown) date) 10.2 [...] Neut # (Auto) (units ( unknown) date) (0841-0998) /uL unknown) (unknown) (no (unknown) (unknown) Neut # (Auto) (units ( unknown) date) 3200 (2758-8015) unknown) /uL (unknown) (no (unknown) (unknown) Neut % (Auto) (units ( unknown) date) (50-75) % unknown) (unknown) (no (unknown) (unknown) Neut % (Auto) (units ( unknown) date) 53.6 (50-75) % unknown) (unknown) (no (unknown) (unknown) Nitroglycerin (units ( unknown) date) (Nitroglycerin 0.4 unknown) Mg Sl Tab) 0.4 mg SL [id number] PRN (unknown) (no (unknown) (unknown) Ordered: (units [...] (unkno wn) date) Mona Hunter MR#: unknown) [id number] (unknown) (no (unknown) (unknown) Patient: (units (unkno [...] rhythm rate (units (unknown) date) of 79 [place] 138 QRS unknown) of 94 QTC 415. [...] (unknown) (unknown) Urine Specific (units (unknown) date) [place] 1.015 unknown) (unknown) (no (unknown) (unknown) Urine [...] date) unknown) (unknown) (no (unknown) (unknown) [address] [facility] (units (unknown) date) unknown) (unknown) (no [...] (unknown) (unknown) Accession Number: (units (unknown) date) [id number] ?? unknown) (unknown) (no (unknown) (unknown) Acct:[id number] (units (unknown) date) unknown) (unknown) (no (unknown) [...] Date / Time (unknown) (no (unknown) (unknown) [place], [place] (units ( unknown) date) [address] unknown) (unknown) (no (unknown) (unknown) Antibiotics) Skin [...] (unknown) (unknown) COMPARISON:? (units (u nknown) date) [facility], unknown) CR, XR CHEST 1V, 03/30/2022, [...] (unknown) (unknown) : 1960 (units (unknown) date) Acct:[id number] unknown) (unknown) (no (unknown) (unknown) : 1960 [...] (unknown) (unknown) Arcenio Dey, (units (unknown) date) [Primary Care unknown) Provider] (unknown) (no (unknown) [...] (unknown) date) unknown) (unknown) (no (unknown) (unknown) [facility] (units (unknown) date) [address] unknown) [place] [address] (unknown) (no (unknown) (unknown) [facility] (units (unknown) date) unknown) (unknown) (no [...] (unknown) Lymph # (Auto) (units (unknown) date) (9609-6389) /uL unknown) (unknown) (no (unknown) (unknown) Lymph # (Auto) (units (unknown) date) 1900 (4933-1178) unknown) /uL (unknown) (no (unknown) (unknown) Lymph [...] date) unknown) (unknown) (no (unknown) (unknown) MR#: [id number] (units (unknown) date) unknown) (unknown) (no (unknown) [...] date) Ambulatory unknown) (unknown) (no (unknown) (unknown) [place] # (Auto) (units ( unknown) date) (0-900) /uL unknown) (unknown) (no (unknown) (unknown) [place] # (Auto) 600 (units (unknown) date) (0-900) /uL unknown) (unknown) (no (unknown) (unknown) [place] % (Auto) (units ( unknown) date) (3-14) % unknown) (unknown) (no (unknown) (unknown) [place] % (Auto) 10.2 (units (unknown) date) (3-14) [...] Neut # (Auto) (units ( unknown) date) (0209-7028) /uL unknown) (unknown) (no (unknown) (unknown) Neut # (Auto) 3200 (units (unknown) date) (0857-1832) /uL unknown) (unknown) (no (unknown) (unknown) Neut % (Auto) (units ( unknown) date) (50-75) % unknown) (unknown) (no (unknown) (unknown) Neut % (Auto) 53.6 (units (unknown) date) (50-75) % unknown) (unknown) (no (unknown) (unknown) Nitroglycerin (units ( unknown) date) (Nitroglycerin 0.4 unknown) Mg Sl Tab) 0.4 mg SL [id number] PRN (unknown) (no (unknown) (unknown) Ordered: (units [...] (units (unkno wn) date) ElsaMona MR#: unknown) [id number] (unknown) (no (unknown) (unknown) Patient: (units (unkno [...] rhythm rate (units (unknown) date) of 79 [place] 138 QRS of unknown) 94 QTC 415. [...] (unknown) (unknown) Urine Specific (units (unknown) date) [place] 1.015 unknown) (unknown) (no (unknown) (unknown) Urine [...] date) unknown) (unknown) (no (unknown) (unknown) [address] [place] [address] (units (unknown) date) unknown) (unknown) (no (unknown) [...] (unknown) (unknown) Accession Number: (units (unknown) date) [id number] ?? unknown) (unknown) (no (unknown) (unknown) Acct:[id number] (units (unknown) date) unknown) (unknown) (no (unknown) [...] Date / Time (unknown) (no (unknown) (unknown) [place], [place] (units ( unknown) date) [address] unknown) (unknown) (no (unknown) (unknown) Antibiotics) Skin [...] (unknown) (unknown) COMPARISON:? (units (u nknown) date) [facility], unknown) CR, XR CHEST 1V, 03/30/2022, [...] (unknown) (unknown) : 1960 (units (unknown) date) Acct:[id number] unknown) (unknown) (no (unknown) (unknown) : 1960 [...] (unknown) date) unknown) (unknown) (no (unknown) (unknown) [facility] (units (unknown) date) [address] unknown) [place] [address] (unknown) (no (unknown) (unknown) [facility] (units (unknown) date) unknown) (unknown) (no [...] (unknown) Lymph # (Auto) (units (unknown) date) (5134-3032) /uL unknown) (unknown) (no (unknown) (unknown) Lymph # (Auto) (units (unknown) date) 1900 (1152-8490) unknown) /uL (unknown) (no (unknown) (unknown) Lymph [...] date) unknown) (unknown) (no (unknown) (unknown) MR#: [id number] (units (unknown) date) unknown) (unknown) (no (unknown) [...] date) Ambulatory unknown) (unknown) (no (unknown) (unknown) [place] # (Auto) (units ( unknown) date) (0-900) /uL unknown) (unknown) (no (unknown) (unknown) [place] # (Auto) 600 (units (unknown) date) (0-900) /uL unknown) (unknown) (no (unknown) (unknown) [place] % (Auto) (units ( unknown) date) (3-14) % unknown) (unknown) (no (unknown) (unknown) [place] % (Auto) 10.2 (units (unknown) date) (3-14) [...] Neut # (Auto) (units ( unknown) date) (2325-1788) /uL unknown) (unknown) (no (unknown) (unknown) Neut # (Auto) 3200 (units (unknown) date) (8346-9240) /uL unknown) (unknown) (no (unknown) (unknown) Neut % (Auto) (units ( unknown) date) (50-75) % unknown) (unknown) (no (unknown) (unknown) Neut % (Auto) 53.6 (units (unknown) date) (50-75) % unknown) (unknown) (no (unknown) (unknown) Nitroglycerin (units ( unknown) date) (Nitroglycerin 0.4 unknown) Mg Sl Tab) 0.4 mg SL [id number] PRN (unknown) (no (unknown) (unknown) Ordered: (units [...] (unkno wn) date) Mona Hunter MR#: unknown) [id number] (unknown) (no (unknown) (unknown) Patient: (units (unkno [...] rhythm rate (units (unknown) date) of 79 [place] 138 QRS of unknown) 94 QTC 415. [...] (unknown) (unknown) Urine Specific (units (unknown) date) [place] 1.015 unknown) (unknown) (no (unknown) (unknown) Urine [...] description facility 2022-10-26 00:00 Smokes tobacco daily ([facility] Vital Signs date measurement value units 2022-10-26 [...]
--- NOTE | 2022-11-07 10:37 | ED Physician Documentation ---
History of Present Illness - Stated complaint Stated Complaint: UNRESP - Chief complaint Chief Complaint: Neuro - History obtained from History obtained from: EMS - Additonal information Additional information: The patient is brought to the emergency department by EMS for chief complaint of altered mental status. The patient was apparently last seen normal at 2100 last night which time she went to bed. The family discovered her this morning, unresponsive and unable to be awakened. They initially thought the patient needed CPR and did apply this, but when the fire department arrived, the patient was found to have pulses. She was not cyanotic but was found to be hypoventilating around 6 breaths/min. Because of this and her minimal responsiveness, she was intubated and the field. Medics report the patient had a sugar in the 190s and no Narcan was given. She is on multiple sedating medications including clonidine, Remeron, gabapentin, clonazepam, and Baclofen, and tramadol. It is not clear whether she has been taking her medications as directed or not. Medics state that the history from the family was fairly poor, and they do not know what the patient's baseline is or whether she drinks any alcohol. The patient is known to have liver disease, And was just seen here last week with elevated liver enzymes and bilirubin. She was also found to have mental status alteration at that time and was advised to talk to her doctor about decreasing the number of sedating medication she is on. The patient is not able to offer any information, as she is obtunded and intubated. Medics report that they have given her a total of 7 mg of Midazolam in route, and while she has been somewhat sedated, she is still slightly agitated. 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 - Present Medications Home Medications: Ambulatory Orders Medication Instructions Recorded Confirmed Baclofen 10 mg PO TID 05/09/15 10/30/22 cloNIDine HCL [Clonidine HCl] 0.1 mg PO BID 05/09/15 10/30/22 Tramadol HCl 100 mg PO QID #20 tablet 06/30/16 10/30/22 Apixaban [Eliquis] See Rx Instructions .ROUTE .COMPLEX 08/15/22 10/30/22 Gabapentin [Gralise] See Rx Instructions .ROUTE .COMPLEX 08/15/22 10/30/22 Losartan Potassium See Rx Instructions .ROUTE .COMPLEX 08/15/22 10/30/22 Mirtazapine See Rx Instructions .ROUTE .COMPLEX 08/15/22 10/30/22 Ondansetron Odt [Zofran Odt] See Rx Instructions .ROUTE .COMPLEX 08/15/22 10/30/22 Rosuvastatin Calcium [Crestor] See Rx Instructions .ROUTE .COMPLEX 08/15/22 10/30/22 clonazePAM [Clonazepam] See Rx Instructions .ROUTE .COMPLEX 08/15/22 10/30/22 - Allergies Allergies/Adverse Reactions: Allergies Allergy/AdvReac Type Severity Reaction Status Date / Time Sulfa (Sulfonamide Allergy Rash Verified 11/07/22 10:20 Antibiotics) Tetracyclines Allergy Rash Verified 11/07/22 10:20 - Social History Does the pt smoke?: Yes Smoking Status: Current every day smoker Does the pt drink ETOH?: No Does the pt have substance abuse?: No - Immunizations Immunizations are current?: Yes - POLST Patient has POLST: No PD ED PE NORMAL - Vitals Vital signs reviewed: Yes - General General: Other (Intubated, moving all 4 extremities indistinctly.) - HEENT HEENT: Atraumatic, PERRL, Moist mucous membranes, Other (Icteric) - Neck Neck: No adenopathy - Cardiac Cardiac: RRR, No murmur, Strong equal pulses - Respiratory Respiratory: Clear bilaterally, Other (Intubated, making some effort on her own.) - Abdomen Abdomen: Soft, Non tender, Non distended - Derm Derm: Warm and dry, No rash, Other (Mild jaundice) - Extremities Extremities: No deformity, No edema - Neuro Neuro: Other (Spontaneous movement in all 4 extremities. Responds to sternal rub with some localization and tears, but does not awaken.) - Psych Psych: Normal mood, Normal affect Results - Vitals Vitals: Vital Signs - 24 hr 11/07/22 11/07/22 11/07/22 10:12 10:15 10:26 Temperature 36.8 C 36.8 C Heart Rate 104 H 104 H 93 Respiratory 23 23 24 Rate Blood Pressure 179/99 H O2 Saturation 100 100 100 11/07/22 11/07/22 11/07/22 10:30 11:58 13:45 Temperature Heart Rate 93 87 74 Respiratory 24 16 16 Rate Blood Pressure 179/99 H 160/77 H 150/75 H O2 Saturation 100 98 97 11/07/22 11/07/22 11/07/22 14:30 14:59 15:46 Temperature 35.3 C L 35.2 C L Heart Rate 68 67 64 Respiratory 16 17 Rate Blood Pressure 147/78 H 153/79 H O2 Saturation 99 100 11/07/22 11/07/22 11/07/22 16:11 17:00 17:24 Temperature 34.1 C L 34.3 C L 34.3 C L Heart Rate 63 62 61 Respiratory 16 16 16 Rate Blood Pressure 174/85 H 156/82 H 156/82 H O2 Saturation 100 100 100 11/07/22 18:14 Temperature 34.8 C L Heart Rate 63 Respiratory 16 Rate Blood Pressure 161/83 H O2 Saturation 100 Oxygen O2 Source Mechanical ventilator - Labs Labs: Laboratory Tests 11/07/22 11/07/22 11/07/22 11:00 11:00 11:00 WBC 14.0 H RBC 3.85 L Hgb 11.1 L Hct 34.5 L MCV 89.6 MCH 28.8 MCHC 32.2 RDW 16.1 H Plt Count 400 MPV 10.9 H Neut # (Auto) 11.1 H Lymph # (Auto) 1.2 L [place] # (Auto) 1.4 H Eos # (Auto) 0.2 Baso # (Auto) 0.1 Absolute Nucleated RBC 0.00 Nucleated RBC % 0.0 PT INR Bld Gas Analysis Time Sample Site ABG pH ABG pCO2 ABG pO2 ABG HCO3 ABG Total CO2 ABG O2 Saturation ABG Base Excess Omer Test Respiration Rate O2 Delivery Device Vent Mode FiO2 Tidal Volume PEEP Sodium 136 Potassium 4.9 Chloride 101 Carbon Dioxide 21 Anion Gap 14.0 H BUN 55 H Creatinine 6.5 H Estimated GFR (MDRD) 6 L Glucose 122 H Lactic Acid Calcium 8.9 Total Bilirubin 6.7 H AST 591 H ALT 349 H Alkaline Phosphatase 1600 H Ammonia 26.6 Total Protein 7.6 Albumin 3.5 Globulin 4.1 Albumin/Globulin Ratio 0.9 L Lipase 41 Urine Color Urine Clarity Urine pH Ur Specific [place] Urine Protein Urine Glucose (UA) Urine Ketones Urine Occult Blood Urine Nitrite Urine Bilirubin Urine Urobilinogen Ur Leukocyte Esterase Urine RBC Urine WBC Ur Squamous Epith Cells Urine Bacteria Ur Microscopic Review Urine Culture Comments Nasal Adenovirus (PCR) Nasal B. parapertussis DNA (PCR) Nasal Coronavir 229E PCR Nasal Coronavir HKU1 PCR Nasal Coronavir NL63 PCR Nasal Coronavir OC43 PCR Nasal Enterovir/Rhinovir PCR Nasal Influenza B PCR Nasal Influenza A PCR Nasal Parainfluen 1 PCR Nasal Parainfluen 2 PCR Nasal Parainfluen 3 PCR Nasal Parainfluen 4 PCR Nasal RSV (PCR) Nasal B.pertussis DNA PCR Nasal C.pneumoniae (PCR) Lamine Human Metapneumo PCR Nasal M.pneumoniae (PCR) Nasal SARS-CoV-2 (PCR) Salicylates < 6.0 Urine Opiates Screen Ur Oxycodone Screen Urine Methadone Screen Ur Propoxyphene Screen Acetaminophen < 10 L Ur Barbiturates Screen Ur Tricyclics Screen Ur Phencyclidine Scrn Ur Amphetamine Screen U Methamphetamines Scrn U Benzodiazepines Scrn Urine Cocaine Screen U Cannabinoids Screen Ethyl Alcohol < 5.0 11/07/22 11/07/22 11/07/22 11:00 11:00 11:33 WBC RBC Hgb Hct MCV MCH MCHC RDW Plt Count MPV Neut # (Auto) Lymph # (Auto) [place] # (Auto) Eos # (Auto) Baso # (Auto) Absolute Nucleated RBC Nucleated RBC % PT 15.0 H INR 1.4 H Bld Gas Analysis Time Sample Site ABG pH ABG pCO2 ABG pO2 ABG HCO3 ABG Total CO2 ABG O2 Saturation ABG Base Excess Omer Test Respiration Rate O2 Delivery Device Vent Mode FiO2 Tidal Volume PEEP Sodium Potassium Chloride Carbon Dioxide Anion Gap BUN Creatinine Estimated GFR (MDRD) Glucose Lactic Acid 0.8 Calcium Total Bilirubin AST ALT Alkaline Phosphatase Ammonia Total Protein Albumin Globulin Albumin/Globulin Ratio Lipase Urine Color YELLOW Urine Clarity HAZY Urine pH 6.0 Ur Specific [place] <=1.005 Urine Protein 30 H Urine Glucose (UA) NEGATIVE Urine Ketones NEGATIVE Urine Occult Blood MODERATE H Urine Nitrite NEGATIVE Urine Bilirubin NEGATIVE Urine Urobilinogen 0.2 (NORMAL) Ur Leukocyte Esterase NEGATIVE Urine RBC 6-10 H Urine WBC 0-3 Ur Squamous Epith Cells RARE Squamous Urine Bacteria Rare Ur Microscopic Review INDICATED Urine Culture Comments NOT INDICATED Nasal Adenovirus (PCR) Nasal B. parapertussis DNA (PCR) Nasal Coronavir 229E PCR Nasal Coronavir HKU1 PCR Nasal Coronavir NL63 PCR Nasal Coronavir OC43 PCR Nasal Enterovir/Rhinovir PCR Nasal Influenza B PCR Nasal Influenza A PCR Nasal Parainfluen 1 PCR Nasal Parainfluen 2 PCR Nasal Parainfluen 3 PCR Nasal Parainfluen 4 PCR Nasal RSV (PCR) Nasal B.pertussis DNA PCR Nasal C.pneumoniae (PCR) [place] Human Metapneumo PCR Nasal M.pneumoniae (PCR) Nasal SARS-CoV-2 (PCR) Salicylates Urine Opiates Screen NEGATIVE Ur Oxycodone Screen NEGATIVE Urine Methadone Screen NEGATIVE Ur Propoxyphene Screen NEGATIVE Acetaminophen Ur Barbiturates Screen NEGATIVE Ur Tricyclics Screen NEGATIVE Ur Phencyclidine Scrn NEGATIVE Ur Amphetamine Screen NEGATIVE U Methamphetamines Scrn NEGATIVE U Benzodiazepines Scrn NEGATIVE Urine Cocaine Screen NEGATIVE U Cannabinoids Screen NEGATIVE Ethyl Alcohol 11/07/22 11/07/22 11/07/22 11:35 11:35 15:29 WBC RBC Hgb Hct MCV MCH MCHC RDW Plt Count MPV Neut # (Auto) Lymph # (Auto) [place] # (Auto) Eos # (Auto) Baso # (Auto) Absolute Nucleated RBC Nucleated RBC % PT INR Bld Gas Analysis Time 1143 Sample Site RIGHT BRACHIAL ABG pH 7.46 H ABG pCO2 24 L* ABG pO2 179 H* ABG HCO3 17.1 L ABG Total CO2 17.8 L ABG O2 Saturation 99 H ABG Base Excess -5.3 L Omer Test NOT APPLICABLE Respiration Rate 20 O2 Delivery Device VENTILATOR Vent Mode ASSIST/CONTROL FiO2 50.00 Tidal Volume 400 PEEP 5 Sodium 141 Potassium 4.1 Chloride 112 H Carbon Dioxide 17 L Anion Gap 12.0 BUN 50 H Creatinine 5.7 H Estimated GFR (MDRD) 8 L Glucose 120 H Lactic Acid Calcium 7.7 L Total Bilirubin 5.7 H AST 458 H ALT 278 H Alkaline Phosphatase 1292 H Ammonia Total Protein 6.2 L Albumin 2.6 L Globulin 3.6 Albumin/Globulin Ratio 0.7 L Lipase 34 Urine Color Urine Clarity Urine pH Ur Specific [place] Urine Protein Urine Glucose (UA) Urine Ketones Urine Occult Blood Urine Nitrite Urine Bilirubin Urine Urobilinogen Ur Leukocyte Esterase Urine RBC Urine WBC Ur Squamous Epith Cells Urine Bacteria Ur Microscopic Review Urine Culture Comments Nasal Adenovirus (PCR) NOT DETECTED Nasal B. parapertussis DNA (PCR) NOT DETECTED Nasal Coronavir 229E PCR NOT DETECTED Nasal Coronavir HKU1 PCR NOT DETECTED Nasal Coronavir NL63 PCR NOT DETECTED Nasal Coronavir OC43 PCR NOT DETECTED Nasal Enterovir/Rhinovir PCR NOT DETECTED Nasal Influenza B PCR NOT DETECTED Nasal Influenza A PCR NOT DETECTED Nasal Parainfluen 1 PCR NOT DETECTED Nasal Parainfluen 2 PCR NOT DETECTED Nasal Parainfluen 3 PCR NOT DETECTED Nasal Parainfluen 4 PCR NOT DETECTED Nasal RSV (PCR) NOT DETECTED Nasal B.pertussis DNA PCR NOT DETECTED Nasal C.pneumoniae (PCR) NOT DETECTED [place]amine Human Metapneumo PCR NOT DETECTED Nasal M.pneumoniae (PCR) NOT DETECTED Nasal SARS-CoV-2 (PCR) NOT DETECTED Salicylates Urine Opiates Screen Ur Oxycodone Screen Urine Methadone Screen Ur Propoxyphene Screen Acetaminophen Ur Barbiturates Screen Ur Tricyclics Screen Ur Phencyclidine Scrn Ur Amphetamine Screen U Methamphetamines Scrn U Benzodiazepines Scrn Urine Cocaine Screen U Cannabinoids Screen Ethyl Alcohol - Rads (name of study) CT head Radiology: Final report received, See rad report (Negative for acute findings) Procedures - Central Line - Major Central Line Preparation: Unable to obtain consent, Sterile prep and drape Central line location: Right Subclavian Central line type: Triple lumen Central line aftercare: Chlorhexidine disc placed, Secured, Placement confirmed, No pneumothorax, No complications, Pt tolerated well PD Medical Decision Making - ED course Complexity details: reviewed old records, reviewed results, re-evaluated patient, considered differential, d/w business system consultant ED course: The patient was intubated upon arrival, but was still moving all 4 extremities. On sternal rub, she did tear heavily and localize somewhat to pain, but did not wake up. She was kept on the ventilator, With ABG showing mild alkalosis at a pH of 7.464, low PCO2 at 24.3 and a PO2 of 179. The patient's ventilator rate was decreased in response to this, as was her FiO2. and continued to be intermittently agitated. She initially received spot doses of sedatives in hopes that she would be able to be monitored for improvement of mental status and perhaps extubated; however, it became Imperative to sedate the patient better so that she could tolerate CT scan and other interventions, and so she was placed on a propofol drip. I ordered and reviewed the following tests: CT of the head was unremarkable; CT of the abdomen showed a contracted gallbladder with some sludge. No other acute findings. Ultrasound of the patient's right upper quadrant showed gallbladder contraction and possible sludge with no dilatation of the common bile duct. ER abdominal panel was performed and showed a significant increase in the patient's bilirubin and all LFTs since her visit last week. She was also found to have a profound increase in her renal failure in the past week, with a creatinine of 6.5. Her CBC showed an elevated white blood cell count but was otherwise unremarkable. Ammonia level was normal. I ordered an initial x-ray upon the patient's arrival to assess the position of the tube, and this showed good tube placement and unremarkable lung findings. NG tube and central line were placed, and a second x-ray of the chest was performed to assess the positions of these, and also showed the lines and tubes to be in good placement. The patient received a total of 5 L of normal saline in the emergency department. After the first 3 L, labs were repeated and showed an improvement in the creatinine from 6.5-5.7, and an improvement in the bilirubin from 6.7-5.7 on my review. All of the liver enzymes did improve somewhat on repeat laboratory studies. I reviewed the patient's prior records a nd found that she had gone through a break-up within the last month which had caused her to be quite depressed. The patient already has a history of being on multiple sedating medications, and I suspected that the patient was at least overmedicating. The family was not sure if there had been an overdose intentionally or not. The patient's alcohol level, which was ordered by me, was negative on my review. She also had negative aspirin and Tylenol levels which were ordered and reviewed by me. I discussed the patient's case with Dr. Vásquez, who felt that the patient was too complicated to stay here, especially considering her liver. I did discuss the case with Dr. Wheeler, who was the on-call hair clipper power at [facility] and he did agree to accept the patient in transfer. - Critical Care Time(min): 90 Comments: Critical care time was necessary, due to high probability of imminent and life- threatening decline, secondary to MANAGER ESTATE depression with respiratory failure, due to presumed medication effect, acute renal failure, and acute on chronic hepatic failure. Time Includes: Direct patient care, Review records, Reassess patient, Document care, Coordinate care, Medical consult, See progress note Data interpretation: Labs, Pulse ox, ABG, CXR, Cardiac output, See progress note Procedures included in critical care time: Ventilator mgmt, See progress note Procedures excluded from critical care time: Central IV Departure - Departure Disposition: 02 Transfer Acute Care Hosp Clinical Impression: Acute renal failure Qualifiers: Acute renal failure type: unspecified Qualified Code(s): N17.9 - Acute kidney failure, unspecified Hepatic failure Qualifiers: Liver failure chronicity: unspecified chronicity Hepatic coma status: without hepatic coma Qualified Code(s): K72.90 - Hepatic failure, unspecified without coma Altered mental status Qualifiers: Altered mental status type: delirium Qualified Code(s): R41.0 - Disorientation, unspecified Medication adverse effect Qualifiers: Encounter type: initial encounter Qualified Code(s): T50.905A - Adverse effect of unspecified drugs, medicaments and biological substances, initial encounter Condition: Critical
[2022-11-07] MEDS ORDERED: LORazepam 2 MG/ML VIAL IVP STA (10:41)
--- NOTE | 2022-11-07 10:59 | XRAY Report ---
PROCEDURE: Chest for Line Placement INDICATIONS: INTUBATED TECHNIQUE: One view of the chest was acquired. COMPARISON: None. FINDINGS: Surgical changes and devices: Endotracheal tube is 4.5 cm above the sally. Lungs and pleura: No pleural effusions or pneumothorax. Lungs are clear. Mediastinum: Mediastinal contours appear normal. Heart size is normal. Aortic atherosclerotic calc ifications are present. Bones and chest wall: No suspicious bony lesions. Overlying soft tissues appear unremarkable. IMPRESSION: Endotracheal tube in satisfactory position. No acute pulmonary opacity. Reviewed by: Cruz Hodges MD on 11/07/2022 10:57 AM [facility] Approved by: Cruz Hodges MD on 11/07/2022 10:57 AM [facility] Station ID: [id number]
[2022-11-07 11:11] LABS: BASOPHILS # (AUTO) 0.1 10^3/uL (0.0-0.1); BASOPHILS % (AUTO) 0.4 %; EOSINOPHILS # (AUTO) 0.2 10^3/uL (0.0-0.7); EOSINOPHILS % (AUTO) 1.1 %; HCT - HEMATOCRIT 34.5 % (37.0-47.0); HGB - HEMOGLOBIN 11.1 g/dL (12.0-16.0); LYMPHOCYTES # (AUTO) 1.2 10^3/uL (1.5-3.5); LYMPHOCYTES % (AUTO) 8.4 %; MEAN CORPUSCULAR HEMOGLOBIN 28.8 pg (27.0-31.0); MEAN CORPUSCULAR HGB CONC 32.2 g/dL (32.0-36.0); MEAN CORPUSCULAR VOLUME 89.6 fL (81.0-99.0); MEAN PLATELET VOLUME 10.9 fL (7.9-10.8); MONOCYTES # (AUTO) 1.4 10^3/uL (0.0-1.0); MONOCYTES % (AUTO) 9.9 %; NEUTROPHILS # (AUTO) 11.1 10^3/uL (1.5-6.6); NEUTROPHILS % (AUTO) 79.7 %; PLT - PLATELET COUNT 400 10^3/uL (130-450); RED BLOOD COUNT 3.85 10^6/uL (4.20-5.40); RED CELL DISTRIBUTION WIDTH 16.1 % (12.0-15.0)
--- NOTE | 2022-11-07 11:20 | CT Report ---
PROCEDURE: HEAD WO INDICATIONS: aloc TECHNIQUE: Noncontrast 4.5 mm thick angled axial sections acquired from the foramen magnum to the vertex. For r adiation dose reduction, the following was used: automated exposure control, adjustment of mA and/or kV according to patient size. COMPARISON: 10/30/2022 FINDINGS: Image quality: Excellent. CSF spaces: Basal cisterns are patent. No extra-axial fluid collections. Ventricles are normal in size and shape. Brain: Encephalomalacia involving the right occipital lobe. No evidence of hemorrhage. No findings o f acute edema. Vo-white matter differentiation is otherwise normally maintained. No intracranial ma sses or midline shift. Skull and face: Calvarium and visualized facial bones are intact, without suspicious lesions. Sinuses: Visualized sinuses and mastoids are clear. IMPRESSION: 1. No CT evidence of acute intracranial process. 2. 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 Reviewed by: Radha Glass MD on 11/07/2022 10:19 AM [facility] Approved by: Radha Glass MD on 11/07/2022 10:19 AM [facility] Station ID: [id number]
[2022-11-07 11:34] LABS: ACETAMINOPHEN < 10 ug/mL (10-30); ALBUMIN 3.5 g/dL (3.2-5.5); ALBUMIN/GLOBULIN RATIO 0.9 (1.0-2.2); ALKALINE PHOSPHATASE 1600 IU/L (42-121); ALT ALANINE AMINOTRANSFERASE 349 IU/L (10-60); AST ASPARTATE AMINOTRANSFERASE 591 IU/L (10-42); BILIRUBIN,TOTAL 6.7 mg/dL (0.2-1.0); BUN - BLOOD UREA NITROGEN 55 mg/dL (6-20); CALCIUM 8.9 mg/dL (8.5-10.3); CARBON DIOXIDE - CO2 21 mmol/L (21-32); CHLORIDE 101 mmol/L (101-111); CREATININE 6.5 mg/dL (0.4-1.0); ETOH - ETHANOL < 5.0 mg/dL; GFR - MDRD 6 (>89); GLUCOSE 122 mg/dL (70-100); LIPASE 41 U/L (22-51); POTASSIUM 4.9 mmol/L (3.5-5.0); SALICYLATE < 6.0 mg/dL; SODIUM 136 mmol/L (135-145); TOTAL PROTEIN 7.6 g/dL (6.7-8.2)
[2022-11-07 11:40] LABS: MUDS CUTOFF CONCENTRATIONS CUTOFF CONC BELOW:
[2022-11-07 11:42] LABS: BILIRUBIN,URINE NEGATIVE (NEGATIVE); GLUCOSE, URINE (UA) NEGATIVE (NEGATIVE); KETONES,URINE (UA) NEGATIVE (NEGATIVE); LEUKOCYTE ESTERASE, URINE NEGATIVE (NEGATIVE); NITRITE,URINE NEGATIVE (NEGATIVE); OCCULT BLOOD,URINE MODERATE (NEGATIVE); PROTEIN,URINE 30 mg/dL (NEGATIVE); UROBILINOGEN,URINE 0.2 (NORMAL) E.U./dL (NORMAL)
[2022-11-07 11:46] LABS: CLARITY,URINE HAZY (CLEAR)
[2022-11-07 11:48] LABS: ABG PH 7.46 (7.35-7.45)
[2022-11-07 11:49] LABS: ABG BASE EXCESS -5.3 mmol/L (-2.0-3.0); ABG HCO3 17.1 mmol/L (22.0-26.0); ABG MODE OF VENTILATION ASSIST/CONTROL; ABG OXYGEN SATURATION 99 % (94-98); ABG RESPIRATORY RATE 20 b/min; ABG TCO2 17.8 MMOL/L (21.0-29.0)
[2022-11-07 11:52] LABS: ABG PCO2 24 mmHg (34-45); ABG PO2 179 mmHg (80-100)
[2022-11-07 12:01] LABS: AMPHETAMINE SCREEN,URINE NEGATIVE (NEGATIVE); BARBITURATE SCREEN,UR NEGATIVE (NEGATIVE); BENZODIAZEPINES SCREEN, URINE NEGATIVE (NEGATIVE); COCAINE SCREEN URINE NEGATIVE (NEGATIVE); METHADONE SCREEN, URINE NEGATIVE (NEGATIVE); METHAMPHETAMINES SCREEN, URINE NEGATIVE (NEGATIVE); OPIATE SCREEN, URINE NEGATIVE (NEGATIVE); OXYCODONE SCREEN, URINE NEGATIVE (NEGATIVE); PROPOXYPHENE SCREEN, URINE NEGATIVE (NEGATIVE); THC CANNABINOID SCREEN, URINE NEGATIVE (NEGATIVE); TRICYCLIC ANTIDEPRESSANT,URINE NEGATIVE (NEGATIVE)
[2022-11-07 12:08] LABS: BACTERIA,URINE Rare /HPF (None Seen); SQUAMOUS EPITHELIAL CELL,UR RARE Squamous (<= Few); WBC,URINE 0-3 /HPF (0-5)
[2022-11-07] MEDS ORDERED: PROPOFOL 1000 MG/100 ML 1,000 MG/100 ML BOTTLE IV STA (12:25)
--- NOTE | 2022-11-07 13:49 | CT Report ---
PROCEDURE: ABDOMEN/PELVIS WO INDICATIONS: elevated LFTs, jaundice TECHNIQUE: Noncontrast 5 mm thick sections acquired from the diaphragms to the symphysis. 5 mm coronal and sagi ttal reformats were then performed. For radiation dose reduction, the following was used: automated exposure control, adjustment of mA and/or kV according to patient size. COMPARISON: None. FINDINGS: Image quality: Suboptimal as there is a metallic object immediately adjacent to the left upper quadra nt. ABDOMEN: Lung bases: Lung bases are clear. Heart size is normal. Solid organs: The liver is normal size with a smooth margin. There is either a central biliary dilat ation or moderate periportal edema, not well discerned without IV contrast. The gallbladder appears d ecompressed and there is high density material within it. Biliary tree is not well seen. Pancreas is within normal limits. The spleen is normal size. Linear calcification seen in the right adrenal gland . Left adrenal is within normal limits. Punctate nonobstructing left intrarenal calculus. No right in trarenal calculi. No hydronephrosis or hydroureter. Peritoneum and bowel: Nasogastric tube is curled in the proximal stomach. The stomach is decompresse d. Small bowel loops are decompressed. There is a normal appendix. Increased quantity of solid stool seen in the colon. No rectal obstipation. No free fluid or free air. Nodes and vessels: No retroperitoneal or mesenteric adenopathy by size criteria. Aorta and inferior vena cava are normal in caliber. Heavy calcification of the abdominal aorta. Miscellaneous: No ventral hernias. PELVIS: Genitourinary: Bladder wall thickness is normal. Dukes catheter is present, decompressing the urina ry bladder. Miscellaneous: No inguinal hernias or adenopathy. Small amount of air is present in the left femora l vein, presumably from recent access attempt.. Bones: No suspicious bony lesions. No vertebral body compression fractures. IMPRESSION: 1. Decompressed gallbladder containing high density material, probably sludge. 2. Suboptimal visualization of the biliary tree due to lack of IV contrast and beam hardening artifac t. Ultrasound is recommended for further evaluation. MRI would not be helpful unless the patient can cooperate with breathing instructions. 3. Nonobstructing punctate left intrarenal calculus. Reviewed by: Radha Glass MD on 11/07/2022 12:48 PM [facility] Approved by: Radha Glass MD on 11/07/2022 12:48 PM [facility] Station ID: [id number]
[2022-11-07 13:56] LABS: B. PARAPERTUSSIS- RESP PCR PAN NOT DETECTED; B. PERTUSSIS- RESP PCR PANEL NOT DETECTED; C. PNEUMONIAE- RESP PCR PANEL NOT DETECTED; CORONAVIRUS 229E-RESP PCR NOT DETECTED; CORONAVIRUS HKU1-RESP PCR NOT DETECTED; CORONAVIRUS NL63-RESP PCR NOT DETECTED; CORONAVIRUS OC43-RESP PCR NOT DETECTED; HUMAN METAPNEUMOVIRUS NOT DETECTED; INFLUENZA A- RESP PCR PANEL NOT DETECTED; INFLUENZA B - RESP PCR PANEL NOT DETECTED; M. PNEUMONIAE- RESP PCR PANEL NOT DETECTED; PARAINFLUENZA VIRUS 1 NOT DETECTED; PARAINFLUENZA VIRUS 2 NOT DETECTED; PARAINFLUENZA VIRUS 3 NOT DETECTED; PARAINFLUENZA VIRUS 4 NOT DETECTED; RHINOVIRUS/ENTEROVIRUS NOT DETECTED; RSV- RESP PCR PANEL NOT DETECTED; SARS-CoV-2 -RESP PCR PANEL NOT DETECTED
--- NOTE | 2022-11-07 14:21 | XRAY Report ---
PROCEDURE: Chest for Line Placement INDICATIONS: line placement TECHNIQUE: One view of the chest was acquired. COMPARISON: Chest radiographs 11/07/2022 at 10:20 AM. FINDINGS: Surgical changes and devices: Endotracheal tube is seen with tip approximately 3.5 cm above the sriram na. An enteric tube traverses the diaphragm with tip directed cephalad in the left upper quadrant. Ri ght subclavian catheter is seen with catheter tip projecting over the superior vena cava. Lungs and pleura: No pleural effusions or pneumothorax. Lungs are clear. Mediastinum: Mediastinal contours appear normal. Heart size is normal. Bones and chest wall: No suspicious bony lesions. Overlying soft tissues appear unremarkable. IMPRESSION: Lines and tubes in satisfactory positions. Reviewed by: Cruz Hodges MD on 11/07/2022 2:20 PM PST Approved by: Cruz Hodges MD on 11/07/2022 2:20 PM PST Station ID: [id number]
[2022-11-07 15:23] LABS: INR 1.4 (0.8-1.2)
[2022-11-07 15:56] LABS: ALBUMIN 2.6 g/dL (3.2-5.5); ALBUMIN/GLOBULIN RATIO 0.7 (1.0-2.2); BILIRUBIN,TOTAL 5.7 mg/dL (0.2-1.0); CALCIUM 7.7 mg/dL (8.5-10.3); CREATININE 5.7 mg/dL (0.4-1.0); POTASSIUM 4.1 mmol/L (3.5-5.0); TOTAL PROTEIN 6.2 g/dL (6.7-8.2)
--- NOTE | 2022-11-07 16:27 | Ultrasound Report ---
PROCEDURE: Abdomen Limited INDICATIONS: h/o gallbladder sludge, worsening LFTs/bili TECHNIQUE: Real-time focused scanning was performed of the abdomen, with image documentation. COMPARISON: 11/07/2022 CT abdomen and pelvis FINDINGS: Decompressed and contracted gallbladder with no wall thickening. Small volume sludge in th e gallbladder. No pericholecystic fluid. Common duct measures up to 6 mm. No intrahepatic biliary toni mundo dilatation. Normal hepatic parenchymal echogenicity. Mildly coarsened echotexture. Limited visual ization of the pancreas due to bowel gas. Partially visualized portions grossly normal. Right kidney unremarkable. IMPRESSION: Contracted gallbladder containing a small volume of sludge with no wall thickening or para cholecysti c fluid. Cholecystitis is considered unlikely. No biliary ductal dilatation. Coarsened hepatic echotexture could indicate diffuse hepatocellular disease. Reviewed by: Hitesh Azul MD on 11/07/2022 4:26 PM PST Approved by: Hitesh Azul MD on 11/07/2022 4:26 PM PST Station ID: [id number]
[2022-11-07 18:22] VITALS: BP 161/83
[2022-11-08 04:09] LABS: HBsAG SCREEN Negative (Negative); HCV AB <0.1 s/co ratio (0.0-0.9); HEPATITIS B CORE IGM AB Negative (Negative)
== END 2022-11-07 19:09 | disposition short-term general hospital (02) ==
LOC: EDUNIT# → ED 10:12
DX: E87.3 Alkalosis (principal); N17.9 Acute kidney failure, unspecified; K72.90 Hepatic failure, unspecified without coma; R41.0 Disorientation, unspecified; T50.905A Adverse effect of unspecified drugs, medicaments and biological substances, initial encounter; F17.200 Nicotine dependence, unspecified, uncomplicated; Z20.822 Contact with and (suspected) exposure to COVID-19
CPT/HCPCS: 36415; 36556; 36600; 70450; 74176; 76705; 80053; 80306; 80307; 81001; 82140; 82803; 83605; 83690; 85025; 85610; 86705; 86709; 86803; 87040; 87340; 87633; 94002; 96361; 96365; 96366; 96375; 99291; 99292; G0480; J2060; 80320; 80329; 81003; 87086; 94770